=== PATIENT | female | born 1970 | race Caucasian/White ===

== ENCOUNTER 2022-12-16 15:24 | Outpatient (OUT) | payer MEDICARE, MEDICAID, SELFPAY ==
[2022-12-16 15:55] LABS: Basophils Percent Auto 0.6 % (0.2-2.0); Eosinophils Absolute Auto 0.2 10^3/uL (0.0-0.7); Hematocrit 43.8 % (36.0-48.0); Hemoglobin 14.3 g/dL (12.0-16.0); Immature Granulocytes Abs Auto 0.01 10^3/uL (0.00-0.03); Immature Granulocytes Pct Auto 0.2 % (0.0-0.5); Lymphocytes Absolute Auto 1.9 10^3/uL (1.2-3.8); Lymphocytes Percent Auto 30.5 % (20.5-60.0); Mean Corpuscular HGB Conc 32.6 g/dL (29.9-35.2); Mean Corpuscular Hemoglobin 30.3 pg (26.7-34.0); Mean Corpuscular Volume 92.8 fL (81.0-99.0); Mean Platelet Volume 10.1 fL (9.5-13.5); Monocytes Absolute Auto 0.3 10^3/uL (0.3-0.8); Monocytes Percent Auto 4.8 % (1.7-12.0); Neutrophils Absolute Auto 3.8 10^3/uL (1.4-6.5); Neutrophils Percent Auto 60.9 % (43.0-75.0); Platelet Count 238 10^3/uL (150-450); Red Blood Count 4.72 10^6/uL (4.20-5.40); Red Cell Distribution Width 13.9 % (11.0-15.0); White Blood Count 6.3 10^3/uL (4.0-11.0)
[2022-12-16 16:15] LABS: Estimated Average Glucose 197 mg/dL; Glycohemoglobin A1C 8.5 % (4.5-6.2)
[2022-12-16 16:25] LABS: HCG Quantitative 3 mIU/mL; Thyroid Stimulating Hormone 1.628 uIU/mL (0.358-3.740)
[2022-12-18 08:11] LABS: Prolactin 9.7 ng/mL (4.8-23.3)
== END 2022-12-16 15:25 | disposition home or self-care (01) ==
LOC: LAB 15:31
PROVIDERS: Visit Provider Physician Assistant
DX: N91.2 Amenorrhea, unspecified (principal)
CPT/HCPCS: 36415; 83036; 84146; 84443; 84702; 85025

== ENCOUNTER 2023-01-18 19:08 | Outpatient (REF) | payer MEDICARE, MEDICAID, SELFPAY ==
[2023-01-22 13:12] LABS: Age Gdln ACOG Testing Note (.); HPV Aptima Negative (Negative); IGP, Aptima HPV, rfx 16/18,45 Note (.)
== END 2023-01-18 19:09 | disposition home or self-care (01) ==
LOC: LAB 19:08
PROVIDERS: Visit Provider Physician Assistant
DX: Z01.419 Encounter for gynecological examination (general) (routine) without abnormal findings (principal)
CPT/HCPCS: 87624; G0145

== ENCOUNTER 2024-03-21 20:20 | Outpatient (REF) | payer MEDICARE, MEDICAID, SELFPAY ==
--- OUTSIDE RECORDS SUMMARY | 2024-03-21 20:26 | XMS_ITS | CCD ---
Author Organization [facility] Care Team Providers Care Insurance Claim Approver Name Role Phone Breanna Galvan Dot Primary Care Provider ALMA DELIA HAILE Referring Unavailab le BILLY GALVANEW Dot Primary Care Unavailable ALMA DELIA HAILE Admitting Unavailab ALMA DELIA Moncada Attending Unavailab le COLE BREANNA oDt Primary Care Unavailable COLEBREANNA DAWSON Primary Care Physician [phone] MELINA MUNOZ Attending Unavailable MELINA MUNOZ Surgeon Unavailable [place] Procedure Practitioner Unavailab le COLEBREANNA DAWSON Primary Care Unavailable COLE, BREANNA Referring Unavailable MELINA MUNOZ Admitting Unavailable MARCIO HYDE Admitting Unavailable MARCIO HYDE Attending Unavailable COLE, BREANNA Primary Care Unavailable COLE, BREANNA Referring Unavailable MARCIO HYDE Surgeon Unavailable [place] Procedure Practitioner Unavailab MELINA Valdes Attending Unavailable COLE, BREANNA Primary Care Unavailable SELF, REFERRED Referring Unavailable MELINA MUNOZ Admitting Unavailable ColeBreanna Unavailable Cole, Breanna Unavailable Danny Wright Unavailable Aranza Javed Unavailable DO Cole Breanna Dot Primary Care Provider MD Iglesia Cadet Attending Provider Alyse Goins Unavailable TAYLOR ., DR ARIAS Attending Unavailvíctor VAZQUEZ ., DR ARIAS Admitting Unavailabl e COLE BREANNA Primary Care Unavailable Luis Castellano Unavailable Andreina Thao Primary Care Physician DO Breanna Galvan Primary Care Provider [phone] MD Gordon Baker Attending Provider [phone] MD Luis Castellano Attending Provider [phone] MD Melina Salgado Attending Provider [phone] Melina Salgado Unavailable MD Melina Salgado Attending Provider [phone] NON STAFF Primary Care Provider Unavailvíctor Thao MD, Andreina Primary Care Provider KAI VIDAL Attending Unavailable KAI VIDAL Attending Unavailable VANDANA ROTHMAN Attending Unavailable KAI VIDAL Attending Unavailable MELINA SALGADO Referring Unavailable KAI VIDAL Attending Unavailable NON STAFF Primary Care Provider UnavailDO Kai Rosas Attending Provider DO Breanna Galvan Primary Care Provider [phone] MD Maynor Baker Attending Provider [phone] DO Breanna Galvan Primary Care Provider [phone] MD Maynor Baker Attending Provider DAVID APPLE Attending Unavailable GUDIMELLA, ANDREINA Referring Unavailable GUDIMELLA, ANDREINA Primary Care Unavailable GUDIMELLA, ANDREINA Referring Unavailable BREANNA GALVAN Primary Care Unavailable GUDIMELLA, ANDREINA Primary Care Unavailable RENATO COOPER Attending Unavailable ALBIN RENDON Admitting Unavailable RENATO COOPER Attending Unavailable RENATO COOPER Referring Unavailable GUDIMELLA, ANDREINA Primary Care Unavailable ALBIN RENDON Attending Unavailable ALBIN RENDON Referring Unavailable KEESHA, ANDREINA Primary Care Unavailable Kai Vidal Admitting Unavailable NON STAFF Primary Care Unavailable Kai Vidal Attending Unavailable NON STAFF Primary Care Unavailable Kai Vidal Attending Unavailable Kai Vidal Admitting Unavailable Breanna Galvan Primary Care Unavailable Maynor Baker Attending Unavailab Maynor Varma Admitting Unavailab allie Thao MD Andreina Attending Unavailable Kai Vidal Admitting Unavailable Kai Vdial Attending Unavailable MD Keesha Andreina Admitting Unavailable MD Keesha Andreina Attending Unavailable MD Keesha Andreina Attending Unavailable MD Keesha Andreina Attending Unavailable MD Keesha Sina Attending Unavailable MD Keesha Andreina Attending Unavailable MD Keesha Andreina Attending Unavailable MD Keesha Andreina Admitting Unavailable MD Keesha Andreina Attending Unavailable MD Keesha Andreina Referring Unavailable Allergies Allergy Classification Reported Allergen(s) Allergy Type Date of Onset Reaction(s) Facility (1 source) [id number] Drug allergy (disorder) 12-09-2009 [facility] Medications Current Medications Medication Drug Class(es) Dates Sig (Normalized) Sig (Original) acetaminophen 500 mg oral tablet (4 sources) Start: 06-15-2023 take 2 tablets by mouth every six hours Acetaminophen (Tylenol Extra Strength) 500 mg tablet Active 1000 MG PO Every 6 hours June 15, 2023 12:00am acetaminophen (M APAP ARTHRITIS PAIN) 650 MG extended release tablet Take 650 mg by mouth as needed 0 Active acetaminophen 325 mg / HYDROcodone bitartrate 5 mg oral tablet (20 sources) Opioid Agonist Start: 06-29-2023 take 1 tablet by mouth every six hours as needed for pain HYDROcodone-acetaminophen ([place]) 5-325 MG tablet 1 TAB ORALLY EVERY 6 HOURS NEEDED FOR PAIN FOR 7 DAYS 06/29/2023 Active Start: 12-26-2018 End: 12-26-2018 HYDROcodone-acetaminophen (N ORCO) 5-325 MG per tablet 2 tablet take 1 tablet by chleo th every six hours HYDROcodone-Acetaminophen 5-325 MG 1 tab let as needed Orally every 6 hrs ER Active [id number] actuat albuterol 0.09 mg/actuat metered dose inhaler (4 sources) beta2-Adrenergic Agonist Start: 01-03-2023 take 2 puff(s) by inhalation every six hours albuterol HFA 90 mcg/act inhaler Inhale 2 puffs every 6 (six) hours 0 01/03/2023 Active albuterol sulfat e HFA 108 (90 Base) MCG/ACT inhaler Ventolin HFA 90 mcg/actuation aerosol inhaler 0 Active alcohol prep pads (20 sources) Start: 01-02-2018 Start: 01-02-2018 alcohol prep p ads as directed once daily for 30 days Dec, Active Alcohol swabs for glucose checks (1 source) Start: 01-03-2024 Alcohol swabs for glucose checks Alcohol swabs for glucose checks, See Instructions, 100 EA, 11, Alcohol swabs for glucose checks, [facility]/pharmacy #[id number], Supply, 161, cm, 09/29/23 15:55:00 EDT, Height/Length Dosing, 88.3, kg, 09/29/23 15:55:00 EDT, Weight Dosing Start Date: 01/03/24 Status: Ordered ARIPiprazole 10 mg oral tablet (20 sources) Atypical Antipsychotic Start: 08-19-2022 take 1 tablet by mouth once daily aripiprazole 10 mg Tab 10 mg = 1 tab(s), Oral, Daily, # 90 tab(s), Refills(s) 0 Start Date: 08/19/22 Status: Ordered Start: 07-22-2022 ARIPiprazole ( Abilify) 15 MG tablet TAKE 1 TABLET BY ORAL ROUTE 1 AT BEDTIME CHANGE IN DOSAGE 07/28/2022 Active Start: 07-22-2022 take 10 mg by mouth once daily Aripiprazole Active 10 MG PO Daily July 22, 2022 12:00am azithromycin 250 mg oral tablet (1 source) Macrolide Antimicrobial Start: 11-17-2022 End: 11-20-2022 take 1 tablet by mouth once daily azithromycin 250 mg Tab 250 mg = 1 tab(s), Oral, Daily, X 3 day(s), # 3 tab(s), Refills(s) 0, Pharmacy: [facility]/pharmacy #[id number], 160, cm, 11/14/22 18:51:00 EDT, Height/Length Dosing, 93, kg, 11/14/22 18:51:00 EDT, Weight Dosing Start Date: 11/17/22 Stop Date: 11/20/22 Status: Ordered benzocaine 0.2 mg/mg oral gel (4 sources) Standardized Chemical Allergen Start: 03-31-2023 Orajel 20% mucous membrane gel See Instructions, 15 gm, Refill(s) 1, Apply to affected area BID, [facility]pharm[facility] #[id number], 160, cm, 03/31/23 14:00:00 EST, Height/Length Dosing, 85.4, kg, 03/31/23 14:00:00 EST, Weight Dosing Start Date: 03/31/23 Status: Ordered Blood Glucose Test - (20 sources) Start: 01-02-2018 Start: 01-02-2018 Blood Glucose Test - as directed In Vitro once daily for 30 days dx: E11.29 Dec, Active busPIRone hydrochloride 10 mg oral tablet (20 sources) Start: 08-19-2022 take 1 tablet by mouth twice daily busPIRone 10 mg Tab 10 mg = 1 tab(s), Oral, BID, Refills(s) 0 Start Date: 08/19/22 Status: Ordered Start: 07-20-2022 take 1 tablet by chloe th in the morning busPIRone (Buspar) 30 MG tablet Take 30 mg by mouth in the morning and 30 mg before bedtime. 07/20/2022 Active Start: 03-30-2022 take 1 tablet by chloe th in the morning busPIRone (Buspar) 15 MG tablet Take 15 mg by mouth in the morning and 15 mg before bedtime. 03/30/2022 Active BuSpar Active calcium chloride 0.0014 meq/ml / potassium chloride 0.004 meq/ml / sodium chloride 0.103 meq/ml / sodium lactate 0.028 meq/ml injectable solution (1 source) Start: 12-26-2018 lactated ringers infusion canagliflozin 300 mg oral tablet (20 sources) Sodium-Glucose Cotransporter 2 Inhibitor Start: 09-29-2023 take 1 tablet by mouth once daily Invokana 300 mg oral tablet 300 mg = 1 tab(s), Oral, Daily, # 90 tab(s), Refills(s) 3, Pharmacy: [facility]/pharmacy #[id number], 161, cm, 09/29/23 15:55:00 EDT, Height/Length Dosing, 88.3, kg, 09/29/23 15:55:00 EDT, Weight Dosing Start Date: 09/29/23 Status: Ordered Start: 08-23-2018 End: 02-27-2019 take 100 mg by mouth once daily in the morning Canagliflozin Discontinued 100 MG PO Every morning August 23, 2018 12:00am February 27, 2019 2:34pm Start: 01-02-2018 End: 07-22-2022 Canagliflozin (Invokana) 300 mg tablet Discontinued MG TABLET July 22, 2022 12:00am July 22, 2022 8:37am cefadroxil 500 mg oral capsule (6 sources) Cephalosporin Antibacterial Start: 06-29-2023 take 1 capsule by mouth twice daily cefadroxil (Duricef) 500 MG capsule 500 MG ORALLY TWICE DAILY FOR 7 DAYS 06/29/2023 Active cephalexin 500 mg oral capsule (4 sources) Cephalosporin Antibacterial Start: 09-06-2021 End: 09-11-2021 take 1 capsule by mouth every six hours Keflex 500 mg Cap 500 mg = 1 cap(s), Oral, q6hr, X 5 day(s), # 20 cap(s), Refills(s) 0, Pharmacy: [facility]/pharmacy #[id number], 160, cm, 09/05/21 23:27:00 EDT, Height/Length Dosing, 90, kg, 09/05/21 23:27:00 EDT, Weight Dosing Start Date: 09/06/21 Stop Date: 09/11/21 Status: Ordered Start: 08-08-2021 take 1 capsule by mo ut three times daily Keflex 500 mg Cap 500 mg = 1 cap(s), Oral, TID, Take one capsule by mouth three times a day for ten days, # 30 cap(s), Refills(s) 0, Pharmacy: [facility]/pharmacy #[id number], 160, cm, 08/08/21 15:55:00 EDT, Height/Length Dosing, 90.5, kg, 08/08/21 15:55:00 EDT, Weight Dosing Start Date: 08/08/21 Status: Ordered ciprofloxacin 250 mg oral tablet (2 sources) Quinolone Antimicrobial Start: 09-06-2021 End: 09-11-2021 take 1 tablet by mouth every twelve hours ciprofloxacin 250 mg Tab 250 mg = 1 tab(s), Oral, q12hr, X 5 day(s), # 10 tab(s), Refills(s) 0, Pharmacy: [facility]/pharmacy #[id number], 160, cm, 09/05/21 23:27:00 EDT, Height/Length Dosing, 90, kg, 09/05/21 23:27:00 EDT, Weight Dosing Start Date: 09/06/21 Stop Date: 09/11/21 Status: Ordered citalopram 40 mg oral tablet (20 sources) Serotonin Reuptake Inhibitor Start: 08-23-2018 take 1 tablet by mouth once daily CeleXA 40 mg Tab 40 mg = 1 tab(s), Oral, Daily, Refills(s) 0 Start Date: 01/16/21 Status: Ordered take 2 tablets by mouth once jose ly citalopram (CELEXA) 20 MG tablet Take 40 mg by mouth daily 0 Active cloNIDine hydrochloride 0.1 mg oral tablet (20 sources) Central alpha-2 Adrenergic Agonist Start: 07-22-2022 End: 11-16-2022 take 1 tablet by mouth once daily cloNIDine 0.1 mg tab 0.1 mg = 1 tab(s), Oral, Daily, Refills(s) 0 Start Date: 08/19/22 Status: Ordered clopidogrel 75 mg oral tablet (5 sources) [id number] Platelet Inhibitor Start: 09-27-2023 End: 10-12-2024 take 1 tablet by mouth once daily clopidogrel (Plavix) 75 MG tablet Indications: Cerebral infarction due to thrombosis of right middle cerebral artery (CMS/HCC) Take 1 tablet (75 mg) by mouth Daily 30 tablet 5 10/13/2023 10/12/2024 Active dexamethasone 1 mg/ml oral solution (1 source) Corticosteroid Start: 03-31-2023 End: 04-07-2023 dexamethasone 1 mg/mL oral concentrate 4 mg = 4 mL, Oral, BID, Swish and spit after 2 minutes. No food or drink for 30 minutes after, X 7 day(s), # 56 mL, Refills(s) 0, Pharmacy: [facility]/pharmacy #[id number], 160, cm, 03/31/23 14:00:00 EST, Height/Length Dosing, 85.4, kg, 03/31/23 14:00:00 EST, Weight Dosing Start Date: 03/31/23 Stop Date: 04/07/23 Status: Ordered Dexcom G7 Lubrication Technician - (7 sources) Start: 05-17-2022 Dexcom G7 Lubrication Technician - as directed externally daily for 90 days May, Active Dexcom G7 Sensor - (7 sources) Start: 05-17-2022 Dexcom G7 Sensor - as directed externally every ten days for 90 days May, Active dicyclomine hydrochloride 20 mg oral tablet (20 sources) Anticholinergic Start: 10-08-2021 take 1 tablet by mouth three times daily dicyclomine 20 mg Tab See Instructions, TAKE 1 TABLET BY MOUTH THREE TIMES A DAY, # 270 tab(s), Refills(s) 1, Pharmacy: [facility] STORE [id number], 161, cm, 09/29/23 15:55:00 EDT, Height/Length Dosing, 88.3, kg, 09/29/23 15:55:00 EDT, Weight Dosing Start Date: 01/10/24 Status: Ordered 1 ml diphenhydrAMINE hydrochloride 50 mg/ml cartridge (1 source) Histamine-1 Receptor Antagonist Start: 12-26-2018 End: 12-26-2018 diphenhydrAMINE (BENADRYL) injection 12.5 mg 0.5 ml dulaglutide 1.5 mg/ml auto-injector (17 sources) GLP-1 Receptor Agonist Start: 12-18-2020 inject 0.75 mg by subcutaneous injection every week Trulicity Pen 0.75 mg/0.5 mL subcutaneous solution 0.75 mg, SubCutaneous, qWeek, Refills(s) 0 Start Date: 01/16/21 Status: Ordered estradiol 0.1 mg/ml vaginal cream (13 sources) Estrogen Start: 12-16-2022 End: 12-16-2023 estradiol (Estrace) 0.1 MG/GM vaginal cream Indications: Amenorrhea Insert 2 g into the vagina at bedtime. At bedtime for 2 weeks, then at bedtime twice a week. 42.5 g 3 12/16/2022 12/16/2023 Active Start: 04-01-2022 estradiol (Est race) 0.1 MG/GM vaginal cream 1 (ONE) GRAM INSERTED VAGINALLY DIRECTED 3 NIGHTS PER WEEK BEFORE BED 04/01/2022 Active 2 ml fentaNYL 0.05 mg/ml injection (1 source) Opioid Agonist Start: 12-26-2018 fentaNYL (SUBL IMAZE) injection 50 mcg fluconazole 150 mg oral tablet (20 sources) Azole Antifungal Start: 12-07-2022 fluconazole 1 50 mg Tab See Instructions, Take one now, take 2nd tab in 72 hours of symptoms persist, # 2 tab(s), Refills(s) 0, Pharmacy: [facility]/pharmacy #[id number], 160, cm, 11/18/22 14:40:00 EDT, Height/Length Dosing, 91.9, kg, 11/18/22 14:40:00 EDT, Weight Dosing Start Date: 12/07/22 Status: Ordered Start: 01-05-2021 fluconazole 15 0 mg Tab Refills(s) 0 Start Date: 02/19/21 Status: Ordered fluticasone (20 sources) Corticosteroid Start: 08-19-2022 take 50 ug by inhalation once daily fluticasone propionate 50 mcg, Inhalation, Daily, Refills(s) 0 Start Date: 08/19/22 Status: Ordered Start: 07-22-2022 take 1 spray(s) nasa l route once daily Fluticasone Propionate Active 1 SPRAY INTRANASAL Daily July 22, 2022 12:00am administer into each nostril Start: 04-14-2020 take 1 spray(s) nasa l route once daily as needed Fluticasone Propionate 50 MCG/ACT 1 spray in each nostril Nasally Once a day for 30 day(s) prn Apr, Active FreeStyle Bimal 2 [place] - (3 sources) Start: 08-06-2021 FreeStyle Libr e 2 [place] - 1 four times a day for 365 days Jul, Active FreeStyle Bimal 2 Sensor - (3 sources) Start: 08-06-2021 FreeStyle Libr e 2 Sensor - 1 subcutaneously every 2 weeks for 30 day(s) Jul, Active furosemide 20 mg oral tablet (20 sources) Loop Diuretic Start: 08-18-2021 take 1 tablet by mouth once daily furosemide 20 mg Tab 20 mg = 1 tab(s), Oral, Daily, # 90 tab(s), Refills(s) 3, Pharmacy: [facility]/pharmacy #[id number], 160, cm, 08/17/23 14:15:00 EDT, Height/Length Dosing, 87.8, kg, 08/17/23 14:15:00 EDT, Weight Dosing Start Date: 08/17/23 Status: Ordered gabapentin 600 mg oral tablet (20 sources) Anti-epileptic Agent Start: 09-29-2023 take 1 tablet by mouth once daily gabapentin 600 mg Tab 600 mg = 1 tab(s), Oral, Daily, # 90 tab(s), Refills(s) 1, [id number], 161, cm, 09/29/23 15:55:00 EDT, Height/Length Dosing, 88.3, kg, 09/29/23 15:55:00 EDT, Weight Dosing Start Date: 09/29/23 Status: Ordered Start: 06-29-2023 take 1 tablet by chloe once daily gabapentin 600 mg Tab 600 mg = 1 tab(s), Oral, Daily, # 90 tab(s), Refills(s) 0, [id number], 160, cm, 03/31/23 14:00:00 EST, Height/Length Dosing, 85.4, kg, 03/31/23 14:00:00 EST, Weight Dosing Start Date: 06/29/23 Status: Ordered Start: 03-11-2023 take 1 tablet by chloe once daily gabapentin 600 mg Tab 600 mg = 1 tab(s), Oral, Daily, # 90 tab(s), Refills(s) 0, [id number], 160, cm, 02/17/23 15:40:00 EST, Height/Length Dosing, 88.2, kg, 02/17/23 15:40:00 EST, Weight Dosing Start Date: 03/11/23 Status: Ordered Start: 01-16-2021 take 2 capsules by [facility] once daily Neurontin 300 mg Cap 600 mg = 2 cap(s), Oral, Daily, Refills(s) 0 Start Date: 01/16/21 Status: Ordered Start: 01-16-2021 take 1 capsule by [facility] three times daily Neurontin 300 mg Cap 300 mg = 1 cap(s), Oral, TID, Refills(s) 0 Start Date: 01/16/21 Status: Ordered Start: 08-23-2018 take 600 mg by mouth once eugenia y Gabapentin Active 600 MG PO Daily August 23, 2018 12:00am Start: 08-23-2018 take 300 mg by mouth twice daily Gabapentin Active 300 MG PO Twice daily August 22, 2018 11:00pm Start: 01-02-2018 take 1 tablet by chloe once daily gabapentin 600 mg Tab 600 mg = 1 tab(s), Oral, Daily, # 90 tab(s), Refills(s) 0, Pharmacy: [facility] #[id number], 160, cm, 08/19/22 14:07:00 EDT, Height/Length Dosing, 93.3, kg, 08/19/22 14:07:00 EDT, Weight Dosing Start Date: 11/04/22 Status: Ordered Start: 01-02-2018 take 1 capsule by mo ut every twenty-four hours Gabapentin 300 MG 1 capsule Orally Once a day for 90 day(s) Dec, Active gabapentin (Neur ontin) 600 MG tablet every 8 (eight) hours. Active glimepiride 2 mg oral tablet (20 sources) Sulfonylurea Start: 09-29-2023 take 2 tablets by mouth twice daily glimepiride 2 mg Tab 4 mg = 2 tab(s), Oral, BID, # 360 tab(s), Refills(s) 2, Pharmacy: [facility]/pharmacy #[id number], 161, cm, 09/29/23 15:55:00 EDT, Height/Length Dosing, 88.3, kg, 09/29/23 15:55:00 EDT, Weight Dosing Start Date: 09/29/23 Status: Ordered Start: 12-28-2022 [facility] glimepiride 2 mg Tab 4 mg = 2 tab(s), Oral, BID, # 360 tab(s), Refills(s) 2, Pharmacy: [facility]/pharmacy #[id number], 160, cm, 11/18/22 14:40:00 EDT, Height/Length Dosing, 91.9, kg, 11/18/22 14:40:00 EDT, Weight Dosing Start Date: 12/28/22 Status: Ordered Start: 01-16-2021 [facility] 2 [facility] glimepiride 2 mg Tab 4 mg = 2 tab(s), Oral, BID, Refills(s) 0 Start Date: 01/16/21 Status: Ordered Start: 01-16-2021 [facility] glimepiride 2 mg Tab 2 mg = 1 tab(s), Oral, Daily, Refills(s) 0 Start Date: 01/16/21 Status: Ordered Start: 08-23-2018 take 4 mg by mouth twice daily Glimepiride Active 4 MG PO Twice daily August 23, 2018 12:00am Start: 08-23-2018 take 4 mg by mouth o nce daily in the morning Glimepiride Active 4 MG PO Every morning August 22, 2018 11:00pm Start: 01-02-2018 take 1 tablet by chloe th every twelve hours Glimepiride 4 MG 1 tablet Orally bid for 30 days Dec, Active take 1 tablet by chloe th once daily glimepiride (AMARYL) 2 MG tablet Take 2 mg by mouth daily 0 Active glucagon (rdna) 1 mg injection (1 source) Antihypoglycemic Agent Start: 12-26-2018 glucago n (rDNA) injection 1 mg Glucometer n/a (20 sources) Glucometer n/a c heck blood sugar as directed daily DX: E 11.29 Active 150 ml glucose 50 mg/ml inje ction (3 sources) Start: 12-26-2018 dextrose 5 % s olution Start: 12-26-2018 glucose (GLUTO SE) 40 % oral gel 15 g Start: 12-26-2018 dextrose 50 % IV solution Guardian Link 3 Transmitter - (5 sources) Start: 08-27-2021 Guardian Link 3 Transmitter - 1 qid for 365 day(s) Aug, Active Guardian Sensor 3 - (5 sources) Start: 08-27-2021 Guardian Senso r 3 - 1 subcutaneously every 2 weeks for 90 day(s) Aug, Active hydrocortisone 25 mg/ml topical cream (17 sources) Corticosteroid Start: 08-19-2022 hydrocortisone Top 2.5% Crm 1 luci, Topical, BID, 30 gram, Refill(s) 1, [facility]/pharmacy #[id number], 160, cm, 08/19/22 14:07:00 EDT, Height/Length Dosing, 93.3, kg, 08/19/22 14:07:00 EDT, Weight Dosing Start Date: 08/19/22 Status: Ordered Start: 08-19-2022 hydrocortisone 2.5 % cream Apply topically 08/19/2022 Active 1 ml HYDROmorphone hydrochloride 1 mg/ml cartridge (1 source) Opioid Agonist Start: 12-26-2018 HYDROmorphone (DILAUDID) injection 0.5 mg hydrOXYzine hydrochloride 50 mg oral tablet (20 sources) Antihistamine Start: 08-23-2018 take 1-2 tablets by mouth at bedtime as needed hydrOXYzine hydrochloride 50 mg oral tablet Take 1-2 tabs at bedtime as needed, Refills(s) 0 Start Date: 08/19/22 Status: Ordered ibuprofen 800 mg oral tablet (20 sources) Nonsteroidal Anti-inflammatory Drug Start: 12-30-2023 take 1 tablet by mouth three times daily ibuprofen 800 mg Tab See Instructions, TAKE 1 TABLET BY MOUTH THREE TIMES A DAY, # 90 tab(s), Refills(s) 1, Pharmacy: [facility] STORE [id number], 161, cm, 09/29/23 15:55:00 EDT, Height/Length Dosing, 88.3, kg, 09/29/23 15:55:00 EDT, Weight Dosing Start Date: 12/30/23 Status: Ordered Start: 11-24-2022 take 1 tablet by chloe th three times daily ibuprofen 800 mg Tab 800 mg = 1 tab(s), Oral, TID, # 30 tab(s), Refills(s) 0, Pharmacy: [facility]/pharmacy #[id number], 160, cm, 11/18/22 14:40:00 EDT, Height/Length Dosing, 91.9, kg, 11/18/22 14:40:00 EDT, Weight Dosing Start Date: 11/24/22 Status: Ordered Start: 10-23-2021 take 800 mg by mouth every eight hours Ibuprofen Active 800 MG PO Q8H July 22, 2022 12:00am 3 ml insulin aspart, human 100 unt/ml pen injector (20 sources) Insulin Analog Start: 08-19-2022 NovoLOG FlexPe n 100 units/mL injectable solution See Instructions, Refills(s) 0 Start Date: 08/19/22 Status: Ordered Start: 11-09-2021 inject 30 [IU] by alejandro bcutaneous injection once daily, then inject 100 [IU] by subcutaneous injection three times daily NovoLOG FLEXPEN 100 UNIT/ML pen INJECT UP TO 30 UNITS DAILY SUBCUTANEOUSLY 3 TIMES A DAY DIRECTED PER SLIDING SCALE 04/24/2022 Active 3 ml insulin degludec 100 unt/ml pen injector (1 source) Insulin Analog Start: 08-02-2019 Insulin Deglud ec (Tresiba Flextouch U-100) 100 unit/mL (3 mL) Insulin Pen Active 24 UNIT SUBCUT Daily August 01, 2019 11:00pm Levemir (20 sources) Insulin Analog Start: 08-19-2022 Levemir See In structions, Refills(s) 0 Start Date: 08/19/22 Status: Ordered Start: 07-22-2022 End: 06-15-2023 inject 35 [IU] by subcutaneous injection twice daily Insulin Detemir U-100 (Levemir U-100 Insulin) 100 unit/mL Solution Discontinued 35 UNIT SUBCUT Twice daily July 22, 2022 12:00am June 15, 2023 2:20pm Start: 04-22-2021 inject 35 [IU] by alejandro bcutaneous injection twice daily Levemir 100 UNIT/ML 35 units Subcutaneous twice a day for 30 day(s) Apr, Active Start: 04-22-2021 inject 30 [IU] by alejandro bcutaneous injection twice daily Levemir 100 UNIT/ML 30 units Subcutaneous twice a day for 30 day(s) Apr, Active Start: 04-22-2021 inject 20 [IU] by alejandro bcutaneous injection twice daily Start: 04-22-2021 inject 15 [IU] by alejandro bcutaneous injection once daily Levemir 100 UNIT/ML 15 units Subcutaneous qd for 30 day(s) Apr, Active insulin glargine 100 unt/ml injectable solution (1 source) Insulin Analog Start: 01-05-2024 Lantus 100 units/mL Injection-Insulin See Instructions, Start 10 units at bedtime. Increase insulin by 5 units every 3 days until morning glucose Start Date: 01/05/24 Status: Ordered ketorolac tromethamine 10 mg oral tablet (6 sources) Nonsteroidal Anti-inflammatory Drug, Cyclooxygenase Inhibitor Toradol 10mg po Active lisinopril 2.5 mg oral tablet (20 sources) Angiotensin Converting Enzyme Inhibitor Start: 01-02-2018 End: 11-16-2022 take 1 tablet by mouth once daily lisinopril 2.5 mg Tab 2.5 mg = 1 tab(s), Oral, Daily, Refills(s) 0 Start Date: 01/16/21 Status: Ordered medicated lip balm (BLISTEX/CARMEX) stick (1 source) Start: 12-26-2018 medicated lip balm (BLISTEX/CARMEX) stick melatonin 10 mg oral capsule (2 sources) Start: 06-15-2023 take 10 mg by mouth once daily at bedtime Melatonin Active 10 MG PO Daily at bedtime June 15, 2023 12:00am 1 ml meperidine hydrochloride 25 mg/ml cartridge (1 source) Opioid Agonist Start: 12-26-2018 meperidine (DEMEROL) injection 12.5 mg 24 hr metFORMIN hydrochloride 500 mg extended release oral tablet (20 sources) Biguanide Start: 03-17-2023 take 1 tablet by mouth every twenty-four hours in the morning metFORMIN XR (Glucophage-XR) 500 MG 24 hr tablet Take 1,000 mg by mouth in the morning and 1,000 mg before bedtime. 0 03/17/2023 Active Start: 03-17-2023 [facility] 2 [facility] metformin 500 mg ER Tab 1,000 mg = 2 tab(s), Oral, BID, # 120 tab(s), Refills(s) 0, Pharmacy: [facility]/pharmacy #[id number], 160, cm, 02/17/23 15:40:00 EST, Height/Length Dosing, 88.2, kg, 02/17/23 15:40:00 EST, Weight Dosing Start Date: 03/17/23 Status: Ordered Start: 02-17-2023 take 1 tablet by chloe [facility] twice daily metformin 850 mg Tab 850 mg = 1 tab(s), Oral, BID, # 180 tab(s), Refills(s) 0, Pharmacy: [facility]/pharmacy #[id number], 160, cm, 02/17/23 15:40:00 EST, Height/Length Dosing, 88.2, kg, 02/17/23 15:40:00 EST, Weight Dosing Start Date: 02/17/23 Status: Ordered Start: 12-18-2020 take 1 tablet by chloe th every twenty-four hours metformin 750 mg Tab-ER (2 sources) Start: 01-16-2021 take 1 tablet by mouth once daily metformin 750 mg Tab-ER 750 mg = 1 tab(s), Oral, Daily, Refills(s) 0 Start Date: 01/16/21 Status: Ordered methocarbamol 750 mg oral tablet (5 sources) Muscle Relaxant Start: 02-19-2021 methocarbamol 750 mg Tab Refills(s) 0 Start Date: 02/19/21 Status: Ordered 2 ml metoclopramide 5 mg/ml prefilled syringe (1 source) Dopamine-2 Receptor Antagonist Start: 12-26-2018 End: 12-26-2018 metoclopramide (REGLAN) injection 10 mg Multiple Vitamin (Daily Vitamin) tablet (7 sources) Multiple Vitamin (Daily Vitamin) tablet 1 (one) time each day at the same time. Active Multiple Vitamin (Daily Vitamin) tablet 1 (one) time each day at the same time. 0 Active MULTIPLE VITAMIN PO (1 source) Start: 08-23-2018 MULTIPLE VITAM IN PO Take by mouth 0 08/23/2018 Active Multivitamin (Multiple Vitamins) Tablet (6 sources) Start: 08-23-2018 take 1 tablet by mouth once daily Multivitamin (Multiple Vitamins) Tablet Active 1 TAB PO Daily August 23, 2018 12:00am Start: 08-23-2018 take 1 tablet by chloe th once daily Multivitamin (Multiple Vitamins) Tablet Active 1 TAB PO Daily August 22, 2018 11:00pm Multivitamin preparation (20 sources) Start: 08-19-2022 multivitamin S ee Instructions, Refill(s) 0 Start Date: 08/19/22 Status: Ordered Start: 10-23-2021 take 1 tablet by chloe th once daily Multivitamin - 1 tablet Orally Once a day for 90 day(s) k Oct, Active Start: 10-23-2021 take 1 tablet by chloe th once daily Multivitamin - 1 tablet Orally Once a day for 90 day(s) Oct, Active mupirocin 20 mg/ml topical cream (20 sources) RNA Synthetase Inhibitor Antibacterial Start: 08-19-2022 mupirocin Top 2% Crm See Instructions, Refill(s) 0 Start Date: 08/19/22 Status: Ordered Start: 01-12-2022 Mupirocin 2 % 1 application to affected area Externally 2 times a day for 7 days Dec, Active naltrexone 380 mg injection (20 sources) Opioid Antagonist Start: 07-24-2022 Vivitrol inj ection 07/24/2022 Active Start: 07-22-2022 End: 06-15-2023 inject 380 mg by intramuscular injection every month Naltrexone Microspheres (Vivitrol) 380 mg suspension,extended rel recon Discontinued 380 MG IM every month July 22, 2022 12:00am June 15, 2023 2:18pm nicotine 2 mg chewing gum (11 sources) Cholinergic Nicotinic Agonist Start: 11-18-2022 nicotine polacrilex (Nicorette) 2 MG gum 2 mg 0 11/18/2022 Active Start: 08-06-2021 apply 1 dose transdermal route once daily omeprazole 40 mg delayed release oral capsule (20 sources) Proton Pump Inhibitor Start: 05-27-2023 take 1 capsule by mouth twice daily omeprazole 40 mg Cap-DR 40 mg = 1 cap(s), Oral, BID, # 60 cap(s), Refills(s) 11, Pharmacy: [facility]/pharmacy #[id number], 160, cm, 03/31/23 14:00:00 EST, Height/Length Dosing, 85.4, kg, 03/31/23 14:00:00 EST, Weight Dosing Start Date: 05/27/23 Status: Ordered Start: 11-04-2022 take 1 capsule by [facility] twice daily omeprazole 40 mg Cap-DR 40 mg = 1 cap(s), Oral, BID, # 60 cap(s), Refills(s) 2, Pharmacy: [facility]/pharmacy #[id number], 160, cm, 08/19/22 14:07:00 EDT, Height/Length Dosing, 93.3, kg, 08/19/22 14:07:00 EDT, Weight Dosing Start Date: 11/04/22 Status: Ordered Start: 08-19-2022 take 1 capsule by [facility] twice daily omeprazole 40 mg Cap-DR 40 mg = 1 cap(s), Oral, BID, # 60 cap(s), Refills(s) 2, Pharmacy: [facility]/pharmacy #[id number], 160, cm, 08/19/22 14:07:00 EDT, Height/Length Dosing, 93.3, kg, 08/19/22 14:07:00 EDT, Weight Dosing Start Date: 08/19/22 Status: Ordered Start: 01-16-2021 take 1 capsule by mo [facility] once daily omeprazole 20 mg Cap-DR 20 mg = 1 cap(s), Oral, Daily, # 30 cap(s), Refills(s) 0 Start Date: 01/16/21 Status: Ordered Start: 04-11-2018 take 40 mg by mouth once daily Omeprazole Active 40 MG PO Daily February 27, 2019 1:00am omeprazole 20 mg Cap-DR (3 sources) Start: 01-16-2021 take 1 capsule by mouth once daily omeprazole 20 mg Cap-DR 20 mg = 1 cap(s), Oral, Daily, # 30 cap(s), Refills(s) 0 Start Date: 01/16/21 Status: Ordered penicillin v potassium 500 mg oral tablet (1 source) Start: 12-26-2018 penicillin v p otassium (VEETID) tablet 500 mg Start: 12-26-2018 penicillin v p otassium (VEETID) tablet 500 mg Potassium Chloride (20 sources) Start: 01-03-2024 take 1 tablet by mouth once daily Potassium Chloride (Uoj-Hjpi-Ssu 10) 10 mEq oral tablet, extended release See Instructions, TAKE 1 TABLET BY MOUTH EVERY DAY, # 90 tab(s), Refills(s) 0, Pharmacy: [facility] STORE [id number], 161, cm, 09/29/23 15:55:00 EDT, Height/Length Dosing, 88.3, kg, 09/29/23 15:55:00 EDT, Weight Dosing Start Date: 01/03/24 Status: Ordered Start: 03-11-2023 take 1 tablet by chloe th once daily Potassium Chloride (Eqv-K-Tab) 10 mEq oral tablet, extended release 10 mEq = 1 tab(s), Oral, Daily, # 90 tab(s), Refills(s) 1, Pharmacy: [facility]/pharmacy #[id number], 160, cm, 02/17/23 15:40:00 EST, Height/Length Dosing, 88.2, kg, 02/17/23 15:40:00 EST, Weight Dosing Start Date: 03/11/23 Status: Ordered Start: 08-19-2022 take 1 tablet by chloe th once daily Potassium Chloride (Eqv-K-Tab) 10 mEq oral tablet, extended release 10 mEq = 1 tab(s), Oral, Daily, Refills(s) 0 Start Date: 08/19/22 Status: Ordered Start: 11-17-2021 take 1 tablet by chloe th once daily at mealtime potassium chloride CR (Klor-Con) 10 MEQ ER tablet TAKE 1 TABLET BY MOUTH EVERY DAY WITH FOOD FOR 30 DAYS 06/29/2022 Active predniSONE 10 mg oral tablet (4 sources) Start: 11-16-2022 End: 11-25-2022 predniSONE 10 mg Tab = 1 -, Oral, As Directed, Take 3 tabs by mouth daily x3 days, then 2 tabs daily x3 days, then 1 tab daily x3 days., X 9 day(s), # 18 tab(s), Refills(s) 0, [id number] 160, cm, 11/14/22 18:51:00 EDT, Height/Length Dosing, 93, kg, 11/14/22 18:51:00 EDT, Weight Dosing Start Date: 11/16/22 Stop Date: 11/25/22 Status: Ordered Start: 09-06-2021 End: 09-09-2021 take 2 tablets by mouth once daily predniSONE 20 mg Tab 40 mg = 2 tab(s), Oral, Daily, X 3 day(s), # 6 tab(s), Refills(s) 0, [id number], 160, cm, 09/06/21 16:17:00 EDT, Height/Length Dosing, 90, kg, 09/06/21 16:17:00 EDT, Weight Dosing Start Date: 09/06/21 Stop Date: 09/09/21 Status: Ordered Start: 07-21-2021 End: 07-28-2021 take 3 tablets by mouth once daily predniSONE 20 mg Tab 60 mg = 3 tab(s), Oral, Daily, X 7 day(s), # 21 tab(s), Refills(s) 0, [id number], 160, cm, 07/21/21 13:28:00 EDT, Height/Length Dosing, 90.5, kg, 07/21/21 13:28:00 EDT, Weight Dosing Start Date: 07/21/21 Stop Date: 07/28/21 Status: Ordered Probiotic & Acidophilus Ex St - (10 sources) Start: 04-22-2021 take 1 capsule by mouth once daily Probiotic & Acidophilus Ex St - 1 cap(s) Orally qd for 90 day(s) Apr, Active Robaxin-750 (16 sources) Robaxin-750 ER Active rosuvastatin calcium 40 mg oral tablet (20 sources) HMG-CoA Reductase Inhibitor Start: 04-28-2021 take 1 tablet by mouth once daily rosuvastatin 40 mg Tab 40 mg = 1 tab(s), Oral, Daily, # 90 tab(s), Refills(s) 3, [id number], 161, cm, 09/29/23 15:55:00 EDT, Height/Length Dosing, 88.3, kg, 09/29/23 15:55:00 EDT, Weight Dosing Start Date: 09/29/23 Status: Ordered semaglutide 14 mg oral tablet (20 sources) Start: 02-17-2023 take 1 tablet by mouth once daily Rybelsus 14 mg oral tablet 14 mg = 1 tab(s), Oral, Daily, # 90 tab(s), Refills(s) 3, [id number], 160, cm, 02/17/23 15:40:00 EST, Height/Length Dosing, 88.2, kg, 02/17/23 15:40:00 EST, Weight Dosing Start Date: 02/17/23 Status: Ordered Start: 11-04-2022 take 1 tablet by chloe th in the morning Rybelsus 7 MG tablet Take 7 mg by mouth in the morning. 11/16/2022 Active Start: 08-19-2022 take 1 tablet by chloe th once daily Rybelsus 7 mg oral tablet 7 mg = 1 tab(s), Oral, Daily, # 90 tab(s), Refills(s) 0, [id number], 160, cm, 08/19/22 14:07:00 EDT, Height/Length Dosing, 93.3, kg, 08/19/22 14:07:00 EDT, Weight Dosing Start Date: 08/19/22 Status: Ordered Start: 05-13-2020 End: 07-22-2022 take 1 tablet by mouth once daily Semaglutide (Rybelsus) 3 mg Tablet Discontinued 3 MG PO Daily May 13, 2020 12:00am July 22, 2022 8:37am Start: 05-07-2020 Rybelsus 7 MG 1 tablet at least 30 minutes before first food, beverage or other oral medicine of the day Orally Once a day for 90 day(s) Apr, Not-Taking Start: 02-27-2019 End: 08-02-2019 Semaglutide (Ozempic) 0.25 m g or 0.5 mg(2 mg/1.5 mL) Pen Injector Discontinued 0.25 MG SUBCUT every week February 27, 2019 1:00am August 02, 2019 9:03am Semaglutide (Rybelsus) 7 mg tablet (2 sources) Start: 06-15-2023 take 1 tablet by mouth once daily Semaglutide (Rybelsus) 7 mg tablet Active 7 MG PO Daily June 15, 2023 12:00am sensor (9 sources) Start: 08-17-2023 sensor sensor, See Instructions, 12 EA, 3, dexcom G7 sensor, [facility]/pharmacy #[id number], Supply, 160, cm, 08/17/23 14:15:00 EDT, Height/Length Dosing, 87.8, kg, 08/17/23 14:15:00 EDT, Weight Dosing Start Date: 08/17/23 Status: Ordered Start: 09-24-2022 sensor sensor, See Instructions, 12 EA, 1, dexcom G7 sensor, [facility]/pharmacy #[id number], Supply, 160, cm, 08/19/22 14:07:00 EDT, Height/Length Dosing, 93.3, kg, 08/19/22 14:07:00 EDT, Weight Dosing Start Date: 09/24/22 Status: Ordered SITagliptin 100 mg oral tablet (9 sources) Dipeptidyl Peptidase 4 Inhibitor Start: 09-29-2023 take 1 tablet by mouth once daily Januvia 100 mg Tab 100 mg = 1 tab(s), Oral, Daily, # 90 tab(s), Refills(s) 3, Pharmacy: [facility]/pharmacy #[id number], 161, cm, 09/29/23 15:55:00 EDT, Height/Length Dosing, 88.3, kg, 09/29/23 15:55:00 EDT, Weight Dosing Start Date: 09/29/23 Status: Ordered Start: 03-25-2023 take 1 tablet by chloe th once daily Januvia 50 mg Tab 50 mg = 1 tab(s), Oral, Daily, # 90 tab(s), Refills(s) 1, Pharmacy: [facility]/pharmacy #[id number], 160, cm, 03/31/23 14:00:00 EST, Height/Length Dosing, 85.4, kg, 03/31/23 14:00:00 EST, Weight Dosing Start Date: 07/26/23 Status: Ordered 1000 ml sodium chloride 9 mg /ml injection (3 sources) Start: 12-26-2018 0.9 % sodium c hloride infusion Start: 12-26-2018 sodium chlorid e flush 0.9 % injection 10 mL traZODone hydrochloride 100 mg oral tablet (20 sources) Serotonin Reuptake Inhibitor Start: 07-28-2022 take 1 tablet by mouth once at bedtime traZODone (Desyrel) 100 MG tablet TAKE 1 TABLET BY ORAL ROUTE PER AT BEDTIME CHANGE IN DOSAGE 07/28/2022 Active Start: 07-22-2022 take 1 tablet by chloe th once daily at bedtime traZODONE 50 mg Tab 50 mg = 1 tab(s), Oral, Once a day (at bedtime), # 30 tab(s), Refills(s) 0 Start Date: 08/19/22 Status: Ordered Zofran ODT 4 mg Tab-Dis (7 sources) Start: 07-12-2017 take 1 tablet by mouth every eight hours Zofran ODT 4 mg Tab-Dis 4 mg = 1 tab(s), Oral, q8hr, # 12 tab(s), Refills(s) 0, Pharmacy: [id number] Start Date: 07/12/17 Status: Ordered Completed/Discontinued Medications Medication Drug Class(es) Dates Sig (Normalized) Sig (Original) acetaminophen 325 mg / oxyCODONE hydrochloride 5 mg oral tablet (6 sources) Opioid Agonist Start: 04-23-2020 End: 07-22-2022 take 1 tablet by mouth every six hours Oxycodone-Acetamino phen Discontinued 1 TAB PO Q6H April 23, 2020 1:00am July 22, 2022 8:37am Albuterol (Eqv-ProAir HFA) 90 mcg/inh inhalation aerosol (10 sources) Start: 11-18-2022 take 1 dose by inhalation every six hours Albuterol (Eqv-ProAir HFA) 90 mcg/inh inhalation aerosol 2 puff(s), Inhalation, q6hr, 1 EA, Refill(s) 3, [id number], 160, cm, 11/18/22 14:40:00 EDT, Height/Length Dosing, 91.9, kg, 11/18/22 14:40:00 EDT, Weight Dosing Start Date: 11/18/22 Status: Ordered Start: 09-06-2021 take 1 dose by inhal ation every six hours Albuterol (Eqv-ProAir HFA) 90 mcg/inh inhalation aerosol 2 puff(s), Inhalation, q6hr Cough and Congestion, 1 EA, Refill(s) 0, [id number], 160, cm, 09/06/21 16:17:00 EDT, Height/Length Dosing, 90, kg, 09/06/21 16:17:00 EDT, Weight Dosing Start Date: 09/06/21 Status: Ordered BD Insulin Syringe 27G X 1/2 1 ML (20 sources) Start: 04-22-2021 BD Insulin Syr diamond 27G X 1/2 1 ML 1 subcutaneously qd for 90 day(s) Apr, Not-Taking Start: 04-22-2021 Start: 04-22-2021 BD Insulin Syr diamond 27G X 1/2 1 ML 1 subcutaneously qd for 90 day(s) Apr, Active Blood pressure monitor device (8 sources) Start: 11-30-2022 Blood pressure monitor device Blood pressure monitor device, See Instructions, 1 EA, 0, Check blood pressure daily, [id number], Supply, 160, cm, 11/18/22 14:40:00 EDT, Height/Length Dosing, 91.9, kg, 11/18/22 14:40:00 EDT, Weight Dosing Start Date: 11/30/22 Status: Ordered cefdinir 300 mg oral capsule (17 sources) Cephalosporin Antibacterial Start: 04-23-2020 End: 07-22-2022 take 300 mg by mouth every twelve hours Cefdinir Discontinued 300 MG PO Q12H April 23, 2020 1:00am July 22, 2022 8:36am cefTRIAXone (20 sources) Cephalosporin Antibacterial Start: 09-24-2020 Rocephin 500 mg Sep, 500 mg clindamycin 300 mg oral capsule (6 sources) Lincosamide Antibacterial Start: 02-27-2019 End: 02-27-2019 take 1 tablet by mouth twice daily Clindamycin Hcl Discontinued 1 TAB PO Twice daily February 27, 2019 1:00am February 27, 2019 2:51pm doxycycline hyclate 100 mg oral capsule (10 sources) Tetracycline-class Drug Start: 07-21-2021 take 1 capsule by mouth once doxycycline hyclate 100 mg Cap 100 mg = 1 cap(s), Oral, q12hr, Take one capsule by mouth every twelve hours for ten days, # 20 cap(s), Refills(s) 0, Pharmacy: [facility]/pharmacy #[id number], 160, cm, 07/21/21 13:28:00 EDT, Height/Length Dosing, 90.5, kg, 07/21/21 13:28:00 EDT, Weight Dosing Start Date: 07/21/21 Status: Ordered Start: 05-16-2021 End: 05-23-2021 take 1 capsule by mouth twice daily doxycycline hyclate 100 mg Cap 100 mg = 1 cap(s), Oral, BID, X 7 day(s), # 14 cap(s), Refills(s) 0, Pharmacy: [facility]/pharmacy #[id number], 160, cm, 05/16/21 14:44:00 EDT, Height/Length Dosing, 96, kg, 05/16/21 14:44:00 EDT, Weight Dosing Start Date: 05/16/21 Stop Date: 05/23/21 Status: Ordered Start: 02-27-2019 End: 08-02-2019 take 100 mg by mouth twice daily Doxycycline Hyclate Discontinued 100 MG PO Twice daily February 27, 2019 1:00am August 02, 2019 9:04am Handicap placards as directe d (20 sources) Handicap placard s as directed 1 as directed as directed Not-Taking Handicap placard s as directed 1 as directed as directed Active Insulin Aspart U-100 (Novolo g Flexpen U-100 Insulin) 100 unit/mL (3 mL) insulin pen (5 sources) Start: 07-22-2022 End: 06-15-2023 Insulin Aspart U-100 (Novolo g Flexpen U-100 Insulin) 100 unit/mL (3 mL) insulin pen Discontinued 0 .ROUTE .COMPLEX July 22, 2022 12:00am June 15, 2023 2:21pm sliding scale Start: 07-22-2022 Insulin Aspart U-100 (Novolog Flexpen U-100 Insulin) 100 unit/mL (3 mL) insulin pen Active 0 .ROUTE .COMPLEX July 21, 2022 11:00pm sliding scale Start: 07-22-2022 Insulin Aspart U-100 (Novolog Flexpen U-100 Insulin) 100 unit/mL (3 mL) insulin pen Active 0 .ROUTE .COMPLEX July 22, 2022 12:00am sliding scale Insulin Degludec (Tresiba Flextouch U-100) 100 unit/mL (3 mL) Insulin Pen (5 sources) Start: 08-02-2019 End: 07-22-2022 Insulin Degludec (Tresiba Flextouch U-100) 100 unit/mL (3 mL) Insulin Pen Discontinued 24 UNIT SUBCUT Daily August 01, 2019 11:00pm July 22, 2022 7:37am Start: 08-02-2019 End: 07-22-2022 Insulin Degludec (Tresiba Fl extouch U-100) 100 unit/mL (3 mL) Insulin Pen Discontinued 24 UNIT SUBCUT Daily August 02, 2019 12:00am July 22, 2022 8:37am Humalog (3 sources) Insulin Analog Start: 11-16-2022 End: 11-16-2022 HumaLOG Sliding Scale 0-10 U nit(s), Injection-Insulin, SubCutaneous, Start date 11/16/22 7:30:00 AM EDT Start Date: 11/16/22 Stop Date: 11/16/22 Status: Completed Start: 11-15-2022 End: 11-15-2022 HumaLOG Sliding Scale 0-10 U nit(s), Injection-Insulin, SubCutaneous, Start date 11/15/22 4:30:00 PM EDT Start Date: 11/15/22 Stop Date: 11/15/22 Status: Completed Start: 11-15-2022 End: 11-15-2022 HumaLOG Sliding Scale 0-10 U nit(s), Injection-Insulin, SubCutaneous, Start date 11/15/22 11:30:00 AM EDT Start Date: 11/15/22 Stop Date: 11/15/22 Status: Completed 10 ml lidocaine hydrochloride 10 mg/ml injection (1 source) Antiarrhythmic, Amide Local Anesthetic Start: 12-26-2018 End: 12-26-2018 lidocaine PF 1 % injection 1 mL Multivitamin Adult - (20 sources) Start: 04-16-2019 take 1 tablet by mouth once daily Multivitamin Adult - 1 Tablet Orally daily for 30 day(s) Apr, Not-Taking Start: 04-16-2019 take 1 tablet by chloe th once daily Start: 04-16-2019 take 1 tablet by chloe th once daily Multivitamin Adult - 1 Tablet Orally daily for 30 day(s) Apr, Active naproxen 500 mg oral tablet (20 sources) Nonsteroidal Anti-inflammatory Drug Start: 01-19-2021 take 1 tablet by mouth twice daily naproxen 500 mg Tab 500 mg = 1 tab(s), Oral, BID, Take one tab by mouth two times a day, # 14 tab(s), Refills(s) 0, Pharmacy: [facility]/pharmacy #[id number], 160, cm, 01/19/21 12:42:00 EST, Height/Length Dosing, 96, kg, 01/19/21 12:42:00 EST, Weight Dosing Start Date: 01/19/21 Status: Ordered take 1 tablet by chloe th every twelve hours at mealtime as needed Naproxen 500 MG 1 tablet with food or milk as needed Orally every 12 hrs ER Active [place] for insulin glargine (1 source) Start: 01-03-2024 [place] for insulin glargine [place] for insulin glargine, See Instructions, 100 EA, 5, [place] for Lantus, [facility]/pharmacy #[id number], Supply, 161, cm, 09/29/23 15:55:00 EDT, Height/Length Dosing, 88.3, kg, 09/29/23 15:55:00 EDT, Weight Dosing Start Date: 01/03/24 Status: Ordered 2 ml ondansetron 2 mg/ml injection (1 source) Serotonin-3 Receptor Antagonist Start: 12-26-2018 End: 12-26-2018 ondansetron (ZOFRAN) injection 4 mg 1.5 ml regular insulin, human 100 unt/ml prefilled syringe (1 source) Insulin Start: 12-26-2018 End: 12-26-2018 insulin regular (HUMULIN R;NOVOLIN R) injection 15 Units traMADol hydrochloride 50 mg oral tablet (6 sources) Opioid Agonist Start: 08-30-2018 End: 02-27-2019 take 0.5-1 tablets by mouth every six hours as needed for pain Tramadol (Ultram) 50 mg tablet Discontinued 50 MG PO Q6H 20 7 August 30, 2018 12:00am February 27, 2019 2:34pm 1/2 - 1 tab po q 6 hours prn pain Problems Active Problems Problem Classification Problem Date Documented Da te Episodic/Chronic Acute cerebrovascular disease (3 sources) Cerebral infarction; Translations: [Other cerebral infarction due to occlusion or stenosis of small artery] Onset: 09-29-2023 Chronic Acute cerebrovascular disease (2 sources) Acute cerebrovascular disease 09-29-2023 Asthma (10 sources) Asthma; Translations: [Unspecified asthma, uncomplicated] Onset: 11-14-2022 Chronic Calculus of urinary tract (20 sources) Kidney stone; Translations: [Calculus of kidney] Onset: 12-18-2020 Resolved: 12-18-2020 Episodic Cardiac dysrhythmias (4 sources) Irregular heart beat; Translations: [Cardiac arrhythmia, unspecified] Onset: 10-09-2023 10-09-2023 Chronic Chronic obstructive pulmonary disease and bronchiectasis (1 source) Acute exacerbation of chronic obstructive airways disease; Translations: [Chronic obstructive pulmonary disease with (acute) exacerbation] Onset: 11-14-2022 Chronic Chronic ulcer of skin (19 sources) Ulcer; Translations: [Ulcerative lesion] Onset: 01-31-2023 Resolved: 01-31-2023 02-27-2019 Chronic Diabetes mellitus without complication (17 sources) Diabetes mellitus; Translations: [Type 2 diabetes mellitus without complications] Onset: 11-15-2022 04-29-2020 Chronic Comment on above: Linked per outpatien t CDI policy. Fluid and electrolyte disorders (2 sources) Hypokalemia; Translations: [Hypokalemia] Onset: 11-14-2022 Episodic Gastritis and duodenitis (20 sources) Chronic gastritis; Translations: [Unspecified chronic gastritis without bleeding] Chronic Hemorrhoids (15 sources) Hemorrhoids 07-12-2017 Episodic Immunizations and screening for infectious disease (1 source) Vaccination given; Translations: [Encounter for immunization] Onset: 03-28-2023 Episodic Miscellaneous mental health disorders (5 sources) Chronic insomnia; Translations: [Psychophysiologic insomnia] Chronic Open wounds of extremities (1 source) Laceration of great toe; Translations: [Laceration without foreign body of left great toe without damage to nail, initial encounter] Onset: 09-06-2021 Episodic Other aftercare (1 source) half-way current use of non-steroidal anti-inflammatory drug; Translations: [half-way (current) use of non-steroidal anti-inflammatories (NSAID)] Episodic Other aftercare (2 sources) Long-term current use of drug therapy; Translations: [Other dedicated intermodal truck driver (current) drug therapy] Onset: 11-15-2022 Episodic Other aftercare (2 sources) Encounter for therapeutic drug level monitoring Onset: 04-09-2021 Resolved: 04-09-2021 Episodic Other aftercare (2 sources) Follow-up status; Translations: [Encounter for follow-up examination after completed treatment for conditions other than malignant neoplasm] Onset: 09-29-2023 Episodic Other gastrointestinal disorders (20 sources) Irritable bowel syndrome; Translations: [Mixed irritable bowel syndrome] Chronic Other gastrointestinal disorders (2 sources) Mixed irritable bowel syndrome Onset: 10-08-2021 Resolved: 10-08-2021 Chronic Other gastrointestinal disorders (1 source) Other dysphagia Episodic Other gastrointestinal disorders (4 sources) Diarrhea; Translations: [Diarrhea, unspecified] Onset: 08-17-2023 Episodic Other hereditary and degenerative nervous system conditions (3 sources) Restless legs; Translations: [Restless legs syndrome] 08-09-2023 Chronic Other hereditary and degenerative nervous system conditions (2 sources) Restless legs syndrome; Translations: [Restless legs syndrome (RLS)] Chronic Other nervous system disorders (3 sources) Sleep-wake schedule disorder, delayed phase type; Translations: [Circadian rhythm sleep disorder, delayed sleep phase type] 08-09-2023 Chronic Other nervous system disorders (2 sources) Circadian rhythm sleep disorder, delayed sleep phase type; Translations: [Circadian rhythm sleep disorder, delayed sleep phase type] Chronic Other nervous system disorders (2 sources) Postoperative pain ; Translations: [Other acute postprocedural pain] 06-29-2023 Episodic Other nervous system disorders (1 source) Anesthesia of skin; Translations: [Anesthesia of skin] Onset: 09-22-2023 Episodic Other nutritional; endocrine; and metabolic disorders (8 sources) Obesity; Translations: [Obesity, unspecified] Onset: 03-28-2023 04-19-2019 Chronic Other nutritional; endocrine; and metabolic disorders (1 source) Hypocalcemia; Translations: [Hypocalcemia] Onset: 11-14-2022 Chronic Other nutritional; endocrine; and metabolic disorders (4 sources) Obese class I; Translations: [Body mass index (BMI) 34.0-34.9, adult] Onset: 02-17-2023 Chronic Other nutritional; endocrine; and metabolic disorders (2 sources) Obesity caused by energy imbalance 08-31-2023 Chronic Other nutritional; endocrine; and metabolic disorders (1 source) Body mass index (BMI) 33.0-33.9, adult; Translations: [Body Mass Index 33.0-33.9, adult] 08-09-2023 Chronic Other screening for suspected conditions (not mental disorders or infectious disease) (1 source) Encounter for screening for malignant neoplasm of colon Episodic Other upper respiratory disease (1 source) Chronic rhinitis; Translations: [Chronic rhinitis] 03-24-2023 Chronic Other upper respiratory disease (1 source) Bronchospasm; Translations: [Acute bronchospasm] Onset: 09-06-2021 Episodic Other upper respiratory disease (1 source) Hypertrophy of nasal turbinates; Translations: [Hypertrophy of nasal turbinates] 03-24-2023 Episodic Other upper respiratory disease (1 source) Deviated nasal septum; Translations: [Deviated nasal septum] 03-24-2023 Episodic Pneumonia (except that caused by tuberculosis or sexually transmitted disease) (2 sources) Pneumonia; Translations: [Pneumonia, unspecified organism] Onset: 07-21-2021 Episodic Rehabilitation care; fitting of prostheses; and adjustment of devices (1 source) Encounter for adjustment and management of other implanted nervous system device; Translations: [Fitting and adjustment of other devices related to nervous system and special senses] 08-09-2023 Episodic Residual codes; unclassified (20 sources) Obstructive sleep apnea syndrome; Translations: [Obstructive sleep apnea (adult) (pediatric)] Onset: 10-09-2023 03-24-2023 Chronic Residual codes; unclassified (2 sources) Sleep apnea; Translations: [Sleep apnea, unspecified] Chronic Residual codes; unclassified (3 sources) Obstructive sleep apnea (adult) (pediatric); Translations: [Obstructive sleep apnea (adult)(pediatric)] Onset: 06-29-2023 Chronic Residual codes; unclassified (2 sources) Localized edema Episodic Residual codes; unclassified (1 source) Other specified health status Episodic Residual codes; unclassified (1 source) Tobacco user; Translations: [Tobacco use] 03-24-2023 Episodic Residual codes; unclassified (1 source) Device in situ; Translations: [Presence of neurostimulator] 08-09-2023 Episodic Residual codes; unclassified (1 source) Presence of neurostimulator; Translations: [Other postprocedural status] 08-09-2023 Episodic Screening and history of mental health and substance abuse codes (6 sources) H/O: Disorder; Translations: [Personal history of nicotine dependence] Onset: 03-28-2023 Episodic Spondylosis; intervertebral disc disorders; other back problems (20 sources) Acute back pain with sciatica; Translations: [Lumbago with sciatica, right side] Onset: 01-21-2021 Resolved: 01-21-2021 Episodic Substance-related disorders (20 sources) Smoker; Translations: [Nicotine dependence] Onset: 08-06-2021 Resolved: 03-24-2023 07-12-2017 Chronic Comment on above: Added secondary to d ocumentation in Social History. Superficial injury; contusion (1 source) Superficial foreign body of right ear, initial encounter Episodic Thyroid disorders (2 sources) Nontoxic multinodular goiter; Translations: [Thyrotoxicosis, unspecified without thyrotoxic crisis or storm] Onset: 09-22-2023 Chronic Transient cerebral ischemia (1 source) Transient cerebral ischemic attack, unspecified; Translations: [Transient cerebral ischemic attack, unspecified] Onset: 09-22-2023 Chronic Unclassified (1 source) Facial Numbness Onset: 09-22-2023 Unclassified (1 source) Facial Numbness, Arm Numbness Onset: 09-22-2023 Viral infection (20 sources) Plantar wart of left foot; Translations: [Plantar wart] 11-18-2022 Episodic Past or Other Problems Problem Classification Problem Date Documented Da te Episodic/Chronic Abdominal pain (20 sources) Flank pain; Translations: [Unspecified abdominal pain] Onset: 3 Resolved: 3 01-16-2021 Episodic Alcohol-related disorders (16 sources) Chronic alcoholism in remission; Translations: [Alcohol dependence, in remission] Onset: 3 Resolved: 4 Chronic Comment on above: Added per Dr. Carrie joseph query response, per outpatient [facility] policy. Anxiety disorders (20 sources) Anxiety; Translations: [Other specified anxiety disorders] Onset: 2 Resolved: 3 Chronic Coma; stupor; and brain damage (4 sources) Daytime somnolence; Translations: [Somnolence] Onset: 4 10-09-2023 Episodic Diabetes mellitus with complications (20 sources) Retinopathy due to diabetes mellitus; Translations: [Polyneuropathy due to diabetes mellitus] Onset: 1 Resolved: 3 01-16-2021 Chronic Disorders of lipid metabolism (20 sources) Mixed hyperlipidemia; Translations: [Mixed hyperlipidemia] Onset: 2 Resolved: 3 Chronic Esophageal disorders (20 sources) Gastroesophageal reflux disease; Translations: [Gastroesophageal reflux disease without esophagitis] Onset: 3 Resolved: 3 01-16-2021 Chronic Essential hypertension (20 sources) Essential hypertension; Translations: [Essential (primary) hypertension] Onset: 7 Resolved: 3 Chronic Infective arthritis and osteomyelitis (except that caused by tuberculosis or sexually transmitted disease) (7 sources) Acute osteomyelitis of ankle and/or foot; Translations: [Other acute osteomyelitis, left ankle and foot] Onset: 3 Resolved: 3 01-31-2023 Chronic Mood disorders (20 sources) Depression; Translations: [Depressive disorder] Onset: 3 Resolved: 4 07-12-2017 Chronic Comment on above: Added per Dr. Carrie joseph query response, per outpatient [facility] policy. Noninfectious gastroenteritis (1 source) Noninfective gastroenteritis and colitis, unspecified Onset: 2 Resolved: 2 Episodic Osteoarthritis (20 sources) Arthritis; Translations: [Osteoarthritis] Onset: 3 Resolved: 3 01-16-2021 Chronic Other acquired deformities (7 sources) Contracture of joint of right ankle; Translations: [Contracture, right ankle] Onset: 3 Resolved: 3 01-31-2023 Chronic Other acquired deformities (7 sources) Deformity of metatarsal; Translations: [Unspecified acquired deformity of unspecified lower leg] Onset: 3 Resolved: 3 01-31-2023 Episodic Other aftercare (15 sources) Post-discharge follow-up; Translations: [Encounter for follow-up examination after completed treatment for conditions other than malignant neoplasm] Onset: 3 Resolved: 3 11-18-2022 Episodic Other and unspecified benign neoplasm (1 source) Benign lipomatous neoplasm of skin and subcutaneous tissue of left leg Onset: 1 Resolved: 1 Episodic Other connective tissue disease (7 sources) Biceps tendinitis; Translations: [Bicipital tendinitis, unspecified shoulder] Onset: 1 Resolved: 3 01-31-2023 Episodic Other connective tissue disease (7 sources) Full thickness rotator cuff tear; Translations: [Complete rotator cuff tear or rupture of unspecified shoulder, not specified as traumatic] Onset: 6 Resolved: 3 01-31-2023 Episodic Other connective tissue disease (7 sources) Impingement syndrome of shoulder region; Translations: [Impingement syndrome of unspecified shoulder] Onset: 2 Resolved: 3 01-31-2023 Episodic Other connective tissue disease (7 sources) Lateral epicondylitis of left humerus; Translations: [Lateral epicondylitis, left elbow] Onset: 9 Resolved: 3 01-31-2023 Episodic Other diseases of kidney and ureters (20 sources) Caliectasis; Translations: [Other specified disorders of kidney and ureter] Onset: 3 Resolved: 3 01-16-2021 Chronic Other gastrointestinal disorders (7 sources) Finding of abdomen; Translations: [Epigastric swelling, mass or lump] Onset: 3 Resolved: 3 01-31-2023 Episodic Other nervous system disorders (7 sources) Carpal tunnel syndrome of left wrist; Translations: [Carpal tunnel syndrome, left upper limb] Onset: 1 Resolved: 3 01-31-2023 Chronic Other nervous system disorders (4 sources) Spasmodic movement; Translations: [Fasciculation] Onset: 4 10-09-2023 Episodic Other nervous system disorders (2 sources) Numbness and tingling sensation of skin; Translations: [Anesthesia of skin] 10-13-2023 Episodic Other nervous system disorders (2 sources) Sensory disorder; Translations: [Unspecified disturbances of skin sensation] 10-13-2023 Episodic Other non-traumatic joint disorders (7 sources) Loose body in joint of left shoulder region; Translations: [Loose body in left shoulder] Onset: 1 Resolved: 3 01-31-2023 Chronic Other non-traumatic joint disorders (7 sources) Shoulder joint painful on movement; Translations: [Pain in right shoulder] Onset: 8 Resolved: 3 01-31-2023 Episodic Other nutritional; endocrine; and metabolic disorders (20 sources) Body mass index 30+ - obesity; Translations: [Obesity, unspecified] Onset: 7 Resolved: 3 01-31-2023 Chronic Other nutritional; endocrine; and metabolic disorders (18 sources) Morbid obesity; Translations: [Morbid (severe) obesity due to excess calories] Onset: 3 Resolved: 3 08-19-2022 Chronic Other skin disorders (12 sources) Epidermoid cyst; Translations: [Epidermal cyst] Onset: 4 Resolved: 4 04-29-2020 Episodic Other upper respiratory infections (1 source) Acute frontal sinusitis, unspecified Onset: 2 Resolved: 2 Episodic Sprains and strains (7 sources) Detachment of the glenoid labrum and/or capsule of the shoulder joint; Translations: [Other sprain of unspecified shoulder joint, initial encounter] Onset: 1 Resolved: 3 01-31-2023 Episodic Unclassified (1 source) Exposure to COVID-19 virus Z20.822 Onset: 2 Resolved: 2 Results Test Name Value Interpretation Reference Range Facil ity US THYROIDon 10-29-2023 US THYROID US THYROID CLINICAL INFORMATION: Multiple thyroid nodules. TECHNIQUE: Real time sonography of the thyroid gland performed. COMPARISON: No relevant prior studies available. FINDINGS: Right thyroid lobe measures 4.5 x 1.9 x 1.9 cm. Left thyroid lobe measures 4.2 x 1.5 a 0.3 cm. 2 mm cyst. Cystic right interpolar nodule, 1.4 cm, TR 4.. IMPRESSION: Right interpolar thyroid nodule, TR4 . Consider annual follow-up. ACR TI-RADS recommendations: TR5 (greater than or equal to 7 points) - FNA if greater than or equal to 1cm, follow-up ultrasound if nodule is 0.5 - 0.9 cm every year for 5 years. TR4 (4 - 6 points) - FNA if greater than or equal to 1.5 cm, follow-up ultrasound if nodule is 1 -1.4 cm at 1, 2, 3 and 5 years. TR3 (3 points) - FNA if greater than or equal to 2.5 cm, follow-up ultrasound if nodule is 1.5 -2.4 cm at 1, 3 and 5 years. TR2 (2 points) & TR1 (0 points) - No FNA or follow-up. 209 Finalized by Jd De Anda MD on 10/29/2023 3:12 PM [facility] 10-06-[address] [place] [address] Case Information Case Priority: None Programs: -- Referral Source: Group Care Worker Referral Reason: Care coordination Case Type: Transition Care Management Risk Score: -- Case Status: Enrolled (September 29, 2023) Date Assigned: September 26, 2023 Assigned By: Montserrat Sheppard Date Enrolled: September 29, 2023 Assigned Primary Personnel: Montserrat Sheppard Assigned Secondary Personnel: -- Case Physician: Andreina Thao MD Problems Ongoing Alcoholism in remission Anxiety and depression Arthritis Basal ganglia stroke BMI 34.0-34.9,adult Chronic GERD Cocaine abuse in remission Diarrhea Dilated renal pelvis DR (diabetic retinopathy) Flank pain HLD (hyperlipidemia) Hospital discharge follow-up HTN (hypertension) Low back pain Major depressive disorder, recurrent Obesity due to excess calories Personal history of nicotine dependence Reactive airway disease Rhinovirus infection Smoker Type 2 diabetes mellitus with hyperlipidemia Historical Depression Hemorrhoids Morbid obesity due to excess calories Procedure/Surgica l History Cataract surgery (08/02/2019), Tubal ligation (03/04/1999), Carpal tunnel, Hernia, Shoulder. Home Medications Albuterol (Eqv-ProAir HFA) 90 mcg/inh inhalation aerosol, 2 puff(s), Inhalation, q6hr, 3 refills aripiprazole 10 mg Tab, 10 mg= 1 tab(s), Oral, Daily Blood pressure monitor device, See Instructions busPIRone 10 mg Tab, 10 mg= 1 tab(s), Oral, BID CeleXA 40 mg Tab, 40 mg= 1 tab(s), Oral, Daily cloNIDine 0.1 mg tab, 0.1 mg= 1 tab(s), Oral, Daily dicyclomine 20 mg Tab, 20 mg= 1 tab(s), Oral, TID, 3 refills fluticasone propionate, 50 mcg, Inhalation, Daily furosemide 20 mg Tab, 20 mg= 1 tab(s), Oral, Daily, 3 refills gabapentin 600 mg Tab, 600 mg= 1 tab(s), Oral, Daily, 1 refills glimepiride 2 mg Tab, 4 mg= 2 tab(s), Oral, BID, 2 refills hydrocortisone Top 2.5% Crm, 1 luci, Topical, BID, 1 refills hydrOXYzine hydrochloride 50 mg oral tablet ibuprofen 800 mg Tab, 800 mg= 1 tab(s), Oral, TID Invokana 300 mg oral tablet, 300 mg= 1 tab(s), Oral, Daily, 3 refills Januvia 100 mg Tab, 100 mg= 1 tab(s), Oral, Daily, 3 refills lisinopril 2.5 mg Tab, 2.5 mg= 1 tab(s), Oral, Daily multivitamin, See Instructions mupirocin Top 2% Crm, See Instructions omeprazole 40 mg Cap-DR, 40 mg= 1 cap(s), Oral, BID, 11 refills Orajel 20% mucous membrane gel, See Instructions, 1 refills Plavix, See Instructions Potassium Chloride (Eqv-K-Tab) 10 mEq oral tablet, extended release, 10 mEq= 1 tab(s), Oral, Daily, 1 refills rosuvastatin 40 mg Tab, 40 mg= 1 tab(s), Oral, Daily, 3 refills sensor, See Instructions, 3 refills traZODONE 50 mg Tab, 50 mg= 1 tab(s), Oral, Once a day (at bedtime) Allergies No Known Allergies Social History Alcohol - Denies Alcohol Use, 08/19/2022 Past, Liquor, Several times per day, Previous treatment: Alcoholics Anonymous. Alcohol use interferes with work or home: Yes. Drinks more than intended: Yes. Others hurt by drinking: Yes. Ready to change: Yes., 03/28/2023 Substance Abuse Past, Cocaine, Daily, Previous treatment: None., 08/19/2022 Tobacco - High Risk, 07/12/2017 10 or more cigarettes (1/2 pack or more)/day in last 30 days Tobacco Use:. Current vaping or e-cigarette use Smokeless Tobacco Use:. Cigarettes, Vaping, Ready to change: No. Yes, 09/29/2023 Family History Anxiety: Mother. : Mother. Depression: Mother. Diabetes mellitus type 2: Mother and Father. Hyperlipidemia: Father. Stroke: Mother. Screenings and Assessments 09/29/23 07:09:00 Result Name Value Comment Phone Call Monitoring Consent Agreed to continue call Phone Verification Patient Information Full name, street address and date of verified CM Program Enrollment Provides verbal consent for enrollment Goals and Interventions Care Plan Progress Note Called patient for continued follow-up for transitional care management. Patient reports she is doing good at this time. Patient states numbness to left face and left arm are going away ; denies pain. Patient c/o dizziness with position changes and will discuss with Neurologist at her appointment next ; cannot recall name of Neurologist she is seeing. Patient states her appointment with Plate Worker is next month. Patient relays eating and drinking without issues or concerns - endorses diarrhea which she states is not a new symptom; denies nausea/vomiting. Denies questions or concerns today for PCP. Informed patient that another outreach call would be made to her next week of which she is agreeable to. Communication Events Date: October 06, 2023 Method: Phone call Type: Outbound Duration (min): 5 Outcome: Case discussion Contact Type: retail and promotions coordinator Contact Name: Montserrat Sheppard Notes: TCM #2 - Contact made with patient regarding status update. See TCM #2. Created By: Montserrat Sheppard (more content not included)... [facility] Family Medicine Office/Clini c Noteon 09-29-2023 Family Medicine Office/Clinic Note Family Medicine Office/Clinic Note Chief Complaint Hospital Follow up W/ TCM HPI Staff Patient here for hospital follow up with TCM after having a stroke. Admission: 09/22/23 Discharge: 09/24/23 Discharge paperwork scanned into chart. Still having some numbness and tingling in face and hand. Also states they found a lump on her Thyroid - has appt scheduled for next month for follow up on this. Needs Gabapentin, Invokana, and Dicyclomine refilled. History of Present Illness The patient is a 53-year-old female who presents for a hospital discharge follow-up. She was admitted to [facility] with numbness on the left side of her face and left upper extremity. MRI of the brain revealed a small right basal ganglia ischemic stroke. CT brain was negative, and CT of the carotid and head was unremarkable but showed multiple thyroid nodules and moderate tonsillar hypertrophy, most prominent in the lingual tonsils. An echocardiogram with bubble study was negative. She was started on Plavix and aspirin. She continues to experience numbness and tingling, which she expects to persist for some time before resolving. She also reports some weakness. She has a family history of stroke in her father. Her A1c was elevated at 9.2 during admission and decreased slightly to 9.1 during her hospital stay. She was started on a statin for hyperlipidemia and has been prescribed clopidogrel and atorvastatin. She was previously on rosuvastatin for cholesterol management, but this was changed to atorvastatin during her hospital stay. She is unsure of the reason for the change and would prefer to return to rosuvastatin. She does not currently have any refills for rosuvastatin. She has discontinued Rybelsus due to diarrhea and is seeking an alternative medication. She requires refills for Invokana, gabapentin, dicyclomine, and glimepiride. She has a virtual appointment scheduled with an multi craft maintenance technician next month. She did have multiple thyroid nodules on CT angio and was recommended to get an outpatient ultrasound of the thyroid and follow up with endocrinology. She does not have an appointment with a neurologist. She stopped taking albuterol and metformin. Urine UDS was negative. Additionally, she had a bad burn that blistered up and has been applying antibiotic ointment to it. Review of Systems PHQ Score Initial Depression Screen Score: 0 SCORE Negative except as above Physical Exam Vitals & Measurements HR: 89(Peripheral) RR: 18 BP: 116/80 SpO2: 99% HT: 63 in HT: 161 cm WT: 88.3 kg WT: 194.26 lb BMI: 34.07 Gen: No acute distress, sitting comfortably in chair Cardio: RRR, no murmur/rubs/honeycutt ps Resp: CTAB, no wheezing/rales/rh onchi Psych: Pleasant, normal mood, normal affect Neuro: CN II-XII intact, normal gait Assessment/Plan 1. Hospital discharge follow-up (Z09: Encounter for follow-up examination after completed treatment for conditions other than malignant neoplasm) symptoms improving cont aspirin and plavix patient already on rosuvastatin 40 mg daily, unknown why hospital changed her to atorvastatin 40 mg daily she is to finish the atorvastatin and restart the rosuvastatin 40 mg daily discussed low fat diet discussed increasing physical activity keep appt with endocrinology 2. Basal ganglia stroke (I63.81: Other cerebral infarction due to occlusion or stenosis of small artery) symptoms improving cont aspirin and plavix patient already on rosuvastatin 40 mg daily, unknown why hospital changed her to atorvastatin 40 mg daily she is to finish the atorvastatin and restart the rosuvastatin 40 mg daily discussed low fat diet discussed increasing physical activity referral to neurology placed today Ordered: [facility] External Ambulatory Referral 3. Obesity due to excess calories (E66.09: Other obesity due to excess calories) increase whole foods, decrease processed foods exercise at least 2.5 hours weekly 4. BMI 34.0-34.9,adult (Z68.34: Body mass index [BMI] 34.0-34.9, adult) The standard range for ages 18 and older is >=18.5 and < 25 kg/m2. Your BMI today was above this range, this falls in the overweight to obese category and there are medical benefits to weight loss. We can offer counselling, referral, and/or medical support in addressing this problem. Your BMI and weight management will be followed at subsequent visits. 5. Smoker (F17.200: Nicotine dependence, unspecified, uncomplicated) declines quitting at this time Orders: canagliflozin, 300 mg = 1 tab(s), Oral, Daily, # 90 tab(s), Refills(s) 3, Pharmacy: [facility]/pharmacy #[id number], 161, cm, 08/15/24 15:55:00 EDT, Height/Length Dosing, 88.3, kg, 09/29/23 15:55:00 EDT, Weight Dosing dicyclomine, 20 mg = 1 tab(s), Oral, TID, # 90 tab(s), Refills(s) 3, Pharmacy: [facility]/pharmacy #[id number], 161, cm, 09/29/23 15:55:00 EDT, Height/Length Dosing, 88.3, kg, 09/29/23 15:55:00 EDT, Weight Dosing gabapentin, 600 mg = 1 tab(s), Oral, Daily, # 90 tab(s), Refills(s) 1, Pharmacy: [facility] (more content not included)... Normal [facility] Comment on above: Result Comment: Elec tronically Signed By: Andreina Thao MD\.br\Date and Time Signed: 09/29/23 16:37 EDT [facility] 09-27-19 [facility] Case Information Case Priority: None Programs: -- Referral Source: Group Care Worker Referral Reason: Care coordination Case Type: Transition Care Management Risk Score: -- Case Status: Pending Enrollment (September 26, 2023) Date Assigned: September 26, 2023 Assigned By: Montserrat Sheppard Date Enrolled: -- Assigned Primary Personnel: Montserrat Sheppard Assigned Secondary Personnel: -- Case Physician: Andreina Thao MD Problems Ongoing Alcoholism in remission Anxiety and depression Arthritis Chronic GERD Cocaine abuse in remission Diarrhea Dilated renal pelvis DR (diabetic retinopathy) Flank pain HLD (hyperlipidemia) HTN (hypertension) Low back pain Major depressive disorder, recurrent Obesity due to excess calories Personal history of nicotine dependence Reactive airway disease Rhinovirus infection Smoker Type 2 diabetes mellitus with hyperlipidemia Historical Depression Hemorrhoids Morbid obesity due to excess calories Procedure/Surgica l History Cataract surgery (08/02/2019), Tubal ligation (03/04/1999), Carpal tunnel, Hernia, Shoulder. Home Medications Albuterol (Eqv-ProAir HFA) 90 mcg/inh inhalation aerosol, 2 puff(s), Inhalation, q6hr, 3 refills aripiprazole 10 mg Tab, 10 mg= 1 tab(s), Oral, Daily Blood pressure monitor device, See Instructions busPIRone 10 mg Tab, 10 mg= 1 tab(s), Oral, BID CeleXA 40 mg Tab, 40 mg= 1 tab(s), Oral, Daily cloNIDine 0.1 mg tab, 0.1 mg= 1 tab(s), Oral, Daily dicyclomine 20 mg Tab, 20 mg= 1 tab(s), Oral, TID fluticasone propionate, 50 mcg, Inhalation, Daily furosemide 20 mg Tab, 20 mg= 1 tab(s), Oral, Daily, 3 refills gabapentin 600 mg Tab, 600 mg= 1 tab(s), Oral, Daily glimepiride 2 mg Tab, 4 mg= 2 tab(s), Oral, BID, 2 refills hydrocortisone Top 2.5% Crm, 1 luci, Topical, BID, 1 refills hydrOXYzine hydrochloride 50 mg oral tablet ibuprofen 800 mg Tab, 800 mg= 1 tab(s), Oral, TID Invokana 300 mg oral tablet, 300 mg= 1 tab(s), Oral, Daily, 3 refills Januvia 50 mg Tab, 50 mg= 1 tab(s), Oral, Daily, 1 refills lisinopril 2.5 mg Tab, 2.5 mg= 1 tab(s), Oral, Daily multivitamin, See Instructions mupirocin Top 2% Crm, See Instructions omeprazole 40 mg Cap-DR, 40 mg= 1 cap(s), Oral, BID, 11 refills Orajel 20% mucous membrane gel, See Instructions, 1 refills Potassium Chloride (Eqv-K-Tab) 10 mEq oral tablet, extended release, 10 mEq= 1 tab(s), Oral, Daily, 1 refills rosuvastatin 40 mg Tab, 40 mg= 1 tab(s), Oral, Daily Rybelsus 14 mg oral tablet, 14 mg= 1 tab(s), Oral, Daily, 3 refills sensor, See Instructions, 3 refills traZODONE 50 mg Tab, 50 mg= 1 tab(s), Oral, Once a day (at bedtime) Allergies No Known Allergies Social History Alcohol - Denies Alcohol Use, 08/19/2022 Past, Liquor, Several times per day, Previous treatment: Alcoholics Anonymous. Alcohol use interferes with work or home: Yes. Drinks more than intended: Yes. Others hurt by drinking: Yes. Ready to change: Yes., 03/28/2023 Substance Abuse Past, Cocaine, Daily, Previous treatment: None., 08/19/2022 Tobacco - High Risk, 07/12/2017 10 or more cigarettes (1/2 pack or more)/day in last 30 days Tobacco Use:. Current vaping or e-cigarette use Smokeless Tobacco Use:. Cigarettes, Vaping, Ready to change: No. Yes, 08/17/2023 Family History Anxiety: Mother. : Mother. Depression: Mother. Diabetes mellitus type 2: Mother and Father. Hyperlipidemia: Father. Stroke: Mother. Screenings and Assessments No screenings and assessments have been documented. Goals and Interventions Care Plan Progress Note Admit Date: 09/22/2023 [facility] Date of Discharge: 09/24/2023 Follow-up appointment scheduled? Yes, with Dr. Andreina Thao on 09/29/2023 at 4pm. Did you understand your discharge instructions? Yes Are you able to follow them? Yes Did you receive new medications? Yes - Atorvastatin 40mg nightly, Plavix 75mg, one tablet, daily (morning) for 21 days. Have you filled the Rx's? Yes Are you taking them as prescribed? Yes Are you having difficulty eating or swallowing your pills? No Are you having any stomach upset, diarrhea or constipation? No How are you sleeping? Patient denies issues with sleep. Are you having any pain? Patient denies pain. Do you have everything you need at home to care for yourself? Yes Do you have Home Health? No Called patient for initial call for Transitional Care Management Program. No risk score available to review. Patient hospitalized at [facility] 09/22/2023 - 09/24/2023. Reviewed d/c instructions and dx of numbness. Unable to reconcile medications with patient during call. Asked patient to bring in a list of her current medications to upcoming PCP appointment of which she states she will do. Added new medications to list. Reviewed purpose and side effects of new medications with patient. Patient reports feeling okay and is still ex (more content not included)... Normal [facility] CBC AND AUTO DIFFon 09-24-19 ABSOLUTE BASOPHIL 0.0 X10E9/L Normal 0.0-0.2 [facility] Comment on above: Performed By: #### C BCA, CMP ####[facility] ([id number])[address] [place] [address] 05858 ABSOLUTE NEUTROPHIL 3.6 X10E9/L Normal 1.5-6.6 [facility] Comment on above: Performed By: #### C BCA, CMP ####[facility] ([id number])[address] [place] [address] 77175 Basophils/100 WBC (Bld) 0.5 % Normal [facility] Comment on above: Performed By: #### C BCA, CMP ####[facility] ([id number])[address] [place] [address] 20926 Eosinophils (Bld) [#/Vol] 0.2 10*3/uL Normal 0.0-0.4 [facility] Comment on above: Performed By: #### C BCA, CMP ####[facility] ([id number])[address] [place] [address] 54069 Eosinophils/100 WBC (Bld) 3.0 % Normal [facility] Comment on above: Performed By: #### C BCA, CMP ####[facility] ([id number])[address] [place] [address] 84126 Erythrocyte distribution width (RBC) [Ratio] 14.3 % Normal 11.5-15.0 [facility] Comment on above: Performed By: #### C BCA, CMP ####[facility] ([id number])[address] [place] [address] 06201 Hematocrit (Bld) [Volume fraction] 37.1 % Normal 35-47 [facility] Comment on above: Performed By: #### C BCA, CMP ####[facility] ([id number])[address] [place] [address] 42029 Hemoglobin (Bld) [Mass/Vol] 12.7 g/dL Normal 11.7-15.5 [facility] Comment on above: Performed By: #### C BCA, CMP ####[facility] ([id number])[address] [place] [address] 10125 Lymphocytes (Bld) [#/Vol] 2.9 10*3/uL Normal 1.0-3.5 [facility] Comment on above: Performed By: #### C BCA, CMP ####[facility] ([id number])[address] [place] [address] 37244 Lymphocytes/100 WBC (Bld) 39.8 % Normal [facility] Comment on above: Performed By: #### C MARISSA, CMP ####[facility] ([id number])[address] [place] [address] 53059 MCH (RBC) [Entitic mass] 29.9 pg Normal 27-34 [facility] Comment on above: Performed By: #### C MARISSA, CMP ####[facility] ([id number])[address] [place] [address] 89306 MCHC (RBC) [Mass/Vol] 34.1 g/dL Normal 32-36 [facility] Comment on above: Performed By: #### C BCA, CMP ####[facility] ([id number])[address] [place] [address] 05920 MCV (RBC) [Entitic vol] 88 fL Normal 80-100 [facility] Comment on above: Performed By: #### C BCA, CMP ####[facility] ([id number])[address] [place] [address] 20904 Monocytes (Bld) [#/Vol] 0.5 10*3/uL Normal 0-0.9 [facility] Comment on above: Performed By: #### C BCA, CMP ####[facility] ([id number])[address] [place] [address] 11516 Monocytes/100 WBC (Bld) 6.4 % Normal [facility] Comment on above: Performed By: #### C MARISSA, CMP ####[facility] ([id number])[address] [place] [address] 24391 Neutrophils/100 WBC (Bld) 50.3 % Normal [facility] Comment on above: Performed By: #### C MARISSA, CMP ####[facility] ([id number])[address] [place] [address] 71690 Platelet mean volume (Bld) [Entitic vol] 8.8 fL Normal 7-12 [facility] Comment on above: Performed By: #### C MARISSA, CMP ####[facility] ([id number])[address] [place] [address] 51776 Platelets (Bld) [#/Vol] 221 10*3/uL Normal 150-450 [facility] Comment on above: Performed By: #### C MARISSA, CMP ####[facility] ([id number])[address] [place] [address] 05331 RBC COUNT 4.25 X10E12/L Normal 3.80-5.20 [facility] Comment on above: Performed By: #### C MARISSA, CMP ####[facility] ([id number])[address] [place] [address] 58109 WBC (Bld) [#/Vol] 7.2 10*3/uL Normal 4.0-11.0 [facility] Comment on above: Performed By: #### C MARISSA, CMP ####[facility] ([id number])[address] [place] [address] [place] [address] COMPREHENSIVE METABOLIC PANE Pineda 09-24-2023 Albumin [Mass/Vol] 3.5 g/dL Normal 3.2-5.3 [facility] Comment on above: Performed By: #### C BCA, CMP ####[facility] ([id number])[address] [place] [address] [place] [address] ALP [Catalytic activity/Vol] 59 U/L Normal 39-130 [facility] Comment on above: Performed By: #### C BCA, CMP ####[facility] ([id number])[address] [place] [address] [place] [address] ALT [Catalytic activity/Vol] 9 U/L Normal 0-31 [facility] Comment on above: Performed By: #### C BCA, CMP ####[facility] ([id number])[address] [place] [address] [place] [address] Anion gap [Moles/Vol] 6 mmol/L Normal 5-15 [facility] Comment on above: Performed By: #### C BCA, CMP ####[facility] ([id number])[address] [place] [address] [place] [address] AST [Catalytic activity/Vol] 12 U/L Normal 0-41 [facility] Comment on above: Performed By: #### C BCA, CMP ####[facility] ([id number])[address] [place] [address] [place] [address] Bilirubin [Mass/Vol] 0.5 mg/dL Normal 0.3-1.2 [facility] Comment on above: Performed By: #### C BCA, CMP ####[facility] ([id number])[address] [place] [address] [place] [address] Calcium [Mass/Vol] 9.0 mg/dL Normal 8.5-10.5 [facility] Comment on above: Performed By: #### C BCA, CMP ####[facility] ([id number])[address] [place] [address] [place] [address] Chloride [Moles/Vol] 105 mmol/L Normal 98-109 [facility] Comment on above: Performed By: #### C BCA, CMP ####[facility] ([id number])[address] [place] [address] 84145 CO2 [Moles/Vol] 26 mmol/L Normal 22-32 [facility] Comment on above: Performed By: #### C BCA, CMP ####[facility] ([id number])[address] [place] [address] 40353 Creatinine [Mass/Vol] 0.68 mg/dL Normal 0.40-1.00 [facility] Comment on above: Result Comment: METH OD TRACEABLE TO IDMS STANDARD Performed By: #### C BCA, CMP ####[facility] ([id number])[address] [place] [address] 94704 eGFR (CKD-EPI) NON-RACE DEPENDENT >90 Normal >59 [facility] Comment on above: Result Comment: Reported eGFR is based on the CKD-EPI 2020 equation that does not use a race coefficient. Performed By: #### C BCA, CMP ####[facility] ([id number])[address] [place] [address] 00575 Glucose [Mass/Vol] 121 mg/dL High 65-99 [facility] Comment on above: Performed By: #### C BCA, CMP ####[facility] ([id number])[address] [place] [address] 36580 Potassium [Moles/Vol] 3.7 mmol/L Normal 3.5-5.0 [facility] Comment on above: Performed By: #### C BCA, CMP ####[facility] ([id number])[address] [place] [address] [place] [address] Protein [Mass/Vol] 6.4 g/dL Normal 6.0-8.0 [facility] Comment on above: Performed By: #### C BCA, CMP ####[facility] ([id number])[address] [place] [address] 22571 Sodium [Moles/Vol] 137 mmol/L Normal 134-146 [facility] Comment on above: Performed By: #### C BCA, CMP ####[facility] ([id number])[address] [place] [address] 59425 Urea nitrogen [Mass/Vol] 17 mg/dL Normal 5-23 [facility] Comment on above: Performed By: #### C BCA, CMP ####[facility] ([id number])[address] [place] [address] 25946 CBC AND AUTO DIFFon 09-23-19 24 ABSOLUTE BASOPHIL 0.1 X10E9/L Normal 0.0-0.2 [facility] Comment on above: Performed By: #### C MP, CBCA ####[facility] ([id number])[address] [place] [address] 04068#### 60796-9, 50961-7, HA1C, 27682-3 ####[facility] ([id number])[address] [place] [address], [address] [place] [address] 87459 ABSOLUTE NEUTROPHIL 2.8 X10E9/L Normal 1.5-6.6 [facility] Comment on above: Performed By: #### C MP, CBCA ####[facility] ([id number])[address] [place] [address] 29153#### 60528-5, 07459-5, HA1C, 21921-5 ####[facility] ([id number])[address] [place] [address], [address] [place] [address] 30253 Basophils/100 WBC (Bld) 0.8 % Normal [facility] Comment on above: Performed By: #### C MP, CBCA ####[facility] ([id number])[address] [place] [address] 53619#### 90824-7, 56896-4, HA1C, 07865-8 ####[facility] ([id number])[address] [place] [address] 67419 Eosinophils (Bld) [#/Vol] 0.2 10*3/uL Normal 0.0-0.4 [facility] Comment on above: Performed By: #### C MP, CBCA ####[facility] ([id number])[address] [place] [address] 24681#### 38467-5, 33786-7, HA1C, 21158-8 ####[facility] ([id number])[address] [place] [address] 41483 Eosinophils/100 WBC (Bld) 3.6 % Normal [facility] Comment on above: Performed By: #### C MP, CBCA ####[facility] ([id number])[address] [place] [address] 43454#### 66432-8, 24021-4, HA1C, 79260-8 ####[facility] ([id number])[address] [place] [address] 27286 Erythrocyte distribution width (RBC) [Ratio] 14.7 % Normal 11.5-15.0 [facility] Comment on above: Performed By: #### C MP, CBCA ####[facility] ([id number])[address] [place] [address] 32565#### 58960-0, 52738-6, HA1C, 56937-8 ####[facility] ([id number])[address] [place] [address] 28869 Hematocrit (Bld) [Volume fraction] 36.1 % Normal 35-47 [facility] Comment on above: Performed By: #### C MP, CBCA ####[facility] ([id number])[address] [place] [address] 70473#### 22419-1, 71126-2, HA1C, 39624-6 ####[facility] ([id number])[address], [address], [place] [address] Hemoglobin (Bld) [Mass/Vol] 12.1 g/dL Normal 11.7-15.5 [facility] Comment on above: Performed By: #### C MP, CBCA ####[facility] ([id number])[address] [place] [address] 89861#### 54264-0, 76210-9, HA1C, 91762-6 ####[facility] ([id number])[address], [address] [place] [address] 54736 Lymphocytes (Bld) [#/Vol] 3.3 10*3/uL Normal 1.0-3.5 [facility] Comment on above: Performed By: #### C MP, CBCA ####[facility] ([id number])[address] [place] [address] 27158#### 42403-9, 20202-1, HA, 03653-6 ####[facility] ([id number])[address], [address] [place] [address] 94601 Lymphocytes/100 WBC (Bld) 48.9 % Normal [facility] Comment on above: Performed By: #### C MP, CBCA ####[facility] ([id number])[address] [place] [address] 93662#### 93810-4, 76592-8, HA1C, 89974-9 ####[facility] ([id number])[address], [address] [address] MCH (RBC) [Entitic mass] 29.5 pg Normal 27-34 [facility] Comment on above: Performed By: #### C MP, CBCA ####[facility] ([id number])[address] [place] [address] 09444#### 08896-2, 41760-4, HA1C, 98833-8 ####[facility] ([id number])[address], [address] [place] [address] 74057 MCHC (RBC) [Mass/Vol] 33.7 g/dL Normal 32-36 [facility] Comment on above: Performed By: #### C MP, CBCA ####[facility] ([id number])[address] [place] [address] 11409#### 78499-0, 45726-0, [facility], 32096-1 ####[facility] ([id number])[address], [address] [place] [address] 45393 MCV (RBC) [Entitic vol] 88 fL Normal 80-100 [facility] Comment on above: Performed By: #### C MP, CBCA ####[facility] ([id number])[address] [place] [address] 81162#### 79258-2, 35624-0, [facility], 63016-3 ####[facility] ([id number])[address], [address] [place] [address] 06194 Monocytes (Bld) [#/Vol] 0.4 10*3/uL Normal 0-0.9 [facility] Comment on above: Performed By: #### C MP, CBCA ####[facility] ([id number])[address] [place] [address] 80691#### 55117-4, 67280-1, HA, 25779-0 ####[facility] ([id number])[address], [address] [place] [address] 69034 Monocytes/100 WBC (Bld) 5.9 % Normal [facility] Comment on above: Performed By: #### C MP, CBCA ####[facility] ([id number])[address] [place] [address] 26917#### 54952-6, 37347-6, HA1C, 41585-9 ####[facility] ([id number])[address], [address], [place] [address] Neutrophils/100 WBC (Bld) 40.8 % Normal [facility] Comment on above: Performed By: #### C MP, CBCA ####[facility] ([id number])[address] [place] [address] 62917#### 54908-9, 97450-1, HA1C, 40771-0 ####[facility] ([id number])[address], [address] [place] [address] 53070 Platelet mean volume (Bld) [Entitic vol] 8.8 fL Normal 7-12 [facility] Comment on above: Performed By: #### C MP, CBCA ####[facility] ([id number])[address] [place] [address] 67759#### 77781-7, 29635-9, HA1C, 34686-0 ####[facility] ([id number])[address] [address] Platelets (Bld) [#/Vol] 223 10*3/uL Normal 150-450 [facility] Comment on above: Performed By: #### C MP, CBCA ####[facility] ([id number])[address] [place] [address] 69572#### 90977-9, 47792-9, HA1C, 18008-7 ####[facility] ([id number])[address], [facility] [address], [place] [address] RBC COUNT 4.12 X10E12/L Normal 3.80-5.20 [facility] Comment on above: Performed By: #### C TEODORA, CBCA ####[facility] ([id number])[address] [place] [address] 74730#### 23581-1, 91661-0, HA1C, 36509-0 ####[facility] ([id number])[address], [address] [place] [address] 69460 WBC (Bld) [#/Vol] 6.8 10*3/uL Normal 4.0-11.0 [facility] Comment on above: Performed By: #### C TEODORA, CBCA ####[facility] ([id number])[address] [place] [address] 98594#### 14024-9, 26473-6, HA1C, 19380-2 ####[facility] ([id number])[address] [facility], [address] [place] [address] 34258 COMPREHENSIVE METABOLIC PANE Pineda 09-23-2023 Albumin [Mass/Vol] 3.3 g/dL Normal 3.2-5.3 [facility] Comment on above: Performed By: #### C TEODORA, CBCA ####[facility] ([id number])[address] [place] [address] 74924#### 98360-4, 51659-8, HA1C, 20337-9 ####[facility] ([id number])[address] [facility], [address] [place] [address] 23143 ALP [Catalytic activity/Vol] 57 U/L Normal 39-130 [facility] Comment on above: Performed By: #### C MP, CBCA ####[facility] ([id number])[address] [place] [address] 19311#### 67979-6, 30549-7, HA1C, 65342-3 ####[facility] ([id number])[address], [address], [place] [address] ALT [Catalytic activity/Vol] 10 U/L Normal 0-31 [facility] Comment on above: Performed By: #### C MP, CBCA ####[facility] ([id number])[address] [place] [address] 26661#### 61135-7, 98753-8, HA, 31272-1 ####[facility] ([id number])[address], [address] [place] [address] 72305 Anion gap [Moles/Vol] 10 mmol/L Normal 5-15 [facility] Comment on above: Performed By: #### C TEODORA, CBCA ####[facility] ([id number])[address] [place] [address] 69849#### 70061-5, 47608-8, [facility], 36881-1 ####[facility] ([id number])[address] [facility], [address] [place] [address] 55470 AST [Catalytic activity/Vol] 11 U/L Normal 0-41 [facility] Comment on above: Performed By: #### C TEODORA, CBCA ####[facility] ([id number])[address] [place] [address] 99630#### 98586-5, 45653-9, [facility], 51266-1 ####[facility] ([id number])[address], [address], [place] [address] Bilirubin [Mass/Vol] 0.4 mg/dL Normal 0.3-1.2 [facility] Comment on above: Performed By: #### C MP, CBCA ####[facility] ([id number])[address] [place] [address] 10128#### 74118-1, 36898-3, HA1C, 18429-3 ####[facility] ([id number])[address] [facility], [address] [place] [address] 61344 Calcium [Mass/Vol] 8.9 mg/dL Normal 8.5-10.5 [facility] Comment on above: Performed By: #### C MP, CBCA ####[facility] ([id number])[address] [place] [address] 36463#### 87357-9, 04429-0, HA1C, 12580-4 ####[facility] ([id number])[address] [facility], [address] [address] Chloride [Moles/Vol] 103 mmol/L Normal 98-109 [facility] Comment on above: Performed By: #### C MP, CBCA ####[facility] ([id number])[address] [place] [address] 49041#### 25632-0, 17389-2, HA1C, 56804-4 ####[facility] ([id number])[address] [place] [address] 73597 CO2 [Moles/Vol] 26 mmol/L Normal 22-32 [facility] Comment on above: Performed By: #### C MP, CBCA ####[facility] ([id number])[address] [place] [address] 13440#### 60464-1, 13415-9, HA1C, 51481-6 ####[facility] ([id number])[address] [address] Creatinine [Mass/Vol] 0.70 mg/dL Normal 0.40-1.00 [facility] Comment on above: Result Comment: METH OD TRACEABLE TO IDMS STANDARD Performed By: #### C MP, CBCA ####[facility] ([id number])[address] [place] [address] 41441#### 97392-9, 64922-0, HA1C, 21640-0 ####[facility] ([id number])[address] [address] eGFR (CKD-EPI) NON-RACE DEPENDENT >90 Normal >59 [facility] Comment on above: Result Comment: Reported eGFR is based on the CKD-EPI 2020 equation that does not use a race coefficient. Performed By: #### C TEODORA, CBCA ####[facility] ([id number])[address] [place] [address] 99194#### 74241-1, 48481-0, HA1C, 89792-4 ####[facility] ([id number])[address] [address] Glucose [Mass/Vol] 144 mg/dL High 65-99 [facility] Comment on above: Performed By: #### C TEODORA, CBCA ####[facility] ([id number])[address] [place] [address] 83984#### 30242-9, 21862-5, HA1C, 56849-5 ####[facility] ([id number])[address] [address] Potassium [Moles/Vol] 3.6 mmol/L Normal 3.5-5.0 [facility] Comment on above: Performed By: #### C TEODORA, CBCA ####[facility] ([id number])[address] [place] [address] 14227#### 97827-1, 69504-9, HA1C, 12745-0 ####[facility] ([id number])[address] [address] Protein [Mass/Vol] 6.2 g/dL Normal 6.0-8.0 [facility] Comment on above: Performed By: #### C MP, CBCA ####[facility] ([id number])[address] [place] [address] 22737#### 59539-8, 40054-4, HA1C, 66992-0 ####[facility] ([id number])[address] [facility], [address] [place] [address] 78794 Sodium [Moles/Vol] 139 mmol/L Normal 134-146 [facility] Comment on above: Performed By: #### C MP, CBCA ####[facility] ([id number])[address] [place] [address] 70228#### 79929-7, 08014-1, HA1C, 46409-3 ####[facility] ([id number])[address] [facility], [address] [place] [address] Urea nitrogen [Mass/Vol] 20 mg/dL Normal 5-23 [facility] Comment on above: Performed By: #### C MP, CBCA ####[facility] ([id number])[address] [place] [address]#### 32195-4, 51140-7, HA1C, 01904-5 ####[facility] ([id number])[address] [facility], [address] [place] [address]373 DRUG SCREEN, URINEon 024 AMPHETAMINE/METHAMP Negative Normal NEG [facility] Comment on above: Result Comment: AMPH /METH screening cut off = 1000 ng/mL Performed By: #### D ALEJANDRO ####[facility] ([id number])[address] [place] [address] BARBITURATES Negative Normal NEG [facility] Comment on above: Result Comment: Milagros iturates screening cut off value = 200 ng/mL Performed By: #### D ALEJANDRO ####[facility] ([id number])[address] [place] [address], [place] [address] BENZODIAZEPINES Negative Normal NEG [facility] Comment on above: Result Comment: Juaquin odiazepines screening cut off value = 200 ng/mL Performed By: #### D ALEJANDRO ####[facility] ([id number])[address] [place] [address] [place] [address] CANNABINOIDS Negative Normal NEG [facility] Comment on above: Result Comment: Eleanor abinoids/THC screening cut off value = 50 ng/mL Performed By: #### D ALEJANDRO ####[facility] ([id number])[address] [place] [address] COCAINE METABOLITE Negative Normal NEG [facility] Comment on above: Result Comment: Coca ine screening cut off value = 300 ng/mL Performed By: #### D ALEJANDRO ####[facility] ([id number])[address] [place] [address] ECSTASY Negative Normal NEG [facility] Comment on above: Result Comment: Ecst asy screening cut off value = 500 ng/mL This report is intended for use in clinical monitoring or management of patients. Performed By: #### D ALEJANDRO ####[facility] ([id number])[address] [place] [address], [place] [address] METHADONE Negative Normal NEG [facility] Comment on above: Result Comment: Meth adone screening cut off value = 300 ng/mL. Performed By: #### D ALEJANDRO ####[facility] ([id number])[address] [place] [address] [place] [address] OPIATES Negative Normal NEG [facility] Comment on above: Result Comment: Opia anibal screening cut off value = 300 ng/mL NOTE: This test is used for the detection of codeine, hydrocodone (>1000 ng/mL), morphine and hydromorphone (>900 ng/mL) in urine. Performed By: #### D ALEJANDRO ####[facility] ([id number])[address] [place] [address] OXYCODONE Negative Normal NEG [facility] Comment on above: Result Comment: Oxyc odone screening cut off value = 300 ng/mL NOTE: This test is used for the detection of oxycodone and oxymorphone in urine. Performed By: #### D ALEJANDRO ####[facility] ([id number])[address] [place] [address] 89429 PHENCYCLIDINE Negative Normal NEG [facility] Comment on above: Result Comment: Phen cyclidine screening cut off value = 25 ng/mL Performed By: #### D ALEJANDRO ####[facility] ([id number])[address] [place] [address] 33393 FREE T3on 09-23-2023 Free T3 [Mass/Vol] 3.39 pg/mL Normal 2.50-3.90 [facility] Comment on above: Performed By: #### 3 051-0 ####[facility] ([id number])[address], [address], [place] [address] Glucose Glucometer (BldC) [M ass/Vol]on 09-23-2023 Glucose [Mass/Vol] 164 mg/dL High 65-99 [facility] Glucose [Mass/Vol] 182 mg/dL High 65-99 [facility] Glucose [Mass/Vol] 133 mg/dL High 65-99 [facility] HGB A1C (GLYCO-HGB)on 2023 Glucose [Mass/Vol] 217 mg/dL Normal [facility] Comment on above: Performed By: #### C MP, CBCA ####[facility] ([id number])[address] [place] [address] 24715#### 54023-9, 82146-7, HA1C, 92388-2 ####[facility] ([id number])[address], [address] [place] [address] HbA1c (Bld) [Mass fraction] 9.2 % High 4.4-5.6 [facility] Comment on above: Result Comment: NOTE ADA Guidelines Result HgbA1c Normal : less than 5.7 % Prediabetes : 5.7 % to 6.4 % Diabetes : > 6.4 % Use with caution in patients with abnormal hemoglobin variants as the half-life of red blood cells and in vivo glycation rates are affected. Performed By: #### C TEODORA, CBCA ####[facility] ([id number])[address] [place] [address]#### 19189-4, 73244-8, HA1C, 39756-7 ####[facility] ([id number])[address] [facility], [address] [address] Lipid 1996 panelon 4 Cholesterol [Mass/Vol] 256 mg/dL High 150-200 [facility] Comment on above: Performed By: #### C TEODORA, CBCA ####[facility] ([id number])[address] [place] [address]#### 93071-2, 84596-8, HA1C, 62719-4 ####[facility] ([id number])[address] [facility], [address] [address] Cholesterol in HDL [Mass/Vol] 38 mg/dL Low >39 [facility] Comment on above: Result Comment: HDL <40 mg/dL - High Risk HDL > or = 40mg/dL- Desirable HDL >60 mg/dL - Negative Risk Performed By: #### C MP, CBCA ####[facility] ([id number])[address] [place] [address]#### 56435-6, 20145-0, HA1C, 84907-7 ####[facility] ([id number])[address], [address] [address] Cholesterol in LDL [Mass/Vol] 160 mg/dL High <130 [facility] Comment on above: Result Comment: LDL <100 mg/dL - Desirable LDL >160 mg/dL - High Risk Performed By: #### LORENZO Gar MP ####[facility] ([id number])[address] [place] [address]#### 67285-3, 17875-0, HA1C, 16804-2 ####[facility] ([id number])[address] [address] Cholesterol in VLDL [Mass/Vol] 58 mg/dL High 0-30 [facility] Comment on above: Performed By: #### LORENZO Gar MP ####[facility] ([id number])[address] [place] [address]#### 80573-3, 93079-7, HA1C, 04213-9 ####[facility] ([id number])[address] [address] CHOLESTEROL:HDL 6.7 High 1.0-5.0 [facility] Comment on above: Performed By: #### Rin ARAIZA CBCA ####[facility] ([id number])[address] [place] [address]#### 63037-5, 22201-3, HA1C, 27910-0 ####[facility] ([id number])[address] [address] Triglyceride [Mass/Vol] 288 mg/dL High 27-150 [facility] Comment on above: Performed By: #### C TEODORA CBCA ####[facility] ([id number])[address] [place] [address]#### 69721-6, 90570-6, HA1C, 34540-6 ####[facility] ([id number])[address] [facility], [address] [place] [address] 67480 MR BRAIN WO CONTon MR BRAIN WO CONT MR BRAIN WO CONT MR BRAIN WO CONT: 09/23/2023 1:09 PM Clinical: Left-sided numbness. EXAM: MRI brain Comparison: none Procedure: Multiplanar spinecho MRI brain performed. Findings: On diffusion sequence, there is a small focus of restricted diffusion in the right thalamus consistent with a small acute infarction. On FLAIR sequence, there are a few foci of increased signal in the periventricular white matter, nonspecific, possibly due to chronic small vessel ischemic change. Ventricles are normal size. There are no intracranial masses, mass-effect, or extra-axial fluid collection, or acute hemorrhage. Pituitary and suprasellar regions are grossly unremarkable but detailed imaging of this area was not performed. Cranio-cervical junction is normal. There are appropriate flow voids in large cerebral vessels on T2 weighted imaging. IMPRESSION: Small acute infarction right thalamus. 539 Finalized by Ricky Arvizu MD on 09/23/2023 1:51 PM Normal [facility] Nuclear Ab IA Ql (S)on 09-22 ABEL Screen w/reflex Negative Normal NEG [facility] Comment on above: Result Comment: Testing performed using multiplex flow immunoassay. Eleven different antigens associated with systemic autoimmune diseases (dsDNA,Sm,Sm/CHIMNEY BUILDER BRICK,CHIMNEY BUILDER BRICK,Chromatin, SSA,SSB,Winter-1,Scl70,Ribo P,Centromere B) are included in this screening test. Performed By: #### C TEODORA, LISEA ####[facility] ([id number])[address] [place] [address]#### 14437-5, 18011-8, HA1C, 53825-6 ####[facility] ([id number])[address], [address] [place] [address]846 POTASSIUMon 09-23-2023 Potassium [Moles/Vol] 4.1 mmol/L Normal 3.5-5.0 [facility] Comment on above: Performed By: #### 2 823-3 ####[facility] ([id number])[address] [place] [address] 89928 Rheumatoid factor Nephelomet ry Qn (S)on 09-23-2023 RHEUMATOID FACTOR <10 Normal <20 [facility] Comment on above: Performed By: #### C MP, CBCA ####[facility] ([id number])[address] [place] [address] 39815#### 24808-0, 49556-8, [facility], 84505-1 ####[facility] ([id number])[address], [address] [place] [address] URINE CULTUREon 09-23-2023 Bacteria identified Cx Nom (U) CULTURE RESULTS 50-100,000 ORGANISMS/ML NORMAL UROGENITAL MARY Normal [facility] Comment on above: Performed By: #### 6 30-4 ####[facility] ([id number])[address], [address] [place] [address]89 BASIC METABOLIC PANLon 09-21 Anion gap [Moles/Vol] 7 mmol/L Normal 5-15 [facility] Comment on above: Performed By: #### C BCA, PINR, 15781-4, BMP, 99507-5, 3016-3, 3024-7 #### [facility] ([id number]) [address] [place] [address] Calcium [Mass/Vol] 9.3 mg/dL Normal 8.5-10.5 [facility] Comment on above: Performed By: #### C BCA, PINR, 90936-1, BMP, 95474-2, 3016-3, 3024-7 #### [facility] ([id number]) [address] [place] [address] 11894 Chloride [Moles/Vol] 103 mmol/L Normal 98-109 [facility] Comment on above: Performed By: #### C BCA, PINR, 53314-3, BMP, 17193-1, 3016-3, 3024-7 #### [facility] ([id number]) [address] [place] [address] 88481 CO2 [Moles/Vol] 25 mmol/L Normal 22-32 [facility] Comment on above: Performed By: #### C BCA, PINR, 28617-4, BMP, 58133-0, 3016-3, 3024-7 #### [facility] ([id number]) [address] [place] [address]404 Creatinine [Mass/Vol] 0.98 mg/dL Normal 0.40-1.00 [facility] Comment on above: Result Comment: METH OD TRACEABLE TO IDMS STANDARD Performed By: #### C BCA, PINR, 12754-8, BMP, 20993-8, 3016-3, 3024-7 #### [facility] ([id number]) [address] [place] [address] 31178 GFR/1.73 sq M.predicted among non-blacks MDRD (S/P/Bld) [Vol rate/Area] 69 mL/min/{1.73_m2} Normal >59 [facility] Comment on above: Result Comment: Reported eGFR is based on the CKD-EPI 2020 equation that does not use a race coefficient. Performed By: #### C BCA, PINR, 94167-9, BMP, 58708-8, 3016-3, 3024-7 #### [facility] ([id number]) [address] [place] [address] 60835 Glucose [Mass/Vol] 296 mg/dL High 65-99 [facility] Comment on above: Performed By: #### C BCA, PINR, 22376-5, BMP, 45719-6, 3016-3, 3023-08 #### [facility] ([id number]) [address] [place] [address] 21156 Potassium [Moles/Vol] 3.9 mmol/L Normal 3.5-5.0 [facility] Comment on above: Performed By: #### C BCA, PINR, 92142-1, BMP, 30760-3, 6-3, 3023-08 #### [facility] ([id number]) [address] [place] [address] 94319 Sodium [Moles/Vol] 135 mmol/L Normal 134-146 [facility] Comment on above: Performed By: #### C BCA, PINR, 18990-7, BMP, 82639-1, 3015-3, 7 #### [facility] ([id number]) [address] [place] [address] 25947 Urea nitrogen [Mass/Vol] 21 mg/dL Normal 5-23 [facility] Comment on above: Performed By: #### C BCA, PINR, 67502-0, BMP, 82072-9, 3015-3, 7 #### [facility] ([id number]) [address] [place] [address] 01724 CBC AND AUTO DIFFon 08-10-03 24 ABSOLUTE BASOPHIL 0.1 X10E9/L Normal 0.0-0.2 [facility] Comment on above: Performed By: #### C BCA, PINR, 52513-1, BMP, 25401-6, 3016-3, 3023-08 #### [facility] ([id number]) [address] [place] [address] 66470 ABSOLUTE NEUTROPHIL 4.3 X10E9/L Normal 1.5-6.6 [facility] Comment on above: Performed By: #### C BCA, PINR, 83838-4, BMP, 42813-1, 3016-3, 3023-08 #### [facility] ([id number]) [address] [place] [address] 32987 Basophils/100 WBC (Bld) 0.9 % Normal [facility] Comment on above: Performed By: #### C BCA, PINR, 40653-4, BMP, 34322-3, 3015-3, 3023-08 #### [facility] ([id number]) [address] [place] [address] 43249 Eosinophils (Bld) [#/Vol] 0.2 10*3/uL Normal 0.0-0.4 [facility] Comment on above: Performed By: #### C BCA, PINR, 13988-3, BMP, 34708-3, 3015-3, 3023-08 #### [facility] ([id number]) [address] [place] [address] 17427 Eosinophils/100 WBC (Bld) 2.4 % Normal [facility] Comment on above: Performed By: #### C BCA, PINR, 57507-5, BMP, 64282-3, 3015-04, 3023-08 #### [facility] ([id number]) [address] [place] [address] 33967 Erythrocyte distribution width (RBC) [Ratio] 14.8 % Normal 11.5-15.0 [facility] Comment on above: Performed By: #### C BCA, PINR, 40873-1, BMP, 65537-2, 3015-3, 3023-08 #### [facility] ([id number]) [address] [place] [address] 53680 Hematocrit (Bld) [Volume fraction] 42.3 % Normal 35-47 [facility] Comment on above: Performed By: #### C BCA, PINR, 04969-8, BMP, 22649-8, 3016-3, 302- #### [facility] ([id number]) [address] [place] [address] 31150 Hemoglobin (Bld) [Mass/Vol] 14.1 g/dL Normal 11.7-15.5 [facility] Comment on above: Performed By: #### C BCA, PINR, 35426-0, BMP, 93671-3, 3016-3, 302-7 #### [facility] ([id number]) [address] [place] [address] 62747 Lymphocytes (Bld) [#/Vol] 2.0 10*3/uL Normal 1.0-3.5 [facility] Comment on above: Performed By: #### C BCA, PINR, 12048-5, BMP, 91035-9, 6-3, 7 #### [facility] ([id number]) [address] [place] [address] 99267 Lymphocytes/100 WBC (Bld) 29.1 % Normal [facility] Comment on above: Performed By: #### C BCA, PINR, 81984-1, BMP, 25473-1, 3016-3, 7 #### [facility] ([id number]) [address] [place] [address] 68979 MCH (RBC) [Entitic mass] 29.3 pg Normal 27-34 [facility] Comment on above: Performed By: #### C BCA, PINR, 30274-1, BMP, 71838-4, 3016-3, 7 #### [facility] ([id number]) [address] [place] [address] 99300 MCHC (RBC) [Mass/Vol] 33.2 g/dL Normal 32-36 [facility] Comment on above: Performed By: #### C BCA, PINR, 88831-5, BMP, 81198-3, 3016-3, 3023-08 #### [facility] ([id number]) [address] [place] [address] 98840 MCV (RBC) [Entitic vol] 88 fL Normal 80-100 [facility] Comment on above: Performed By: #### C BCA, PINR, 29741-3, BMP, 19158-3, 301-3, 3023-08 #### [facility] ([id number]) [address] [place] [address] 82904 Monocytes (Bld) [#/Vol] 0.3 10*3/uL Normal 0-0.9 [facility] Comment on above: Performed By: #### C BCA, PINR, 98774-7, BMP, 81894-1, 3015-3, 3023-08 #### [facility] ([id number]) [address] [place] [address] 79233 Monocytes/100 WBC (Bld) 4.9 % Normal [facility] Comment on above: Performed By: #### C BCA, PINR, 98732-8, BMP, 72056-3, 3015-3, 3023-08 #### [facility] ([id number]) [address] [place] [address] 83948 Neutrophils/100 WBC (Bld) 62.7 % Normal [facility] Comment on above: Performed By: #### C BCA, PINR, 29462-7, BMP, 36174-0, 3015-3, 3023-08 #### [facility] ([id number]) [address] [place] [address] 81738 Platelet mean volume (Bld) [Entitic vol] 8.8 fL Normal 7-12 [facility] Comment on above: Performed By: #### C BCA, PINR, 87957-9, BMP, 80051-4, 3016-3, 3024-7 #### [facility] ([id number]) [address] [place] [address] 95021 Platelets (Bld) [#/Vol] 260 10*3/uL Normal 150-450 [facility] Comment on above: Performed By: #### C BCA, PINR, 29249-4, BMP, 86628-9, 3016-3, 3024-7 #### [facility] ([id number]) [address] [place] [address] 67449 RBC COUNT 4.80 X10E12/L Normal 3.80-5.20 [facility] Comment on above: Performed By: #### C BCA, PINR, 79284-5, BMP, 07040-6, 3016-3, 3024-7 #### [facility] ([id number]) [address] [place] [address] 33940 WBC (Bld) [#/Vol] 6.9 10*3/uL Normal 4.0-11.0 [facility] Comment on above: Performed By: #### C BCA, PINR, 50074-5, BMP, 93402-3, 3016-3, 3024-7 #### [facility] ([id number]) [address] [place] [address] BRAIN WO CONTon 4 CT BRAIN WO CONT CT BRAIN WO CONT Exam: CT brain without contrast. CLINICAL HISTORY: Left-sided numbness TECHNIQUE: CT brain without intravenous contrast. COMPARISON: None FINDINGS: There is no evidence of acute intracranial bleeding, mass effect, or CT evidence of acute ischemia/infarct. The midline structures are intact, no midline shift. The ventricles and basal cisterns are within normal limits. The brainstem and cerebellum are unremarkable. The visualized intraorbital contents are unremarkable. The paranasal sinuses and mastoid air cells are well aerated. No acute osseous abnormality in the visualized skull base and calvarium. IMPRESSION: No acute intracranial pathology. All CT scans at this facility use dose modulation, iterative reconstruction, and/or weight based dosing when appropriate to reduce radiation dose to as low as reasonably achievable. 276 Finalized by Sherif Viramontes on 09/22/2023 2:45 PM Normal [facility] CT CTA CAROTIDon 09-22-[address] CTA HEAD AND CAROTID 09/22/2023 2:38 PM INDICATION: Neuro deficit, acute, stroke suspected COMPARISON: None TECHNIQUE: CT images of the head and neck were obtained following the administration intravenous contrast. 3-D images were also post processed at a separate workstation to further define anatomy and potential pathology. All CT scans at this facility use dose modulation, iterative reconstruction, and/or weight based dosing when appropriate to reduce radiation dose to as low as reasonably achievable. FINDINGS: CTA NECK ARTERIAL VASCULATURE: Aorta: There is classic aortic arch branching. Subclavians: Subclavian arteries are patent. Right Carotid: Common carotid artery is patent without significant stenosis. The carotid bifurcation is patent. The external carotid artery is patent. The internal carotid artery demonstrates a normal course and caliber. Left Carotid: Common carotid artery is patent without significant stenosis. The carotid bifurcation is patent. The external carotid artery is patent. The internal carotid artery demonstrates a normal course and caliber. Right Vertebral: Normal course and caliber Left Vertebral: Normal course and caliber CTA HEAD ARTERIAL VASCULATURE: Vertebrobasilar: The distal vertebral and basilar arteries are patent. Posterior Cerebral: Patent without significant stenosis. Internal Carotids: Mild atheromatous disease bilaterally without significant stenosis. Anterior Cerebral: Patent without significant stenosis. Middle Cerebral: Patent without significant stenosis. Other: No aneurysm or malformation. SURROUNDING STRUCTURES VENOUS VASCULATURE: Visualized major dural venous sinuses are patent. BRAIN: No mass effect or midline shift. No hydrocephalus. SOFT TISSUES: Partially visualized linear metallic foreign body of the right upper chest wall, likely proximal portion of stimulator device. Stimulator device distal portion within the submandibular/sub lingual region. Thyroid nodules measuring up to at least 11 mm. Slightly prominent upper neck lymph nodes. Moderate tonsillar hypertrophy, most prominent in the lingual tonsils. LUNG APICES: Suggestion of subsegmental atelectasis. OSSEOUS STRUCTURES: Mild degenerative changes of the cervical spine. IMPRESSION: 1. Patent head arterial vasculature. 2. Patent neck arterial vasculature. 3. Multiple thyroid nodules. Nonemergent ultrasound recommended. 4. Moderate tonsillar hypertrophy, most prominent in the lingual tonsils. Direct visualization could be considered. 790 Finalized by Nate Key DO on 09/22/2023 3:08 PM Normal [facility] CT CTA HEADon 09-22-[address] CTA HEAD CT CTA HEAD AND CAROTID 09/22/2023 2:38 PM INDICATION: Neuro deficit, acute, stroke suspected COMPARISON: None TECHNIQUE: CT images of the head and neck were obtained following the administration intravenous contrast. 3-D images were also post processed at a separate workstation to further define anatomy and potential pathology. All CT scans at this facility use dose modulation, iterative reconstruction, and/or weight based dosing when appropriate to reduce radiation dose to as low as reasonably achievable. FINDINGS: CTA NECK ARTERIAL VASCULATURE: Aorta: There is classic aortic arch branching. Subclavians: Subclavian arteries are patent. Right Carotid: Common carotid artery is patent without significant stenosis. The carotid bifurcation is patent. The external carotid artery is patent. The internal carotid artery demonstrates a normal course and caliber. Left Carotid: Common carotid artery is patent without significant stenosis. The carotid bifurcation is patent. The external carotid artery is patent. The internal carotid artery demonstrates a normal course and caliber. Right Vertebral: Normal course and caliber Left Vertebral: Normal course and caliber CTA HEAD ARTERIAL VASCULATURE: Vertebrobasilar: The distal vertebral and basilar arteries are patent. Posterior Cerebral: Patent without significant stenosis. Internal Carotids: Mild atheromatous disease bilaterally without significant stenosis. Anterior Cerebral: Patent without significant stenosis. Middle Cerebral: Patent without significant stenosis. Other: No aneurysm or malformation. SURROUNDING STRUCTURES VENOUS VASCULATURE: Visualized major dural venous sinuses are patent. BRAIN: No mass effect or midline shift. No hydrocephalus. SOFT TISSUES: Partially visualized linear metallic foreign body of the right upper chest wall, likely proximal portion of stimulator device. Stimulator device distal portion within the submandibular/sub lingual region. Thyroid nodules measuring up to at least 11 mm. Slightly prominent upper neck lymph nodes. Moderate tonsillar hypertrophy, most prominent in the lingual tonsils. LUNG APICES: Suggestion of subsegmental atelectasis. OSSEOUS STRUCTURES: Mild degenerative changes of the cervical spine. IMPRESSION: 1. Patent head arterial vasculature. 2. Patent neck arterial vasculature. 3. Multiple thyroid nodules. Nonemergent ultrasound recommended. 4. Moderate tonsillar hypertrophy, most prominent in the lingual tonsils. Direct visualization could be considered. 790 Finalized by Nate Key DO on 09/22/2023 3:08 PM Normal [facility] FREE T4on 09-22-2023 Free T4 [Mass/Vol] 3.04 ng/dL High 0.61-1.60 [facility] Comment on above: Performed By: #### C BCA, PINR, 25063-2, BMP, 72303-9, 3016-3, 302-7 #### [facility] ([id number]) [address] [place] [address] 69088 Glucose Glucometer (BldC) [M ass/Vol]on 09-22-2023 Glucose [Mass/Vol] 276 mg/dL High 65-99 [facility] PROTIME AND INRon 09-22-2023 INR Coag (PPP) [Relative time] 1.0 {INR} Normal 0.8-1.1 [facility] Comment on above: Performed By: #### C BCA, PINR, 76586-8, BMP, 04870-3, 3016-3, 3023-7 #### [facility] ([id number]) [address] [place] [address] 02798 PT Coag (PPP) [Time] 11.8 s Normal 9.8-13.2 [facility] Comment on above: Result Comment: NEW REFERENCE RANGE Performed By: #### C BCA, PINR, 05288-6, BMP, 03210-0, 3016-3, 302-7 #### [facility] ([id number]) [address] [place] [address] 52931 TSH Qnon 09-22-2023 TSH 1.13 uIU/mL Normal 0.49-4.67 [facility] Comment on above: Performed By: #### C BCA, PINR, 79068-7, BMP, 23903-5, 3016-3, 3024-7 #### [facility] ([id number]) [address] [place] [address] 66936 Troponin I.cardiac High sens itivity method [Mass/Vol]on 09-22-2023 1 HOUR TROP I, HIGH SENSITIVITY <2 Normal <16 [facility] Comment on above: Performed By: #### 8 9579-7 ####[facility] ([id number])[address] [place] [address] 54209 TROPONIN I, HIGH SENSITIVITY 2 ng/L Normal <16 [facility] Comment on above: Performed By: #### C BCA, PINR, 69107-5, BMP, 75821-9, 3016-3, 3024-7 #### [facility] ([id number]) [address] [place] [address] 48562 aPTT Coag (PPP) [Time]on aPTT Coag (Bld) [Time] 33 s Normal 26-37 [facility] Comment on above: Result Comment: NEW REFERENCE RANGE Performed By: #### C BCA, PINR, 97347-3, BMP, 97044-2, 3016-3, 3024-7 #### [facility] ([id number]) [address] [place] [address] 40187 Family Medicine Office/Clini c Noteon 08-31-2023 Family Medicine Office/Clinic Note Family Medicine Office/Clinic Note Chief Complaint chronic follow up HPI Staff Patient here today for chronic follow up. gerd: stable HDL: Patient is here for follow up on Diabetes. How often are you checking your blood sugars? 0 times per day What are your average readings? _ Do you have any of the following symptoms? Foot Exam: utd, 02/17/2023 Eye Exam: 08/16/2023 Microalbumin: U Microalb: 81.8 mg/dL High (02/17/23 16:20:00) Last A1C: Hgb A1C %: 8 % High (11/15/22 06:09:00) Patient is here for follow up on hypertension. How often are you checking your blood pressure? Doesnt check BP at home What are your average readings? N/A, Not checking at home Do you have any of the following symptoms? Chest Pain? no Palpitations? no CHANG/SOB? no Headache? no Peripheral Edema? no Light Headedness? no Follow up for Mental Status: Medication adherence- Yes, takes medication as prescribed Suicidal thoughts-Not at this time Most recent JONATAN: 16 Most recent PHQ: 9 Health Maintenance: Colonoscopy: due Mammo: 08/30/2022 Pap: due Last Labs: 03/24/2023 AWV: utd History of Present Illness The patient is a 53-year-old female coming in for a chronic follow-up. The patient requires a refill of her Lasix prescription. She has been without citalopram for several months. She requires additional refills for her Dexcom G7 sensors, which she changes every 12 to 14 days. She is uncertain about her blood glucose levels, as she recently exhausted her sensors. However, she plans to replace them upon her return home. She expresses a desire to reduce her A1c levels. The patient reports severe pain in her back and legs, which commenced approximately 1 to 2 months ago. She denies any preceding injuries or falls. The pain, which she describes as radiating down her legs, is more pronounced in the left leg. She denies any associated weakness, tripping, numbness, or tingling in the pelvic area. The patient has been experiencing severe diarrhea for several months, which has resulted in accidents. The diarrhea is described as watery, occurring 2 to 3 times daily. She is unsure of the onset of the diarrhea. She is unsure if the diarrhea is food-related. She denies any foul odor or presence of blood or mucus in the stool. The stool is brown in color. She has been taking potassium supplements. She has been on Rybelsus for an extended period. She denies any recent camping or antibiotic use. Supplemental Information Her last Pap smear was last year and it was normal. Review of Systems PHQ Score Initial Depression Screen Score: 0 SCORE Negative except as above Physical Exam Vitals & Measurements HR: 89(Peripheral) BP: 104/70 SpO2: 98% HT: 63 in HT: 160 cm WT: 87.8 kg WT: 193.16 lb BMI: 34.3 Gen: No acute distress, sitting comfortably in chair Cardio: RRR, no murmur/rubs/honeycutt ps Resp: CTAB, no wheezing/rales/rh onchi Psych: Pleasant, normal mood, normal affect Neuro: CN II-XII intact, normal gait Assessment/Plan 1. Diarrhea (R19.7: Diarrhea, unspecified) stool studies ordered 2. Lower extremity edema (R60.0: Localized edema) lasix 20 mg daily prescribed wear compression stockings keep feet elevated when laying down or sitting 3. Type 2 diabetes mellitus (E11.9: Type 2 diabetes mellitus without complications) Hgb A1C %: 8 % High (11/15/22 06:09:00) Hgb A1c POC: 10.3 % (08/17/23 15:00:00) cont invokana 300 mg daily, glimepiride 4 mg BID, and rybelsus 14 mg daily, januvia 50 mg daily discussed importance of medication adherence 4. BMI 34.0-34.9,adult (Z68.34: Body mass index [BMI] 34.0-34.9, adult) The standard range for ages 18 and older is >=18.5 and < 25 kg/m2. Your BMI today was above this range, this falls in the overweight to obese category and there are medical benefits to weight loss. We can offer counselling, referral, and/or medical support in addressing this problem. Your BMI and weight management will be followed at subsequent visits. 5. Colon cancer screening (Z12.11: Encounter for screening for malignant neoplasm of colon) colonoscopy ordered 6. Smoker (F17.200: Nicotine dependence, unspecified, uncomplicated) declines quitting at this time 7. Obesity due to excess calories (E66.09: Other obesity due to excess calories) increase whole foods, decrease processed foods exercise at least 2.5 hours weekly 8. Low back pain (M54.50: Low back pain, unspecified) xr lumbar spine ordered today Portions of this record may have been created with voice recognition artificial intelligence software, specifically [employer], [employer] and or [employer] Substitutions may have occurred due to the inherent limitations of voice recognition and artificial intelligence software. Follow-up With When Contact Information Andreina Thao MD, FAM, MED In 6 months 01/24/[address] [phone] Business (1) Additional Instructions: Problem List/Past Medic (more content not included)... Normal [facility] Comment on above: Result Comment: Elec tronically Signed By: Andreina Thao MD\.br\Date and Time Signed: 08/31/23 09:29 EDT XR SPINE LUMBAR 2 OR 3 VWSon 08-24-2023 XR SPINE LUMBAR 2 OR 3 VWS XR SPINE LUMBAR 2 OR 3 VWS XR SPINE LUMBAR 2 OR 3 VWS Clinical history:Lumbar radiculopathy Comparison: None. Findings: Lower lumbar degenerative disc disease with disco loss and endplate degenerative changes most pronounced at L4-L5 and L5-S1. Transitional lumbosacral segment. Impression: Lower lumbar degenerative disc disease. No acute process. Workstation:[employer] Finalized by Alex Garrett MD on 08/24/2023 4:39 PM Normal [facility] Ambulatory Visit Summaryon 0 08-17-2023 Ambulatory Visit Summary Ambulatory Visit Summary JOSE GEE :1970 Visit Date:08/17/2023 Ambulatory Visit Instructions Your Diagnosis Diarrhea BMI 34.0-34.9,adult Smoker Colon cancer screening Lower extremity edema Type 2 diabetes mellitus Your Care Team Attending Physician - Andreina Thao MD Primary Care Physician - Andreina Thao MD This Is Your Medications List Misc Prescription (sensor) citalopram (CeleXA 40 mg Tab) clonidine (cloNIDine 0.1 mg tab) furosemide (furosemide 20 mg Tab) Contact prescribing physician if questions or concerns Misc Prescription (Blood pressure monitor device) albuterol (Albuterol (Eqv-ProAir HFA) 90 mcg/inh inhalation aerosol) aripiprazole (aripiprazole 10 mg Tab) benzocaine topical (Orajel 20% mucous membrane gel) busPIRone (busPIRone 10 mg Tab) canagliflozin (Invokana 300 mg oral tablet) dicyclomine (dicyclomine 20 mg Tab) fluticasone (fluticasone propionate) gabapentin (gabapentin 600 mg Tab) glimepiride (glimepiride 2 mg Tab) hydrOXYzine (hydrOXYzine hydrochloride 50 mg oral tablet) hydrocortisone topical (hydrocortisone Top 2.5% Crm) ibuprofen (ibuprofen 800 mg Tab) lisinopril (lisinopril 2.5 mg Tab) multivitamin mupirocin topical (mupirocin Top 2% Crm) omeprazole (omeprazole 40 mg Cap-DR) potassium chloride (Potassium Chloride (Eqv-K-Tab) 10 mEq oral tablet, extended release) rosuvastatin (rosuvastatin 40 mg Tab) semaglutide (Rybelsus 14 mg oral tablet) sitagliptin (Januvia 50 mg Tab) trazodone (traZODONE 50 mg Tab) Procedures Performed Cataract surgery (08/02/2019), Tubal ligation (03/04/1999), Carpal tunnel, Hernia, Shoulder. Discharge Vitals Heart Rate (Peripheral) 89 Blood Pressure 104/70 Height 160 cm Height 63 in Weight 87.8 kg Weight 193.16 lb BMI 34.3 What to do next Scheduled Follow-Up Appointments Tuesday 1:00 PM EST Where: [facility] Consultation Noteon 07-12-19 Consultation Note [id number]#[id number] [facility] Consultation Noteon 07-01-19 Consultation Note [id number]#1.00TIFF [facility] Amphetamine Screen Ql (U)Ord ered By: MELINA ARIAS on 06-29-2023 Amphetamines Ql (U) Negative Negative [facility] Barbiturates [Presence] in U rine by Screen methodOrdered By: MELINA ARIAS on 06-29-2023 Barbiturates Screen Ql (U) Negative Negative [facility] Benzodiazepines Screen Ql (U )Ordered By: MELNIA ARIAS on 06-29-2023 Benzodiazepines Ql (U) Negative Negative [facility] Benzoylecgonine [Presence] i n Urine by Screen methodOrdered By: MELINA ARIAS on 06-29-2023 Benzoylecgonine Screen Ql (U) Negative Negative [facility] Cannabinoids [Presence] in U rine by Screen methodOrdered By: MELINA ARIAS on 06-29-2023 Cannabinoids Screen Ql (U) Positive Negative [facility] Comment on above: These are unconfirme d results and should not be used for legal purposes. Drug Cut-Off Concentration: AMPH 1000 ng/mL MILAGROS 200 ng/mL JUAQUIN 200 ng/mL COCM 300 ng/mL OP 300 ng/mL PCP 25 ng/mL THC 20 ng/mL Capillary blood glucose court urement by glucometer (mass/volume)Ordered By: Kai Vidal on 06-29-2023 Glucose [Mass/Vol] 184 mg/dL Normal [facility] Comment on above: Random Glucose Refer ence Range is dependent on time and content of last meal. Glucose of more than 200 mg/dL in a nonstressed, ambulatory subject supports the diagnosis of Diabetes Mellitus. Result Comment: [place] om Glucose Reference Range is dependent on time and content of last meal. Glucose of more than 200 mg/dL in a nonstressed, ambulatory subject supports the diagnosis of Diabetes Mellitus. PERFORMED BY: [place] [address] PATHOLOGIST [employer]CAN[employer] FIBER UNIT OPERATOR NEIDA GOMES M.D. Performed By: #### G LULS #### Point of Care testing , Drug Screen,Urineon 06-29-19 24 Amphetamine Screen,Urine Negative Normal Negative [facility] Comment on above: Performed By: #### U RDS #### [address] Barbiturate Screen,Urine Negative Normal Negative [facility] Comment on above: Performed By: #### U RDS #### [place] [address] [place] Benzodiazepines Screen,Urine Negative Normal Negative [facility] Comment on above: Performed By: #### U RDS #### [place] [address] [place] Cannabinoid Screen,Urine Positive High Negative [facility] Comment on above: Result Comment: Thes e are unconfirmed results and should not be used for legal purposes. Drug Cut-Off Concentration: AMPH 1000 ng/mL MILAGROS 200 ng/mL JUAQUIN 200 ng/mL COCM 300 ng/mL OP 300 ng/mL PCP 25 ng/mL THC 20 ng/mL PERFORMED BY: [address] [place] [address] PATHOLOGIST [employer]CAN[employer] F[employer]ER UNIT OPERATOR NEIDA GOMES M.D. Performed By: #### U RDS #### [address] Cocaine Screen,Urine Negative Normal Negative [facility] Comment on above: Performed By: #### U RDS #### [place] [address] [place] Opiate Screen,Urine Negative Normal Negative [facility] Comment on above: Performed By: #### U RDS #### [place] [address] [place] Phencyclidine Screen,Urine Negative Normal Negative [facility] Comment on above: Performed By: #### U RDS #### [address] Glucose Poct Glucometerson 0 06-29-2023 Glucose [Mass/Vol] 275 mg/dL Normal [facility] Comment on above: Result Comment: [facility] Glucose Reference Range is dependent on time and content of last meal. Glucose of more than 200 mg/dL in a nonstressed, ambulatory subject supports the diagnosis of Diabetes Mellitus. PERFORMED BY: [place] [address] PATHOLOGIST V[employer]CAN[employer] F[employer]ER UNIT OPERATOR NEIDA GOMES M.D. Performed By: #### G LULS #### Point of Care testing , Opiates [Presence] in Urine by Screen methodOrdered By: MELINA ARIAS on 06-29-2023 Opiates Screen Ql (U) Negative Negative [facility] Phencyclidine Screen Ql (U)O rdered By: MELINA ARIAS on 06-29-2023 Phencyclidine Ql (U) Negative Negative [facility] XR chest 1V portableon 06-28 XR chest 1V portable [facility] [place] [address] [place] [address] XRay Report Signed Patient: Jose Gee MR#: [id number] : 1970 Acct:[id number] Age/Sex: 53 / F ADM Date: 06/29/23 Loc: [place] Room: Type: [facility] Attending Dr: Kai Vidal DO Copies to: Kai Vidal DO Ordering Provider: Kai Vidal DO Date of Service: 06/29/23 XR/XR chest 1V portable: inspire insertion XR chest 1V portable 06/29/2023 10:35 AM SIGNS AND SYMPTOMS: inspire insertion pt is in pacu PROTOCOL: Frontal radiograph of the chest COMPARISON: None FINDINGS: The trachea is midline. A stimulator is present on the right extending into the heights of the neck. The heart and mediastinal structures are within normal limits. The lung parenchyma is clear. No pneumothorax. The bony thorax is intact. Degenerative changes are noted in the shoulders and thoracic spine. XR/XR chest 1V portable IMPRESSION: A stimulator is present on the right extending into the heights of the neck. No pneumothorax. No acute cardiopulmonary pathology. Impression dictated by: Ehsan Lora M.D.06/29/2023 11:02 AM Dictation Location: [employer] Transcribed By: [facility] 06/29/23 1102 Dictated By: Ehsan Lora II, MD 06/29/23 1054 Signed By: 06/29/23 1102 Normal [facility] ECG 12-Leadon 06-17-2023 ECG 12-Lead [id number]#[id number] Normal [facility] Basic Metabolic Panelon GFR/1.73 sq M.predicted MDRD (S/P/Bld) [Vol rate/Area] mL/min/{1.73_m2} Normal [facility] Comment on above: Performed By: #### B MP #### [address] Calcium [Mass/volume] in Ser um or PlasmaOrdered By: Kai Vidal on 06-15-2023 Calcium [Mass/Vol] 9.3 mg/dL Normal 8.6-10.3 [facility] Comment on above: Result Comment: PERF ORMED BY: [place] [address] PATHOLOGIST [employer]CAN[employer] F[employer] UNIT OPERATOR NEIDA GOMES M.D. Performed By: #### B MP #### [place] [address] [place] Carbon dioxide, total [Moles /volume] in Serum or PlasmaOrdered By: Kai Vidal on 06-15-2023 CO2 [Moles/Vol] 29.9 mmol/L Normal 21.0-31.0 [facility] Comment on above: Performed By: #### B MP #### [place] [address] [place] Chloride [Moles/volume] in S abdulaziz or PlasmaOrdered By: Kai Vidal on 06-15-2023 Chloride [Moles/Vol] 103 mmol/L Normal 98-107 [facility] Comment on above: Performed By: #### B MP #### [address] Creatinine [Mass/volume] in Serum or PlasmaOrdered By: Kai Vidal on 06-15-2023 Creatinine [Mass/Vol] 0.81 mg/dL Normal 0.60-1.20 [facility] Comment on above: Performed By: #### B MP #### [address] ECG 12 lead ECGon 06-15-2023 ECG 12 lead ECG [facility] [address] [place] [address] [place] [address] Electrocardiograp h Report Signed Patient: Jose Gee MR#: [id number] : 1970 Acct:[id number] Age/Sex: 53 / F ADM Date: 06/15/23 Loc: Room: Type: [facility] Attending Dr: Kai Vidal DO Ordering Provider: Kai Vidal DO Date of Service: 06/15/2303/09/1352 ECG/ECG 12 lead ECG: surgery 06/28 Copies to: Test Reason : Blood Pressure : / mmHG Vent. Rate : 083 BPM Atrial Rate : 083 BPM P-R Int : 122 ms QRS Dur : 076 ms QT Int : 370 ms P-R-T Axes : 054 025 030 degrees QTc Int : 434 ms Normal sinus rhythm Normal ECG When compared with ECG of 23-AUG-2018 13:43, No significant change was found Confirmed by RAVEN AMES [facility], ASHLEY ([id number]) on 06/15/2023 3:23:17 PM Referred By: YOUNG Electronically Signed By:ASHLEY CARBAJAL MD [facility] Transcribed By: MUS Signed By Ashley Carbajal MD, [facility] 06/15/23 1523 Normal [facility] Glucose [Mass/volume] in Ser um or PlasmaOrdered By: Kai Vidal on 06-15-2023 Glucose [Mass/Vol] 348 mg/dL High 70-100 [facility] Comment on above: ADA recommended refe rence rangeRandom Glucose Reference Range is dependent on time and content of last meal. Glucose of more than 200 mg/dL in a nonstressed, ambulatory subject supports the diagnosis of Diabetes Mellitus. Result Comment: [place] [facility] Glucose Reference Range is dependent on time and content of last meal. Glucose of more than 200 mg/dL in a nonstressed, ambulatory subject supports the diagnosis of Diabetes Mellitus. ADA recommended reference range Performed By: #### B MP #### [facility] [address] No Panel InformationOrdered By: Kai Vidal on 06-15-2023 Estimated GFR (CKD-EPI) > 60.0 mL/Min [facility] Creatinine Clearance (Chem N/A [facility] Potassium [Moles/volume] in Serum or PlasmaOrdered By: Kai Vidal on 06-15-2023 Potassium [Moles/Vol] 4.5 mmol/L Normal 3.5-5.1 [facility] Comment on above: Performed By: #### B MP #### [facility] [address] Serum or plasma anion gap de terminationOrdered By: Kai Vidal on 06-15-2023 Anion gap [Moles/Vol] 9.6 mmol/L Normal 6.0-15.0 [facility] Comment on above: Performed By: #### B MP #### [facility] [address] [place] [id number] [facility] Sodium [Moles/volume] in Ser um or PlasmaOrdered By: Kai Vidal on 06-15-2023 Sodium [Moles/Vol] 138 mmol/L Normal 136-145 [facility] Comment on above: Performed By: #### B MP #### [facility] [address] [place] [id number] [facility] Urea nitrogen [Mass/volume] in Serum or PlasmaOrdered By: Kai Vidal on 06-15-2023 Urea nitrogen [Mass/Vol] 18 mg/dL Normal 7-25 [facility] Comment on above: Performed By: #### B MP #### [facility] [address] Chest, Low Dose Screening on 04-13-2023 CT Chest, Low Dose Screening Exam Date/Time: 04/11/2023 17:07 EST Reason for Exam: Z87.891;Screening Report IMPRESSION: LUNG RADS CATEGORY 1, NEGATIVE. CONTINUE ANNUAL SCREENING WITH LOW DOSE CT IN 12 MONTHS. CLINICAL HISTORY: Screening, Z87.891 COMMENT: Unenhanced images were obtained per the low dose screening protocol. The thoracic aorta is normal in diameter, without evidence of aneurysm. The heart is normal in size. There is coronary artery calcification. There is a small pericardial effusion. No mediastinal nor hilar lymphadenopathy is noted. No infiltration, no lung mass, nor pleural effusion is evident. All CT scans at this facility use dose modulation, iterative reconstruction, and/or weight based dosing when appropriate to reduce radiation dose to as low as reasonably achievable. Ordering Provider: Andreina Thao FINAL REPORT Dictated: 04/13/2023 10:55 am Roger Morrison M.D. Signed (Electronic Signature): 04/13/2023 10:55 am Signed by: Roger Morrison M.D. Transcribed by: ÁNGEL Technologist: REESE [facility] Consent for Treatmenton 03-18 Consent for Treatment [id number]#[id number] [facility] Patient Correspondenceon Patient Correspondence [id number]#[id number] Normal [facility] Family Medicine Office/Clini c Noteon 03-31-2023 Family Medicine Office/Clinic Note Chief Complaint handicap placard HPI Staff Pt here for an Rx for a handicap Placard for her arms and her legs hurting. Pt would also lie her mouth looked at due to sores. Had them about a week now. Has noticed she's been biting her cheeks. History of Present Illness JOSE GEE is a 52 Years White Female presenting to clinic today for wanting handicap placard patient wants handicap placard stating that her previous PCP has prescribed it in the past patient does not use any ambulatory devices she does not have COPD or other severe lung diseases she does not have cardiac disease no arthritis or other orthopedic conditions no legally blind or visually impaired no neurological conditions having sores in her mouth x1 week keeps biting her right cheek which makes the sore worse Review of Systems PHQ Score Initial Depression Screen Score: 2 SCORE Negative except as above Physical Exam Vitals & Measurements HR: 86(Peripheral) BP: 130/80 SpO2: 99% HT: 63 in HT: 160 cm WT: 85.4 kg WT: 187.88 lb BMI: 33.36 Gen: No acute distress, sitting comfortably in chair HEENT: Aphthous ulcers on bilateral cheeks with petechia at the ulcers with bite ziegler. No abscesses or sign of infection Psych: Pleasant, normal mood, normal affect Neuro: CN II-XII intact, normal gait Assessment/Plan patient asking for handicap placard today states her previous PCP gave it to her and needs another one reviewed [facility] handicap placard criteria patient does not qualify for placard at this time patient does not use any ambulatory devices she does not have COPD or other severe lung diseases she does not have cardiac disease no arthritis or other orthopedic conditions no legally blind or visually impaired no neurological conditions patient was mainly going to use it to carry groceries to the car 1. Aphthous ulcer of mouth (K12.0: Recurrent oral aphthae) dexamethasone liquid prescribed patient to swish and spit after 3-5 minutes she cannot eat or drink for at least 30 minutes after Ordered: benzocaine topical, See Instructions, 15 gm, Refill(s) 1, Apply to affected area BID, [facility]/pharmacy #[id number], 160, cm, 03/31/23 14:00:00 EST, Height/Length Dosing, 85.4, kg, 03/31/23 14:00:00 EST, Weight Dosing dexamethasone, 4 mg = 4 mL, Oral, BID, Swish and spit after 2 minutes. No food or drink for 30 minutes after, X 7 day(s), # 56 mL, Refills(s) 0, Pharmacy: [facility]/pharmacy #[id number], 160, cm, 03/31/23 14:00:00 EST, Height/Length Dosing, 85.4, kg, 03/31/23 14:00:00 EST, Weig... 2. BMI 33.0-33.9,adult (Z68.33: Body mass index [BMI] 33.0-33.9, adult) The standard range for ages 18 and older is >=18.5 and < 25 kg/m2. Your BMI today was above this range, this falls in the overweight to obese category and there are medical benefits to weight loss. We can offer counselling, referral, and/or medical support in addressing this problem. Your BMI and weight management will be followed at subsequent visits. 3. Smoker (F17.200: Nicotine dependence, unspecified, uncomplicated) declines quitting at this time Follow-up With When Contact Information Andreina Thao MD, FAM, MED In 6 months 01/24/[address] [place] [phone] Business (1) Additional Instructions: Problem List/Past Medical History Ongoing Alcoholism in remission Anxiety and depression Arthritis Chronic GERD Cocaine abuse in remission Dilated renal pelvis DR (diabetic retinopathy) Flank pain HLD (hyperlipidemia) Hospital discharge follow-up HTN (hypertension) Major depressive disorder, recurrent Personal history of nicotine dependence Reactive airway disease Rhinovirus infection Smoker Type 2 diabetes mellitus with hyperlipidemia Historical Depression Hemorrhoids Morbid obesity due to excess calories Procedure/Surgica l History Cataract surgery (08/02/2019), Tubal ligation (03/04/1999), Carpal tunnel, Hernia, Shoulder. Medications Albuterol (Eqv-ProAir HFA) 90 mcg/inh inhalation aerosol, 2 puff(s), Inhalation, q6hr, 3 refills aripiprazole 10 mg Tab, 10 mg= 1 tab(s), Oral, Daily Blood pressure monitor device, See Instructions busPIRone 10 mg Tab, 10 mg= 1 tab(s), Oral, BID CeleXA 40 mg Tab, 40 mg= 1 tab(s), Oral, Daily cloNIDine 0.1 mg tab, 0.1 mg= 1 tab(s), Oral, Daily dexamethasone 1 mg/mL oral concentrate, 4 mg= 4 mL, Oral, BID dicyclomine 20 mg Tab, 20 mg= 1 tab(s), Oral, TID fluconazole 150 mg Tab, See Instructions fluticasone propionate, 50 mcg, Inhalation, Daily furosemide 20 mg Tab, 20 mg= 1 tab(s), Oral, Daily gabapentin 600 mg Tab, 600 mg= 1 tab(s), Oral, Daily glimepiride 2 mg Tab, 4 mg= 2 tab(s), Oral, BID, 2 refills hydrocortisone Top 2.5% Crm, 1 luci, Topical, BID, 1 refills hydrOXYzine hydrochloride 50 mg oral tablet ibuprofen 800 mg Tab, 800 mg= 1 tab(s), Oral, TID ibuprofen 800 mg Tab, 800 mg= 1 tab(s), Oral, q8hr Invokana 300 mg oral tablet, 300 mg= 1 tab(s), Oral, Daily, 3 ref (more content not included)... [facility] Comment on above: Result Comment: Elec tronically Signed By: Andreina Thao MD\.br\Date and Time Signed: 03/31/23 14:41 EST Consent for Flu Vaccineon Consent for Flu Vaccine [id number]#[id number] [facility] Screenson 03-29-2023 Screens [id number]#[id number] [facility] Ambulatory Visit Summaryon 0 03-28-2023 Ambulatory Visit Summary JOES GEE :1970 Visit Date:03/28/2023 Ambulatory Visit Instructions Your Diagnosis Annual visit for general adult medical examination without abnormal findings Major depressive disorder, recurrent Alcoholism in remission Cocaine abuse in remission HTN (hypertension) HLD (hyperlipidemia), Hyperlipidemia, unspecified Type 2 diabetes mellitus with hyperlipidemia Encounter for vaccination Obesity (BMI 30.0-34.9) Personal history of nicotine dependence Your Care Team Attending Physician - Sina Thao MD Primary Care Physician - Andreina Thao MD This Is Your Medications List Misc Prescription (Blood pressure monitor device) Misc Prescription (sensor) albuterol (Albuterol (Eqv-ProAir HFA) 90 mcg/inh inhalation aerosol) aripiprazole (aripiprazole 10 mg Tab) busPIRone (busPIRone 10 mg Tab) canagliflozin (Invokana 300 mg oral tablet) citalopram (CeleXA 40 mg Tab) clonidine (cloNIDine 0.1 mg tab) dicyclomine (dicyclomine 20 mg Tab) fluconazole (fluconazole 150 mg Tab) fluticasone (fluticasone propionate) furosemide (furosemide 20 mg Tab) gabapentin (gabapentin 600 mg Tab) glimepiride (glimepiride 2 mg Tab) hydrOXYzine (hydrOXYzine hydrochloride 50 mg oral tablet) hydrocortisone topical (hydrocortisone Top 2.5% Crm) ibuprofen (ibuprofen 800 mg Tab) ibuprofen (ibuprofen 800 mg Tab) lisinopril (lisinopril 2.5 mg Tab) metformin (metformin 500 mg ER Tab) multivitamin mupirocin topical (mupirocin Top 2% Crm) naltrexone (Vivitrol 380 mg intramuscular injection, extended release) omeprazole (omeprazole 40 mg Cap-DR) potassium chloride (Potassium Chloride (Eqv-K-Tab) 10 mEq oral tablet, extended release) rosuvastatin (rosuvastatin 40 mg Tab) semaglutide (Rybelsus 14 mg oral tablet) sitagliptin (Januvia 50 mg Tab) trazodone (traZODONE 50 mg Tab) Procedures Performed Cataract surgery (08/02/2019), Tubal ligation (03/04/1999), Carpal tunnel, Hernia, Shoulder. Discharge Vitals Height 161 cm Height 63 in Weight 87.54 kg Weight 192.588 lb BMI 33.77 What to do next Scheduled Follow-Up Appointments Tuesday 1:20 PM EDT With: Andreina Thao MD Where: [facility] [address] [place] [address]- \.br\ You Need to Complete the Following\.br\ CT Chest, Low Dose Screening, 03/28/23, Routine, Order for future visit, Transport Mode: Ambulatory, Reason: Screening, Yes, Yes, Yes, 1, 30, Yes, 0, [id number], No, Personal history of nicotine dependence, pp_set_radiology _subspecialty, Not Required, [facility]\.br\ Medications\.br\ What How Much When Why Instructions\.br \ Unchanged albuterol (Albuterol (Eqv-ProAir HFA) 90 mcg/ inh inhalation aerosol) 2 Puffs Inhalation Every 6 hours Reactive airway disease\.br\ Unchanged aripiprazole (aripiprazole 10 mg Tab) 1 Tablets By Mouth Every day\.br\ Unchanged busPIRone (busPIRone 10 mg Tab) 1 Tablets By Mouth 2 times a day\.br\ Unchanged canagliflozin (Invokana 300 mg oral tablet) 1 Tablets By Mouth Every day Type 2 diabetes mellitus\.br\ Unchanged citalopram (CeleXA 40 mg Tab) 1 Tablets By Mouth Every day\.br\ Unchanged clonidine (cloNIDine 0.1 mg tab) 1 Tablets By Mouth Every day\.br\ Unchanged dicyclomine (dicyclomine 20 mg Tab) 1 Tablets By Mouth 3 times a day\.br\ Unchanged fluconazole (fluconazole 150 mg Tab) See instructions Yeast infection Take one now, take 2nd tab in 72 hours of symptoms persist \.br\ Unchanged fluticasone (fluticasone propionate) 50 Microgram Inhalation Every day\.br\ Unchanged furosemide (furosemide 20 mg Tab) 1 Tablets By Mouth Every day\.br\ Unchanged gabapentin (gabapentin 600 mg Tab) 1 Tablets By Mouth Every day\.br\ Unchanged glimepiride (glimepiride 2 mg Tab) 2 Tablets By Mouth 2 times a day\.br\ Unchanged hydrocortisone topical (hydrocortisone Top 2.5% Crm) 1 Application Topical 2 times a day Skin rash\.br\ Unchanged hydrOXYzine (hydrOXYzine hydrochloride 50 mg oral tablet) Take 1-2 tabs at bedtime as needed \.br\ Unchanged ibuprofen (ibuprofen 800 mg Tab) 1 Tablets By Mouth 3 times a day\.br\ Unchanged ibuprofen (ibuprofen 800 mg Tab) 1 Tablets By Mouth Every 8 hours\.br\ Unchanged lisinopril (lisinopril 2.5 mg Tab) 1 Tablets By Mouth Every day\.br\ Unchanged metformin (metformin 500 mg ER Tab) 2 Tablets By Mouth 2 times a day Type 2 diabetes mellitus\.br\ Unchanged Misc Prescription (Blood pressure monitor device) See instructions Check blood pressure daily \.br\ Unchanged Misc Prescription (sensor) See instructions dexcom G7 sensor \.br\ Unchanged multivitamin See instructions\.br \ Unchanged mupirocin topical (mupirocin Top 2% Crm) See instructions\.br \ Unchanged naltrexone (Vivitrol 380 mg intramuscular injection, extended release) 380 Milligram Intramuscular Every 4 weeks\.br\ Unchanged omeprazole (omeprazole 40 mg Cap-DR) 1 Capsules By Mouth 2 times a day Chronic GERD\.br\ Unchanged potassium chloride (Potassium Chloride (Eqv-K-Tab) 10 mEq oral tablet, extended release) 1 Tablets By Mouth Every day\.br\ Unchanged rosuvastatin (rosuvastatin 40 mg Tab) 1 Tablets By Mouth Every day\.br\ Unchanged semaglutide (Rybelsus 14 mg oral tablet) 1 Tablets By Mouth Every day Type 2 diabetes mellitus with hyperlipidemia\. br\ Unchanged sitagliptin (Januvia 50 mg Tab) 1 Tablets By Mouth Every day Type 2 diabetes mellitus\.br\ Unchanged trazodone (traZODONE 50 mg Tab) 1 Tablets By Mouth Once a day (at bedtime)\.br\ Allergies\.br\ No Known Allergies\.br\ Problems\.br\ Ongoing - Any problem that you are currently receiving treatment for.\.br\ Alcoholism in remission\.br\ Anxiety and depression\.br\ Arthritis\.br\ Chronic GERD\.br\ Cocaine abuse in remission\.br\ Dilated renal pelvis\.br\ DR (diabetic retinopathy)\.br \ Flank pain\.br\ HLD (hyperlipidemia) \.br\ Hospital discharge follow-up\.br\ HTN (hypertension)\. br\ Major depressive disorder, recurrent\.br\ Personal history of nicotine dependence\.br\ Reactive airway disease\.br\ Rhinovirus infection\.br\ Smoker\.br\ Type 2 diabetes mellitus with hyperlipidemia\. br\ Historical - Any problem that you are no longer receiving treatment for.\.br\ Depression\.br\ Hemorrhoids\.br\ Morbid obesity due to excess calories\.br\ Patient Survey\.br\ You may receive a survey via text or e-mail asking about your office visit. Please share your experience with us by completing your survey. We appreciate your feedback and thank you for choosing us for your care.\.br\ \.br\ [facility] Family Medicine Office/Clini c Noteon 03-28-2023 Family Medicine Office/Clinic Note Chief Complaint Medicare wellness subsequent Review of Systems PHQ Score Initial Depression Screen Score: 2 SCORE Physical Exam Vitals & Measurements HT: 161 cm HT: 63 in WT: 87.54 kg WT: 192.588 lb BMI: 33.77 Assessment/Plan 1. Annual visit for general adult medical examination without abnormal findings (Z00.00: Encounter for general adult medical examination without abnormal findings) The patient was given a customized and personalized print out of all the current AHRQ USPSTF?s recommendations for preventative services and all current CDC recommended immunizations, relevant risk recommendations and the following patient brochures were given. Reviewed What can I expect during my Medicare preventative care visit CDC-Falls Prevention and home safety screening reviewed. Patient denies any falls in last 12 months, voices no worry about falling, exhibits no problems with sitting and standing. Pt voices understanding with keeping walk way area free of clutter to prevent tripping and/or falling. [place] Advance Directives discussed and has paperwork Patient denies any problems with ADL?s and Instrumental ADL?s. Cognitive screening completed with memory and clock face drawing. Immunization Record reviewed with the patient. Discussed Shingrix vaccine with educational handout and availability. COVID vaccines have been administered, immunization record is up to date. Allergies and medications reviewed and up to date. Patient denies concerns with taking medication as prescribed, reviewed OTC medications with patient with medication list up to date. Colonoscopy up to date DEXA scan and Mammogram ordered by Dr. Yeager and is scheduling at [facility] Reviewed concerns with bladder control over past 6 months with no concerns. Reviewed pain symptoms with patient:chronic pain in hands, arms and back Reviewed all outside providers that patient follows. Last visit summary notes available in chart and/or have been requested. Follow up scheduled 08/2023 AWV has been scheduled, 03/2024 Medicare provides yearly screening for alcohol and depression concerns. This is completed during our Medicare wellness visit for those who do not have a current diagnosis of depression or concerns with alcohol use. I spent a total of 30 minutes on this date of service which included preparing to see the patient, face to face patient care, completing clinical documentation, obtaining and/or reviewing separately obtained history, counseling and educating the patient with handouts. Explanations were provided with reviewing questionnaires. AUDIT risk assessment screening completed, risk score (8) with patient concerns with use. Completed PHQ-2 risk assessment for depression with risk score (2), negative findings. Patient has been reminded to notify the provider if there would be a change or concerns with symptoms with fear, unable to sleep, worrying too much or feeling down and/or sad with lost of interest with daily activities. Will continue to monitor with screening yearly during Medicare wellness visits. 2. Major depressive disorder, recurrent (F33.9: Major depressive disorder, recurrent, unspecified) Patient taking Celexa, Aripiprazole, buspar, invokana daily, voices medication is effective. Follows up with PCP with medication management and symptom control. PHQ-9 risk assessment completed with negative findings. Total risk score(). Patient denies any suicidal ideations at this time. Reviewed additional signs/symptoms to monitor for and report to provider. 3. Alcoholism in remission (F10.21: Alcohol dependence, in remission) Pt. was sober and in remission for 8 years and then started to drink again because of a live in boyfriend and stress triggers. pt .has not been sober for 1 month, and is attending meetings again multiple times a week and talks with her sponsor daily. 4. Cocaine abuse in remission (F14.11: Cocaine abuse, in remission) pt. has been sober 8 years, in remission. Pt. continues on medications to help her. 5. HTN (hypertension) (I10: Essential (primary) hypertension) Patient is taking Lisinopril daily as directed. Does monitor BP pressure at home. HTN stoplight reviewed with BP goal to be <140/90. Reviewed different factors that can alter blood pressure readings. Education handout provided with s/s to monitor for and report to provider. Patient is encouraged to increase portions of fruit, vegetables, fiber and increase exercise as much as tolerable. Reviewed importance with monitoring foods high in salt content and encouraged to limit intake, if unsure encouraged to discuss with their PCP. Encouraged to eat more chicken, fish and lean white meats and limits red meats in diet. Discussed importance with keeping BP under good control to reduce CVA risk factors. Will continue to f/u with PCP during office visits and as needed. 6. HLD (hyperlipidemia), (E78.5: Hyperlipidemia, unspecified)Hyper lipidemia, unspecified Reviewed healthy lifestyle with low fat diet and exercise regimen (more content not included)... Normal [facility] Comment on above: Result Comment: Elec tronically Signed By: Sara Klein CNP\.br\Date and Time Signed: 03/28/23 18:51 EST\.br\Electronically Co-Signed By: Nesha Escobar\.br\Date and Time Co-Signed: 03/28/23 15:54 EST BMPon 03-24-2023 Anion gap [Moles/Vol] 13 mmol/L Normal 6-16 [facility] Comment on above: Performed By: #### 1 [id number] ####[facility] [address] [place] [address] BUN/Creat Ratio 16 No Units Normal 10-20 [facility] Comment on above: Performed By: #### 1 [id number], [id number] ####[facility] [address] [place] [address] Calcium [Mass/Vol] 9.4 mg/dL Normal 8.9-11.1 [facility] Comment on above: Performed By: #### 1 [id number], [id number] ####[facility] [address] [place] [address] Chloride [Moles/Vol] 105 mmol/L Normal 101-111 [facility] Comment on above: Performed By: #### 1 [id number], [id number] ####[facility] [address] [place] [address] CO2 [Moles/Vol] 25 mmol/L Normal 21-31 [facility] Comment on above: Performed By: #### 1 [id number], [id number] ####[facility] [address] [place] [address] Creatinine [Mass/Vol] 0.9 mg/dL Normal 0.5-1.3 [facility] Comment on above: Performed By: #### 1 [id number], [id number] ####[facility] [address] [place] [address] Glucose [Mass/Vol] 207 mg/dL High 55-199 [facility] Comment on above: Performed By: #### 1 [id number], [id number] ####[facility] [address] [place] [address] Potassium [Moles/Vol] 4.5 mmol/L Normal 3.5-5.3 [facility] Comment on above: Performed By: #### 1 [id number], [id number] ####[facility] [address] [place] [address] Sodium [Moles/Vol] 138 mmol/L Normal 135-145 [facility] Comment on above: Performed By: #### 1 [id number], [id number] ####[facility] [address] [place] [address] Urea nitrogen [Mass/Vol] 14 mg/dL Normal 5-21 [facility] Comment on above: Performed By: #### 1 [id number], [id number] ####[facility] [address] [place] [address] CHEMISTRYOrdered By: SYSTEM SYSTEM on 03-24-2023 Anion gap [Moles/Vol] 13 mmol/L Normal 6 - 16 mEq/L R emisol Chem Calcium [Mass/Vol] 9.4 mg/dL Normal 8.9 - 11.1 mg/dL Remisol Chem Chloride [Moles/Vol] 105 mmol/L Normal 101 - 111 mmol/ L Remisol Chem CO2 [Moles/Vol] 25 mmol/L Normal 21 - 31 mmol/L Remis ol Chem Creatinine [Mass/Vol] 0.9 mg/dL Normal 0.5 - 1.3 mg/d L Remisol Chem eGFR 77 mL/min/1.73 m2 Normal >=59mL/min /1.73 m2 Remisol Chem Glucose [Mass/Vol] 207 mg/dL High 55 - 199 mg/dL Re misol Chem Potassium [Moles/Vol] 4.5 mmol/L Normal 3.5 - 5.3 mmol /L Remisol Chem Sodium [Moles/Vol] 138 mmol/L Normal 135 - 145 mmol/L Remisol Chem Urea nitrogen [Mass/Vol] 14 mg/dL Normal 5 - 21 mg/dL Remisol Chem Urea nitrogen/Creatinine [Mass ratio] 16 mg/mg Normal 10 - 20 Remisol Chem Consent for Treatmenton Consent for Treatment [id number] Normal [facility] BMPon 03-24-2023 [facility] AGAP 13 [facility] BUN/CREAT RATIO 16 [facility] Interpretation and review of laboratory results Abnormal [facility] Original Ordering Provider: [facility] EGFRon 03-24-2023 [facility] EGFR 77 - PINF [facility] Order added by Discern Expert. Original Ordering Provider: DO Kai Vidal [facility] No Panel Informationon 03-24 [facility] Physician Orderon 03-24-2023 Physician Order [id number] Normal [facility] eGFRon 03-24-2023 eGFR 77 mL/min/1.73 m2 Normal >=59 [facility] Comment on above: Order Comment: Order added by Discern Expert. Performed By: #### 1 [id number], [id number] ####[facility] [address] [place] [address] Pulmonary Function Studieson 03-03-2023 Pulmonary Function Studies PULMONARY FUNCTION TEST: 02/22/2023 REQUESTING PHYSICIAN: Andreina Thao M.D. REASON FOR TESTING: Reactive airway disease. Spirometry results are acceptable and reproducible. FVC was 3.05 liters or 93% of predicted. FEV1 was 2.46 liters or 94% of predicted with a ratio of 81%. Lung volumes showed a total lung capacity of 96% of predicted, residual volume of 101% of predicted with a ratio of 37%. Diffusion capacity of carbon monoxide was 88% of predicted and when adjusted to alveolar volume at 92% of predicted. IMPRESSION: Pulmonary function test results are within normal range including spirometry, lung volumes, and diffusion capacity. READ BY: Savannah Oviedo M.D. ca Dictated: 02/25/2023 [id number] Transcribed: 02/25/2023 cc:Andreina Thao M.D. Normal [facility] Comment on above: Result Comment: Elec tronically Signed By: Preet AMES, Savannah Frank\.br\Date and Time Signed: 03/03/23 23:25 EST CHEMISTRYOrdered By: Lab ROP User on 11-16-2022 Glucose [Mass/Vol] 133 mg/dL High 55 - 99 mg/dL [facility] C POC Subsection Comment on above: Result Comment: Noti sigifredo RN/ POC Username MAGDALENO HIGUERA Invalid Interpretation Code [facility] POC Subsection Sodium [Moles/Vol] 967624208846 mmol/L Invalid Interpretation Code [facility] POC Subsection Sodium [Moles/Vol] 799894780 mmol/L Invalid Interpretation Code [facility] POC Subsection CHEMISTRYOrdered By: SYSTEM SYSTEM on 11-16-2022 Anion gap [Moles/Vol] 8 mmol/L Normal 6 - 16 mEq/L F [facility] Remisol Calcium [Mass/Vol] 9.3 mg/dL Normal 8.9 - 11.1 mg/dL [facility] Remisol Chloride [Moles/Vol] 113 mmol/L High 101 - 111 mmol/ L [facility] Remisol CO2 [Moles/Vol] 24 mmol/L Normal 21 - 31 mmol/L [facility] Remisol Creatinine [Mass/Vol] 0.8 mg/dL Normal 0.5 - 1.3 mg/d L [facility] Remisol GFR/1.73 sq M.predicted among non-blacks MDRD (S/P/Bld) [Vol rate/Area] 89 mL/min/1.73 m2 Normal >=59mL/min/1.73 m2 [facility] Chem S Comment on above: Interpretive Data: C hronic kidney disease could be indicated at eGFR's of less than 60 mL/min/1.73m2. Kidney failure is indicated at less than 15 mL/min/1.73m2. Glucose [Mass/Vol] 145 mg/dL Normal 55 - 199 mg/dL [facility] Remisol Comment on above: Interpretive Data: I f this glucose result represents a fasting glucose, interpretation should refer to the following reference range: 55-99 mg/dL Potassium [Moles/Vol] 4.0 mmol/L Normal 3.5 - 5.3 mmol /L [facility] Remisol Sodium [Moles/Vol] 141 mmol/L Normal 135 - 145 mmol/L [facility] Remisol Urea nitrogen [Mass/Vol] 25 mg/dL High 5 - 21 mg/dL [facility] Remisol Urea nitrogen/Creatinine [Mass ratio] 31 mg/mg High 10 - 20 [facility] Remisol HEMATOLOGYOrdered By: HitchedPic SYSTEM on 11-16-2022 Basophils/100 WBC (Bld) 0.3 % Normal 0.0 - 2.0 % [facility] HemeAutoSS Basophils/Leukocytes Auto (Bld) [Pure # fraction] 0.0 E9/L Normal 0.0 - 0.2 E9/L [facility] HemeAutoSS Eosinophils/100 WBC (Bld) 0.2 % Normal 0.0 - 8.0 % [facility] HemeAutoSS Eosinophils/Leukocytes Auto (Bld) [Pure # fraction] 0.0 E9/L Normal 0.0 - 0.5 E9/L [facility] HemeAutoSS Lymphocytes/100 WBC (Bld) 17.7 % Normal 14.0 - 50.0 % [facility] HemeAutoSS Lymphocytes/Leukocytes Auto (Bld) [Pure # fraction] 1.3 E9/L Normal 1.0 - 4.0 E9/L [facility] HemeAutoSS Monocytes/100 WBC (Bld) 6.2 % Normal 4.0 - 14.0 % [facility] HemeAutoSS Monocytes/Leukocytes Auto (Bld) [Pure # fraction] 0.5 E9/L Normal 0.2 - 1.0 E9/L [facility] HemeAutoSS Neutrophils/100 WBC (Bld) 75.6 % High 36.0 - 75.0 % [facility] HemeAutoSS Neutrophils/Leukocytes Auto (Bld) [Pure # fraction] 5.8 E9/L Normal 2.0 - 7.5 E9/L [facility] HemeAutoSS HEMATOLOGYOrdered By: Antonio Medina on 11-16-2022 Erythrocyte distribution width (RBC) [Ratio] 15.0 % High 10.9 - 14.2 % [facility] HemeAutoSS Hematocrit (Bld) [Volume fraction] 39.0 % Normal 34.0 - 46.0 % [facility] HemeAutoSS Hemoglobin (Bld) [Mass/Vol] 13.2 g/dL Normal 12.0 - 16.0 gm/dL [facility] HemeAutoSS MCH (RBC) [Entitic mass] 30.4 pg Normal 27.0 - 34.0 pg [facility] HemeAutoSS MCHC (RBC) [Mass/Vol] 33.8 g/dL Normal 31.4 - 36.0 gm/dL [facility]eAutoSS MCV (RBC) [Entitic vol] 90.0 fL Normal 80.0 - 100.0 fL [facility]eAuto[facility] Platelet mean volume (Bld) [Entitic vol] 8.7 fL Normal 6.4 - 10.8 fL [facility] HemeAutoSS Platelets (Bld) [#/Vol] 206.0 E9/L Normal 150.0 - 500.0 E9/L [facility] HemeAutoSS RBC (Bld) [#/Vol] 4.3 E12/L Normal 4.3 - 5.9 E12/L [facility] HemeAutoSS WBC corrected for nucl RBC Auto (Bld) [#/Vol] 7.6 E9/L Normal 4.0 - 11.0 E9/L [facility] HemeAutoSS CHEMISTRYOrdered By: Lab ROP User on 11-15-2022 Glucose [Mass/Vol] 349 mg/dL High 55 - 99 mg/dL [facility] C POC Subsection Comment on above: Result Comment: Juan Carlos mei RN/ POC Username SHARON LI Invalid Interpretation Code [facility] POC Subsection Sodium [Moles/Vol] [id number] mmol/L Invalid Interpretation Code [facility] POC Subsection Sodium [Moles/Vol] 953302622 mmol/L Invalid Interpretation Code [facility] POC Subsection Glucose [Mass/Vol] 269 mg/dL High 55 - 99 mg/dL [facility] C POC Subsection Comment on above: Result Comment: Noti sigifredo HURST/ POC Username BARRY SZYMANSKI Invalid Interpretation Code [facility] POC Subsection Sodium [Moles/Vol] [id number] mmol/L Invalid Interpretation Code [facility] POC Subsection Sodium [Moles/Vol] 914751731 mmol/L Invalid Interpretation Code [facility] POC Subsection CHEMISTRYOrdered By: SYSTEM SYSTEM on 11-15-2022 Anion gap [Moles/Vol] 12 mmol/L Normal 6 - 16 mEq/L F [facility] Remisol Calcium [Mass/Vol] 9.6 mg/dL Normal 8.9 - 11.1 mg/dL [facility] Remisol Chloride [Moles/Vol] 111 mmol/L Normal 101 - 111 mmol/ L [facility] Remisol CO2 [Moles/Vol] 25 mmol/L Normal 21 - 31 mmol/L [facility] Remisol Creatinine [Mass/Vol] 1.0 mg/dL Normal 0.5 - 1.3 mg/d L [facility] Remisol GFR/1.73 sq M.predicted among non-blacks MDRD (S/P/Bld) [Vol rate/Area] 68 mL/min/1.73 m2 Normal >=59mL/min/1.73 m2 [facility] Chem S Comment on above: Interpretive Data: C hronic kidney disease could be indicated at eGFR's of less than 60 mL/min/1.73m2. Kidney failure is indicated at less than 15 mL/min/1.73m2. Glucose [Mass/Vol] 289 mg/dL High 55 - 199 mg/dL [facility] Remisol Comment on above: Interpretive Data: I f this glucose result represents a fasting glucose, interpretation should refer to the following reference range: 55-99 mg/dL Magnesium [Mass/Vol] 2.1 mg/dL Normal 1.3 - 2.4 mg/dL [facility] Remisol Sodium [Moles/Vol] 143 mmol/L Normal 135 - 145 mmol/L [facility] Remisol TSH Qn 0.61 m[IU]/L Normal 0.34 - 5.60 mcIU/mL [facility] Remisol Urea nitrogen [Mass/Vol] 17 mg/dL Normal 5 - 21 mg/dL [facility] Remisol Urea nitrogen/Creatinine [Mass ratio] 17 mg/mg Normal 10 - 20 [facility] Remisol Procalcitonin ng/mL Normal 0.00 - 0.50 ng/mL [facility] Remisol Comment on above: Interpretive Data: < 0.5 ng/mL Low risk of severe sepsis and/or shock >2.0 ng/mL High risk of severe sepsis and/or shock Concentrations under 0.5 ng/mL do not exclude local infections or systemic infections in their initial stages (e.g.. under six hours from onset of illness). PCT concentrations between 0.5 and 2.0 ng/mL should be interpreted with consideration of the patient's history. In this range, it is recommended to retest PCT within 6 to 24 hours. Troponin I.cardiac [Mass/Vol] 3.10 pg/mL Low 10.10 - 27.10 pg/mL [facility] Comment on above: Interpretive Data: T he 95% CI (Confidence Interval) PPV (Positive Predictive Value) for myocardial infarction in females is 38 pg/mL, in males 51 pg/mL. The results should be used in conjunction with clinical conditions of myocardial infarction. (Access High Sensitivity Troponin I Instructions For Use, [employer], September 2017) CHEMISTRYOrdered By: Quincy Calderon on 11-15-2022 HbA1c (Bld) [Mass fraction] 8.0 % High <=5.9% [facility] ChemAutoSS CHEMISTRYOrdered By: Nasrin allred on 11-15-2022 Potassium [Moles/Vol] 5.4 mmol/L High 3.5 - 5.3 mmol /L [facility] Remisol MICRO OTHER TESTSOrdered By: Daja Kidd on 11-15-2022 Influenzae A Ag Negative (11/15/22 2:00 AM) Normal Negative [facility] Man Sero Influenzae B Ag Negative 1 (11/15/22 2:00 AM) Normal Negative [facility] Man Sero Comment on above: Interpretive Data: T est sensitivity and specificity vary for age group, specimen type, antigen types, and prevalence of disease. Test results must be evaluated in conjunction with other clinical data available to the physician. Individuals who received nasally administered Influenza A vaccine may have positive test results up to 3 days after vaccination. CHEMISTRYOrdered By: SYSTEM SYSTEM on 11-14-2022 Troponin I.cardiac [Mass/Vol] 2.60 pg/mL Low 10.10 - 27.10 pg/mL [facility] Comment on above: Interpretive Data: T he 95% CI (Confidence Interval) PPV (Positive Predictive Value) for myocardial infarction in females is 38 pg/mL, in males 51 pg/mL. The results should be used in conjunction with clinical conditions of myocardial infarction. (Access High Sensitivity Troponin I Instructions For Use, [employer], September 2017) Albumin [Mass/Vol] 2.5 g/dL Low 3.3 - 5.0 gm/dL [facility] Albumin/Globulin [Mass ratio] 1.0 {ratio} Low 1.1 - 2.2 [facility] ALP [Catalytic activity/Vol] 44 [iU]/d Normal 21 - 98 Int._Unit/L [facility] ALT No additional P-5'-P [Catalytic activity/Vol] 10 [iU]/d Normal 6 - 46 Int._Unit/L [facility] Anion gap [Moles/Vol] 4 mmol/L Low 6 - 16 mEq/L [facility] AST [Catalytic activity/Vol] 13 [iU]/d Normal 5 - 43 Int._Unit/L [facility] Bilirubin [Mass/Vol] 0.4 mg/dL Normal 0.0 - 1.1 mg/dL [facility] Bilirubin.direct [Mass/Vol] mg/dL Normal 0.1 - 0.4 mg/dL [facility] Bilirubin.indirect [Mass or moles/Vol] Unable to Calculate mg/dL Invalid Interpretation Code 0.1 - 0.9 mg/dL [facility] Calcium [Mass/Vol] 6.3 mg/dL Invalid Interpretation Code 8.9 - 11.1 mg/dL [facility] Comment on above: Result Comment: Crit ical Result S_CA.3 Called to PAPITO LINDSAY AT ER by RUBY CLOUD And Read Back For Confirmation at: 11/14/2022 20:55:58\Critical Result verified by repeat analysis Chloride [Moles/Vol] 120 mmol/L Invalid Interpretation Code 101 - 111 mmol/L [facility] Comment on above: Result Comment: Crit ical Result S_CL:120 Called to PAPITO LINDSAY AT ER by RUBY CLOUD And Read Back For Confirmation at: 11/14/2022 20:55:58\Critical Result verified by repeat analysis CO2 [Moles/Vol] 21 mmol/L Normal 21 - 31 mmol/L [facility] Creatinine [Mass/Vol] 0.6 mg/dL Normal 0.5 - 1.3 mg/d L [facility] GFR/1.73 sq M.predicted among non-blacks MDRD (S/P/Bld) [Vol rate/Area] 109 mL/min/1.73 m2 Normal >=59mL/min/1.73 m2 [facility] Chem S Comment on above: Interpretive Data: C hronic kidney disease could be indicated at eGFR's of less than 60 mL/min/1.73m2. Kidney failure is indicated at less than 15 mL/min/1.73m2. Globulin (S) [Mass/Vol] 2.4 g/dL Normal 1.4 - 4.0 gm/dL [facility] Glucose [Mass/Vol] 106 mg/dL Normal 55 - 199 mg/dL [facility] Comment on above: Interpretive Data: I f this glucose result represents a fasting glucose, interpretation should refer to the following reference range: 55-99 mg/dL Lactate [Mass/Vol] 1.0 mmol/L Normal 0.5 - 2.2 mmol/L [facility] Magnesium [Mass/Vol] 1.3 mg/dL Normal 1.3 - 2.4 mg/dL [facility] Potassium [Moles/Vol] 2.7 mmol/L Invalid Interpretation Code 3.5 - 5.3 mmol/L [facility] Comment on above: Result Comment: Crit ical Result S_K:2.7 Called to PAPITO LINDSAY AT ER by RUBY CLOUD And Read Back For Confirmation at: 11/14/2022 20:55:58\Critical Result verified by repeat analysis\Critical Result S_K:2.7 Called to PAPITO/DEU LINDSAY/FRANC AT ER by RUBY CLOUD And Read Back For Confirmation at: 11/14/2022 20:58:41 Protein [Mass/Vol] 4.9 g/dL Low 6.0 - 7.8 gm/dL [facility] Sodium [Moles/Vol] 142 mmol/L Normal 135 - 145 mmol/L [facility] Troponin I.cardiac [Mass/Vol] 2.60 pg/mL Low 10.10 - 27.10 pg/mL [facility] Comment on above: Interpretive Data: T he 95% CI (Confidence Interval) PPV (Positive Predictive Value) for myocardial infarction in females is 38 pg/mL, in males 51 pg/mL. The results should be used in conjunction with clinical conditions of myocardial infarction. (Access High Sensitivity Troponin I Instructions For Use, [employer], September 2017) Urea nitrogen [Mass/Vol] 12 mg/dL Normal 5 - 21 mg/dL [facility] Urea nitrogen/Creatinine [Mass ratio] 20 mg/mg Normal 10 - 20 [facility] Remisol CHEMISTRYOrdered By: Daja Kidd on 11-14-2022 Natriuretic peptide B (Bld) [Mass/Vol] 32 pg/mL Normal 5 - 80 pg/mL [facility] HemeManSS COAGULATIONOrdered By: Dionne Cloud on 11-14-2022 aPTT Coag (PPP) [Time] 27.9 s Normal 25.1 - 36.5 second(s) [facility] Auto Coag Comment on above: Interpretive Data: P soheila 15 days - 4 weeks 1 - 5 months 6 - 11 months 1 - 5 years 6 - 10 years 11 - 17 years PTT Mean: 35.4 (27.6-45.6) Mean: 33.5 (24.8-40.7) Mean: 32.4 (25.1-40.7) Mean: 31.6 (24.0-39.2) Mean: 31.6 (26.9-38.7) Mean: 31.0 (24.6-38.4) Pediatric Reference ranges were obtained from a study by Fred Pena et al. prepared from 1437 samples obtained at 7 different centers using the same coagulation reagent and instrumentation as [facility]. Currently there are no coagulation studies available worldwide for children to 14 days, and no normal ranges. Heparin therapeutic range (represented by Anti-Factor Xa activity of 0.2 - 0.4 U/mL) corresponds to PTT of 56.6 - 109.0 sec. INR Coag (PPP) [Relative time] 1.2 {INR} Invalid Interpretation Code [facility] Auto Coag Comment on above: Interpretive Data: I NR results are specifically intended to assess patients stabilized on long-term Anticoagulation therapy suggested INR s Less Intensive Anticoagulation 2.0 3.0 Conventional Range 3.0 4.5 PT Coag (PPP) [Time] 13.0 s High 9.4 - 1 2.5 second(s) [facility] Auto Coag Comment on above: Interpretive Data: 1 5 days - 4 weeks 1 - 5 months 6 -11 months 1 5 years 6 10 years 11 -17 years Mean: 11.2 (9.5 12.6) Mean: 11.0 (9.7 12.8) Mean: 11.0 (9.8 13.0) Mean: 11.3 (9.9 13.4) Mean: 11.7 (10.0 14.6) Mean: 11.8 (10.0 - 14.1) Pediatric Reference ranges were obtained from a study by Fred Pena et al. prepared from 1437 samples obtained at 7 different centers using the same coagulation reagent and instrumentation as [facility]. Currently there are no coagulation studies available worldwide for children to 14 days, and no normal ranges. HEMATOLOGYOrdered By: SYSTEM SYSTEM on 11-14-2022 Basophils/100 WBC (Bld) 0.7 % Normal 0.0 - 2.0 % [facility] HemeAutoSS Basophils/Leukocytes Auto (Bld) [Pure # fraction] 0.1 E9/L Normal 0.0 - 0.2 E9/L [facility] HemeAutoSS Eosinophils/100 WBC (Bld) 1.2 % Normal 0.0 - 8.0 % [facility] HemeAutoSS Eosinophils/Leukocytes Auto (Bld) [Pure # fraction] 0.1 E9/L Normal 0.0 - 0.5 E9/L [facility]eAutoSS Lymphocytes/100 WBC (Bld) 13.6 % Low 14.0 - 50.0 % [facility] HemeAutoSS Lymphocytes/Leukocytes Auto (Bld) [Pure # fraction] 1.1 E9/L Normal 1.0 - 4.0 E9/L [facility] HemeAutoSS Monocytes/100 WBC (Bld) 4.8 % Normal 4.0 - 14.0 % [facility] HemeAutoSS Monocytes/Leukocytes Auto (Bld) [Pure # fraction] 0.4 E9/L Normal 0.2 - 1.0 E9/L [facility] HemeAutoSS Neutrophils/100 WBC (Bld) 79.7 % High 36.0 - 75.0 % [facility] HemeAutoSS Neutrophils/Leukocytes Auto (Bld) [Pure # fraction] 6.6 E9/L Normal 2.0 - 7.5 E9/L [facility] HemeAutoSS HEMATOLOGYOrdered By: Jazzy Kidd on 11-14-2022 Erythrocyte distribution width (RBC) [Ratio] 14.1 % Normal 10.9 - 14.2 % [facility] Hematocrit (Bld) [Volume fraction] 34.0 % Normal 34.0 - 46.0 % [facility]eAutoSS Hemoglobin (Bld) [Mass/Vol] 11.6 g/dL Low 12.0 - 16.0 gm/dL [facility]eAutoSS MCH (RBC) [Entitic mass] 30.8 pg Normal 27.0 - 34.0 pg [facility]eAuto[facility] MCHC (RBC) [Mass/Vol] 34.1 g/dL Normal 31.4 - 36.0 gm/dL [facility]eAutoSS MCV (RBC) [Entitic vol] 90.5 fL Normal 80.0 - 100.0 fL [facility]eAuto[facility] Platelet mean volume (Bld) [Entitic vol] 8.7 fL Normal 6.4 - 10.8 fL [facility] HemeAutoSS Platelets (Bld) [#/Vol] 166.0 E9/L Normal 150.0 - 500.0 E9/L [facility]eAutoSS RBC (Bld) [#/Vol] 3.8 E12/L Low 4.3 - 5.9 E12/L [facility] HemeAutoSS WBC corrected for nucl RBC Auto (Bld) [#/Vol] 8.2 E9/L Normal 4.0 - 11.0 E9/L [facility]eAutoSS MICRO OTHER TESTSOrdered By: Nesha Cloud on 11-14-2022 Rapid COV Int NEG Ctl Pass (11/14/22 8:39 PM) Normal [facility] Man Sero Rapid COV Int POS Ctl Pass (11/14/22 8:39 PM) Normal [facility]3] Sero SARS-CoV+SARS-CoV-2 (COVID-19) Ag IA.rapid Ql (Resp) Not Detected 21 (11/14/22 8:39 PM) Normal Not Detected [facility] Man Sero Comment on above: Interpretive Data: Sonia adrian Platter Veritor System for Rapid Detection of SARS-CoV-2 is a chromatographic digital immunoassay intended for the direct and qualitative detection of SARS-CoV-2 nucleocapsid antigens in nasal swabs from individuals who are suspected of COVID-19 by their healthcare provider within the first five days of the onset of symptoms. Negative results should be treated as presumptive, do not rule out SARS-CoV-2 infection and should not be used as the sole basis for treatment or patient management decisions, including infection control decisions. Negative results should be considered in the context of a patient s recent exposures, history and the presence of clinical signs and symptoms consistent with COVID-19, and confirmed with a molecular assay, if necessary, for patient management. For in vitro diagnostic use. In the [place], only for use under an Emergency Use Authorization. In the [place], this test has not been FDA cleared or approved; this test has been authorized by FDA under an EUA for use by authorized laboratories; use by laboratories certified under the CLIA, 42 U.S.C. 263a, that meet requirements to perform moderate, high, or waived complexity tests and at the Point of Care (POC), i.e., in patient care settings operating under a CLIA Certificate of Waiver, Certificate of Compliance, or Certificate of Accreditation. This test has been authorized only for the detection of proteins from SARS-CoV-2, not for any other viruses or pathogens; and, in the [place], this test is only authorized for the duration of the declaration that circumstances exist justifying the authorization of emergency use of in vitro diagnostics for detection and/or diagnosis of the virus that causes COVID-19 under Section 564(b)(1) of the Act, 21 U.S.C. 360bbb-3(b)(1), unless the authorization is terminated or revoked sooner. No Panel InformationOrdered By: [facility] MICROBIOLOGY on 11-14-2022 Blood Culture Charcoal No growth at 1 day. Final to follow at 7 days. [facility] URINALYSISOrdered By: Elsie Cloud on 11-14-2022 Bilirubin Ql (U) Negative (11/14/22 8:46 PM) Normal Negative [facility] UA Auto SS Clarity (U) Clear (11/14/22 8:46 PM) Normal Clear [facility] UA Auto SS Color (U) Yellow (11/14/22 8:46 PM) Normal Yellow [facility] UA Auto SS Epithelial cells.squamous LM.HPF (Urine sed) [#/Area] 3-4 /HPF Normal 0-2/HPF [facility] UA Aut o SS Glucose Test strip (U) [Mass/Vol] 3+ *ABN* (11/14/22 8:46 PM) Invalid Interpretation Code Negative [facility] UA Auto SS Hemoglobin Ql (U) Negative (11/14/22 8:46 PM) Normal Negative [facility] UA Auto SS Ketones (U) [Mass/Vol] Negative (11/14/22 8:46 PM) Normal Negative [facility] UA Auto SS [place].plasma/[place] .RBC (Bld) [Mass ratio] 0-3 /HPF Normal 0-3/HPF [facility] UA Auto SS Nitrite Ql (U) Negative (11/14/22 8:46 PM) Normal Negative [facility] UA Auto SS pH (U) 6.5 *NA* (11/14/22 8:46 PM) Invalid Interpretation Code 5.0 - 9.0 [facility] UA Auto SS Protein (U) [Mass/Vol] Negative (11/14/22 8:46 PM) Normal Negative [facility] UA Auto SS Specific gravity (U) [Rel density] 1.010 *NA* (11/14/22 8:46 PM) Invalid Interpretation Code 1.005 - 1.030 [facility] UA Auto SS UA Spec Desc Clean Catch (11/14/22 8:46 PM) Normal [facility] UA Auto SS Urobilinogen Qn (U) [id number] {Ida'U}/dL Normal 0.0 - 1.0 EU/dL [facility] UA Auto SS WBC Auto Ql (U) Negative (11/14/22 8:46 PM) Normal Negative [facility] UA Auto SS WBC LM.HPF (Urine sed) [#/Area] 0-5 /HPF Normal 0-5/HPF [facility] UA Auto SS Glucose Glucometer (BldC) [M ass/Vol]Ordered By: Luis Castellano on 07-22-2022 Glucose [Mass/Vol] 114 mg/dL [facility] Comment on above: Random Glucose Refer ence Range is dependent on time and content of last meal. Glucose of more than 200 mg/dL in a nonstressed, ambulatory subject supports the diagnosis of Diabetes Mellitus. No Panel InformationOrdered By: Luis Castellano on 07-22-2022 Bedside Glucose Comment Glu2: cleaned meter [facility] A1C HEMOGLOBINon 04-15-2022 HbA1c (Bld) [Mass fraction] 10.5 % [employer] Other HbA1c (Bld) [Mass fraction]o n 04-15-[address] [facility] Other A1C HEMOGLOBINon 11-09-2021 HbA1c (Bld) [Mass fraction] 13.8 % [employer] Other HbA1c (Bld) [Mass fraction]o n 11-09-2021 A1C HEMOGLOBIN CBIT A/S Other A1C HEMOGLOBINon 08-06-2021 HbA1c (Bld) [Mass fraction] 13.1 % [employer] Other HbA1c (Bld) [Mass fraction]o n 08-06-2021 A1C HEMOGLOBIN CBIT A/S Other A1C HEMOGLOBINon 04-22-2021 HbA1c (Bld) [Mass fraction] 10.6 % [employer] Other HbA1c (Bld) [Mass fraction]o n 04-22-2021 A1C HEMOGLOBIN CBIT A/S Other COVID + FLU Quick Testingon 03-04-2021 SARS-CoV-2 (COVID-19) RNA MATT+probe Ql (Unsp spec) Negative [employer] Other COVID + FLU Quick Testing Negative [employer] Other A1C HEMOGLOBINon 01-21-2021 HbA1c (Bld) [Mass fraction] 10.1 % [employer] Other HbA1c (Bld) [Mass fraction]o n 01-21-2021 A1C HEMOGLOBIN CBIT A/S Other Operative Reporton Operative Report MR#: [id number] [facility] Pt. Name: Jose Gee Room #: 0C Discharge Date: Birthdate: 1970 OPERATIVE REPORT DATE OF SURGERY: 10/17/2020 SURGEON: Melina Munoz M.D. PREOPERATIVE DIAGNOSIS: Left frozen shoulder. POSTOPERATIVE DIAGNOSIS: Left frozen shoulder. INFANT CAREGIVER: Phillip Hoff M.D. ANESTHESIA: General. PROCEDURE PERFORMED: Left shoulder manipulation under anesthesia. INDICATIONS: The patient is a 50-year-old woman, who has over 6 months of left shoulder pain and stiffness with a diagnosis of adhesive capsulitis. She has no radiographic evidence of rotator cuff or labral tear. She has tried physical therapy. She has tried anti-inflammatori es. She cannot take steroid injections. I offered to her a left shoulder manipulation under anesthesia. Risks and benefits were discussed preoperatively. Informed consent was obtained in the clinic as well and she was scheduled for the procedure on 10/17/2020. PROCEDURE IN DETAIL: After confirmation and marking of the correct surgical extremity in the preoperative holding area, the patient was brought back to the operating suite and placed in the supine position. All pressure points were adequately padded. General endotracheal anesthesia was smoothly induced. Preoperative antibiotics were administered. The left upper extremity was prepped and draped in a sterile fashion. After observation of a surgical time-out procedure using 2 separate patient identifiers, we began with the case. We first grasped the humerus as proximally as possible and assess her preoperative range of motion. There was extremely poor. She had only 70 degrees of forward flexion, 30 degrees of external rotation, and 0 degrees of internal rotation. We then sequentially manipulated the shoulder until we were able to achieve 180 degrees of forward flexion, 90 degrees of external rotation, and 90 degrees of internal rotation. The patient was then awakened and brought back to the PACU in stable condition. I was present, scrubbed, and actively participated through all vaughan portions of the surgery. ESTIMATED BLOOD LOSS: None. COMPLICATIONS: None. DISPOSITION: To the PACU in stable condition. POSTOPERATIVE PLAN: We are going to begin immediate postoperative therapy to maintain her motion. I will see her back in 6 weeks' time for a motion check. Electronically Signed by: Melina Munoz M.D. 10/21/2020 10:53 A __ Melina Munoz M.D. Date Dict: 10/17/2020/07:34 A/Melina Munoz M.D. Date Trans: 10/17/2020 08:43 A/etta [id number] Normal [facility] POC GLUCOSE LABon 10-17-2020 Glucose [Mass/Vol] 191 mg/dL High 70-100 [facility] Comment on above: Performed By: #### [id number] #### [facility] [address] [place] [address], [facility] Glucose [Mass/Vol] 286 mg/dL High 70-100 [facility] Comment on above: Performed By: #### [id number] #### [facility] [address] [place] [address], [facility] MRI SHOULDER W CONTRAST LEFT on 09-11-2020 MRI SHOULDER W CONTRAST LEFT [facility] Department of Radiology [address] [place] [address] [phone] ====== Patient Name: JOSE GEE : 1970 Sex: F Age: Race: White Pt. Location: Patient Status: D Ordered Date: 08/12/2020 2:15:00 PM Completed Date: 09/11/2020 04:58 PM Requesting Provider: MELINA UMNOZ Attending Provider: MELINA MUNOZ Report Copy To: Signs & Symptoms: S49.92XA Unsp injury of left shoulder and upper arm, init encntr I10 History: Burna [phone] Comments: Exam: MRI SHOULDER W CONTRAST LEFT ====== MRI SHOULDER W CONTRAST LEFT 09/11/2020 4:58 PM CLINICAL INDICATIONS: S49.92XA Unsp injury of left shoulder and upper arm, init encntr I10 TECHNOLOGIST COMMENTS: L shoulder pain, ltd rom, L shoulder arthrogram, PROTOCOL: Images were obtained in the following sequences: 3-plane localizer, axial T1 fat-sat, sagittal T1 fat-sat, coronal T1 fat-sat, axial PD fat-sat, sagittal PD fat-sat, and coronal PD fat-sat. CONTRAST: Contrast: 20ml NaCl and .2 Omniscan Solution, 0.2 milliliter, Intra-articular COMPARISON: February FINDINGS: Adequate distention of the joint capsule There is some contrast leaked around the subscapularis muscle tendon junction There is not significant contrast seen in the subacromial subdeltoid bursa There is not significant bursal fluid accumulation, only minor bursal thickening noted Subscapularis looks intact The biceps long head tendon is not visualized in the bicipital groove There is surgical change now with plugs or anchors in the superior labrum There is a prominent superior and middle glenohumeral ligament which looks similar to the previous exam. This is thought likely to be developmental variant There is an irregular appearance of the superior and posterior labrum perhaps partially resected There is some irregularity at the superior posterior humeral head which may be sequelae of an old dislocation The abnormal appearance of the anterior inferior labrum complex described previously looks less impressive on this current study. It looks like there is probably some scarring and thickening of the anterior inferior glenohumeral ligament attachment There is not a discrete bony or cartilaginous Bankart lesion currently visible There is significant thinning in the supraspinatus tendon suggesting tendinosis, partial thickness tear and/or degeneration without a full-thickness retracted tear Mild muscle atrophy Infraspinatus looks intact There are some surgical artifacts along the posterior aspect of the proximal humeral shaft IMPRESSION: Surgical changes with truncated and probably partially resected appearance of the superior posterior labrum and biceps anchor; the proximal biceps long head tendon is not seen There is surgical plugs in the anterior superior glenoid adjacent to what is thought to be a prominent superior and middle glenohumeral ligament complex There is some fullness at the anterior inferior labrum/capsule attachment suggesting some scarring and fibrosis without a discrete tear, bony or cartilaginous Bankart or capsular rupture seen There is tendinopathy in the distal supraspinatus tendon which looks thin suggesting degeneration and partial-thickness tear without convincing full-thickness extension or retraction; mild muscle atrophy Subscapularis and infraspinatus look intact. Surgical clips seen along the posterior proximal humeral shaft Electronically signed: Mau Turcios. Transcribed by: [email or web address], User Resident: Electronically Signed by: MAU TURCIOS @ 09/13/2020 10:56 AM Normal [facility] SHOULDER ARTHROGRAM LEFTon 0 09-11-2020 SHOULDER ARTHROGRAM LEFT [facility] Department of Radiology [address] [place] [phone] ====== Patient Name: JOSE GEE : 1970 Sex: F Age: Race: White Pt. Location: Patient Status: D Ordered Date: 08/12/2020 2:15:00 PM Completed Date: 09/11/2020 03:17 PM Requesting Provider: MELINA MUNOZ Attending Provider: MELINA MUNOZ Report Copy To: Signs & Symptoms: S49.92XA Unsp injury of left shoulder and upper arm, init encntr I10 History: Comments: Please evaluate Exam: SHOULDER ARTHROGRAM LEFT ====== SHOULDER ARTHROGRAM LEFT 09/11/2020 3:17 PM CLINICAL INDICATIONS: S49.92XA Unsp injury of left shoulder and upper arm, init encntr I10 TECHNOLOGIST COMMENTS: left shoulder pain pre MRI .13 min fluoro time QUESTION FOR THE RADIOLOGIST: Please evaluate TECHNIQUE: AP(PA) view was obtained. CONTRAST: Contrast: OMNIPAQUE 180 (LOCM), 7 milliliter, Intra-articular Contrast: OMNISCAN, .2 milliliter, Intra-articular Procedure: Risks, benefits, indications, and alternatives to the procedure were explained to the patient. Risks include bleeding and infection. All questions were answered. Both written and verbal informed consent was obtained. Patient was placed in the supine position on the fluoroscopic table. Suitable site was marked using fluoroscopic guidance and overlying skin prepped and draped in usual sterile fashion. Lidocaine 1% was used for local and deep anesthesia. A 22-gauge 3-1/2 inch spinal needle was advanced under fluoroscopic guidance. Position was confirmed by administration of small amount of Omnipaque 180. Diluted 0.2 mL of Omniscan in contrast and saline were administered into the joint space prior to MRI examination There was no complication. Needle was removed and a sterile bandage applied. Patient tolerated the procedure well. Procedure was performed by Dr. Dangelo and under supervision of Dr. HINES IMPRESSION: Successful left shoulder arthrogram prior to MRI arthrogram No complications and minimal, less than 5mL bleeding. Electronically signed: Jim Hines. Transcribed by: [email or web address], User Resident: Electronically Signed by: JIM HINES @ 10/01/2020 11:08 AM Normal [facility] Comment on above: Order Comment: Karely valdez evaluate CERVICAL SPINE 4 OR 5 VIEWSo n 08-27-2020 CERVICAL SPINE 4 OR 5 VIEWS [facility] Department of Radiology [address] [place] [phone] ====== Patient Name: JOSE GEE : 1970 Sex: F Age: Race: White Pt. Location: Patient Status: D Ordered Date: 08/27/2020 2:20:00 PM Completed Date: 08/27/2020 02:20 PM Requesting Provider: AMARJIT KOROMA Attending Provider: AMARJIT KOROMA Report Copy To: Signs & Symptoms: M54.2 Cervicalgia I10 History: Comments: Views (X-RAY, CERVICAL SPINE): AP, Lateral, Odontoid, Flexion, Extension Exam: CERVICAL SPINE 4 OR 5 VIEWS ====== CERVICAL SPINE 4 OR 5 VIEWS 08/27/2020 2:20 PM CLINICAL INDICATIONS: M54.2 Cervicalgia I10 TECHNOLOGIST COMMENTS: pt states pain in neck and rt hand tingling QUESTION FOR THE RADIOLOGIST: Views (X-RAY, CERVICAL SPINE): AP, Lateral, Odontoid, Flexion, Extension PROTOCOL: AP,Odontoid, Lateral, Flexion and Extension views. COMPARISON: 11/06/2019 FINDINGS: No interval changes demonstrated. Anterior spurring is again seen in the mid and lower cervical levels with normal disc space height preserved at all levels. AP alignment of vertebral bodies is normal throughout with normal alignment maintained in flexion and extension views. IMPRESSION: Unchanged from last October with no abnormal motion on flexion and extension views Electronically signed: Seb Zuniga. Transcribed by: [email or web address], User Resident: Electronically Signed by: SEB ZUNIGA @ 08/28/2020 11:40 AM Normal [facility] Comment on above: Order Comment: Views (X-RAY, CERVICAL SPINE): AP, Lateral, Odontoid, Flexion, Extension Operative Reporton Operative Report MR#: [id number] [facility] Pt. Name: Jose Gee Room #: 0C Discharge Date: Birthdate: 1970 OPERATIVE REPORT DATE OF SURGERY: 07/09/2020 SURGEON: Marcio Hyde M.D. PREOPERATIVE DIAGNOSES: 1. Recurrent carpal tunnel syndrome, left hand. 2. Trigger digits, left index and long fingers. 3. Lateral epicondylitis, left elbow. POSTOPERATIVE DIAGNOSES: 1. Recurrent carpal tunnel syndrome, left hand. 2. Trigger digits, left index and long fingers. 3. Lateral epicondylitis, left elbow. PROCEDURE: 1. Revision carpal tunnel release. 2. Trigger digit releases of the index and long fingers. 3. Nirschl procedure of the left elbow. INFANT CAREGIVER: David Lucio M.D. ANESTHESIA: Regional with an axillary block. INDICATION FOR SURGERY: The patient is a 50-year-old female, whom we saw [facility] with complaints of recurrent carpal tunnel symptoms involving the left hand. She also has symptomatic trigger digits of the index and long fingers. On top of that, she has chronic lateral epicondylitis. All 3 of these have been worsening problems for her despite nonoperative means of treatment. She is felt to be a candidate for surgical management at this point in time. She was brought to the operating room today for the listed procedures. The risks and benefits were explained prior to surgery with good understanding, it is agreed to proceed. NARRATION: The patient was brought to the operating room and placed on the table in the supine position. An axillary block had been administered per the Anesthesia Service in the holding area. A tourniquet was placed around the proximal left arm. The left upper extremity was prepped and draped out in a sterile fashion. To begin the procedure, after standard time-out, the arm was exsanguinated with an Esmarch bandage and tourniquet was inflated to 250 mmHg. Using a #15 blade, a Lisa type incision was made for the carpal tunnel extending proximally across the wrist crease and then utilizing the previous surgical scar distally. We sharply elevated our triangular skin flaps. The median nerve was identified at the most proximal end of our dissection. We undermined the antebrachial fascia and the transverse carpal ligament and then carefully dissected from proximal to distal completely releasing the carpal tunnel. The nerve looks pretty good. There was some slight adhesions, but we bluntly dissected the nerve out. There was a fairly thick tenosynovium around the flexor tendons. With 2 Ragnell retractors, I retracted the median nerve. The radially. With a scissor and forceps, we dissected the tenosynovium around the tendons and dissected that off and excised it. I think I had opened up the carpal tunnel a little bit and decreased the volume. The wound was irrigated with normal saline solution. The skin was closed with 5-0 Novafil suture. We then went to the trigger fingers and made 1.5 cm diagonal incisions over each of the index and long finger. Starting on the index finger, we bluntly dissected down to the flexor sheath. We used 3 Ragnell retractors to expose the A1 jaime. Where we had good visualization. The jaime is opened up longitudinally in line with the tendon. It should be noted that the radial digital nerve was identified and was protected throughout. Switching to a tenotomy scissor, we released the sheath and the jaime distally to about the level of the MP flexion crease. Proximally, the sheath was released back toward the palm until it was completely free. The tendons were pulled out into the wound and have free excursion. We then went to the long finger and again bluntly dissected down to the sheath and exposed the A1 jaime with Ragnell retractors. The jaime was opened up initially with a knife blade and then with a tenotomy scissor using the same landmarks and technique. The tendons are pulled out and have free excursion. The A1 jaime was significantly thicker on the index finger than what it was on the long finger. Both these wounds were irrigated and closed with 5-0 Novafil. Lastly, we went to the lateral epicondyle. The elbow was placed on some blue towels. We made about a 3-4 cm diagonal incision just in front of the lateral epicondyle. Blunt dissection was carried out through the subcutaneous tissue down to the extensor origin. The self-retaining retractor was placed. With the Bovie, we incised along the epicondylar ridge and right over to the tip of the epicondyle. Care was taken not to extend our dissection below the epicondyle in the area of the lateral collateral ligament. We then split distally. The extensor origin was elevated up off the epicondyle. There was some fibrodysplastic tissue on the undersurface of the extensor origin. That sharply excised with a #15 blade. Then using a rongeur, we decorticated the epicondyle and the epicondylar ridge, getting do (more content not included)... Normal [facility] POC GLUCOSE LABon 07-09-2020 Glucose [Mass/Vol] 274 mg/dL High 70-100 The [facility] Comment on above: Performed By: #### [id number] #### [facility] [address] [place] [address], [facility] Glucose [Mass/Vol] 348 mg/dL High 70-100 [facility] Comment on above: Performed By: #### [id number] #### [facility] [address] OPERATIVE REPORTon 9 OPERATIVE REPORT [facility] [address] [place] [address] OPERATIVE REPORT PATIENT NAME: JOES GEE : 1970 MED REC NO: [id number] ROOM: ACCOUNT NO: [id number] ADMIT DATE: 12/26/2018 PROVIDER: Alma Delia Haile DDS DATE OF PROCEDURE: 12/26/2018 PREOPERATIVE DIAGNOSES: Caries, non-restorable teeth #2 and 31. POSTOPERATIVE DIAGNOSES: Caries, non-restorable teeth #2 and 31. OPERATION PERFORMED: Surgical removal of teeth #2 and 31. SURGEON: Alma Delia Haile DDS. OPERATIVE PROCEDURE: In supine position, the patient was prepared and draped in usual manner. Throat pack placed. Via elevators and forceps, teeth #2 and 31 were surgically removed. The sockets were irrigated and curetted. Closure was accomplished with 3-0 silk suture. Estimated blood loss was 50 mL. Complications none. The patient went to the PAR in good condition. ALMA DELIA HAILE DDS [id number] Doc#: [id number] CC: [facility] POC Urine Qualon 1 02-25-2018 Beta HCG ( test) Ql (U) Negative Negative [place] Beta HCG ( test) Ql (U) [id number] [place] Negative QC Pass/Fail Pass [place], [place] Positive QC Pass/Fail Pass [place] POCT Glucoseon 12-26-2018 Glucose [Mass/Vol] 223 mg/dL Critically high 60-115 M [facility] Comment on above: Performed By: #### P GLU #### [address] [id number] POC Performed on ACCU-CHEK [facility] Comment on above: Performed By: #### P GLU #### [facility] [address] [place] [address] Glucose [Mass/Vol] 223 mg/dL High 60 - 115 mg/dl [facility]- [place], [place] Interpretation and review of laboratory results Abnormal [facility], [place] Performed on ACCU-CHEK [facility], [place] Glucose [Mass/Vol] 295 mg/dL Critically high 60-115 M [facility] Comment on above: Performed By: #### P GLU #### [facility] [address] [place] [address] POC Performed on ACCU-CHEK Normal [facility] Comment on above: Result Comment: Juan Carlos mei RN or Performed By: #### P GLU #### [facility] [address] [place] [address] Glucose [Mass/Vol] 295 mg/dL High 60 - 115 mg/dl [facility] [place], [place] Interpretation and review of laboratory results Abnormal [facility], [place] Performed on ACCU-CHEK [facility], [place] Comment on above: Notified RN or MD UR Drugs of Abuse Panelon Drug Screen Comment see below Normal [facility] Comment on above: Result Comment: This method is a screening test to detect only these drug classes as part of a medical workup. Confirmatory testing by another method should be ordered if clinically indicated. Performed By: #### U DRGS #### [facility] [address] [place] [address] UR Amphetamines Screen Negative Normal Negative < [facility] Comment on above: Performed By: #### U DRGS #### [facility] [address] [place] [address] UR Barbiturates Screen Negative Normal Negative < [facility] Comment on above: Performed By: #### U DRGS #### [facility] [address] [place] [address] UR Benzo Screen Negative Normal Negative < [facility] Comment on above: Performed By: #### U DRGS #### [facility] [address] [place] [address] UR Cannabinoids Screen Negative Normal Negative < [facility] Comment on above: Performed By: #### U DRGS #### [facility] [address] [place] [address] UR Cocaine Screen Negative Normal Negative < [facility] Comment on above: Performed By: #### U DRGS #### [facility] [address] [place] [address] UR Methadone Screen Negative Normal Negative < [facility] Comment on above: Result Comment: Effe ctive: 10/23/18 New Test for Qualitative Drug Screen. Performed By: #### U DRGS #### [facility] [address] [place] [address] UR Opiates Screen Negative Normal Negative < [facility] Comment on above: Performed By: #### U DRGS #### [facility] [address] [place] [address] UR Oxycodone Screen Negative Normal Negative < [facility] Comment on above: Result Comment: Effe ctive: 10/23/18 New Test for Qualitative Drug Screen. Performed By: #### U DRGS #### [facility] [address] [place] [address] UR PCP Screen Negative Normal Negative < [facility] Comment on above: Performed By: #### U DRGS #### [facility] [address] [place] [address] UR Propoxyphene Screen Negative Normal Negative < [facility] Comment on above: Result Comment: Effe ctive: 10/23/18 New Test for Qualitative Drug Screen. Performed By: #### U DRGS #### [facility] [address] [place] [address] URINE DRUG SCREENon 12-27-19 Amphetamine Screen, Urine Negative Negative <1000 ng/mL [facility], [place] Barbiturate Screen, Ur Negative Negat patrick < 200 ng/mL [facility], [place] Benzodiazepine Screen, Urine Negative Negative < 200 ng/mL [facility], [place] Cannabinoid Scrn, Ur Negative Negativ e < 50 ng/mL [facility], [place] Cocaine Metabolite Screen, Urine Negative Negative < 300 ng/mL [facility], [place] Drug Screen Comment: see below [facility], [place] Comment on above: This method is a scr eening test to detect only these drug classes as part of a medical workup. Confirmatory testing by another method should be ordered if clinically indicated. Methadone Screen, Urine Negative Negative <300 ng/mL [facility], [place] Comment on above: Effective: 10/23/18 New Test for Qualitative Drug Screen. Opiate Scrn, Ur Negative Negative < 3 00 ng/mL [facility], [place] Oxycodone Urine Negative Negative <10 0 ng/mL [facility], [place] Comment on above: Effective: 10/23/18 New Test for Qualitative Drug Screen. PCP Screen, Urine Negative Negative < 25 ng/mL [facility], [place] Propoxyphene Scrn, Ur Negative Negati ve <300 ng/mL [facility], [place] Comment on above: Effective: 10/23/18 New Test for Qualitative Drug Screen. EKG 12 Leadon 12-20-2018 Atrial Rate 95 BPM [facility], [place] P [place] 54 degrees [facility] P-R Interval 132 ms [facility], [place] Q-T Interval 364 ms [facility] QRS Duration 76 ms [facility], [place] QTc Calculation (Bazett) 457 ms [facility] R [place] 37 degrees [facility] T [place] 42 degrees [facility], [place] Ventricular Rate 95 BPM [facility], [place] Normal sinus rhythm Cannot rule out Anterior infarct , age undetermined Abnormal ECG No previous ECGs available Confirmed by MANUEL STOREY ([id number]) on 12/20/2018 7:44:35 AM [facility], [place] Walter, Chpo Incoming Results From [place] - 12/20/2018 7:44 AM EST Normal sinus rhythm Cannot rule out Anterior infarct , age undetermined Abnormal ECG No previous ECGs available Confirmed by MANUEL STOREY ([id number]) on 12/20/2018 7:44:35 AM [facility], [place] Basic Metabolic Panelon 11-0 Anion gap [Moles/Vol] 16 mmol/L Critically high 9-15 [facility] Comment on above: Performed By: #### B MP #### [facility] [address] [place] [address] Calcium [Mass/Vol] 9.2 mg/dL Normal 8.5-9.9 [facility] Comment on above: Performed By: #### B MP #### [facility] [address] [place] [address] Chloride [Moles/Vol] 100 mmol/L Normal 95-107 [facility] Comment on above: Performed By: #### B MP #### [facility] [address] [place] [address] CO2 [Moles/Vol] 22 mmol/L Normal 20-31 [facility] Comment on above: Performed By: #### B MP #### [facility] [address] [place] [address] Creatinine [Mass/Vol] 0.70 mg/dL Normal 0.50-0.90 [facility] Comment on above: Performed By: #### B MP #### [facility] [address] [place] [address] GFR/1.73 sq M predicted among blacks MDRD (S/P/Bld) [Vol rate/Area] mL/min/{1.73_m2} Normal >60 [facility] Comment on above: Result Comment: >60 mL/min/1.73m2 EGFR, calc. for ages 18 and older using the MDRD formula (not corrected for weight), is valid for stable renal function. Performed By: #### B MP #### [facility] [address] [place] [address] GFR/1.73 sq M.predicted MDRD (S/P/Bld) [Vol rate/Area] mL/min/{1.73_m2} Normal >60 [facility] Comment on above: Result Comment: >60 mL/min/1.73m2 EGFR, calc. for ages 18 and older using the MDRD formula (not corrected for weight), is valid for stable renal function. Performed By: #### B MP #### [facility] [address] [place] [address] Glucose [Mass/Vol] 298 mg/dL Critically high 70-99 M [facility] Comment on above: Performed By: #### B MP #### [facility] [address] [place] [address] Potassium [Moles/Vol] 4.2 mmol/L Normal 3.4-4.9 [facility] Comment on above: Performed By: #### B MP #### [facility] [address] [place] [address] Sodium [Moles/Vol] 138 mmol/L Normal 135-144 [facility] Comment on above: Performed By: #### B MP #### [facility] [address] [place] [address] Urea nitrogen [Mass/Vol] 12 mg/dL Normal 6-20 [facility] Comment on above: Performed By: #### B MP #### [facility] [address] [place] [address] Anion gap [Moles/Vol] 16 mmol/L High [facility] [place], [place] Calcium [Mass/Vol] 9.2 mg/dL 8.5 - 9.9 mg/dL [facility] [place], [place] Chloride [Moles/Vol] 100 mmol/L [facility] [place], [place] CO2 [Moles/Vol] 22 mmol/L [facility] [place], [place] Creatinine [Mass/Vol] 0.7 mg/dL 0.5 - 0.9 mg/d L [facility], [place] GFR >60.0 >60 [facility] [place], [place] Comment on above: >60 mL/min/1.73m2 EG FR, calc. for ages 18 and older using the MDRD formula (not corrected for weight), is valid for stable renal function. GFR Non- >60.0 >60 [place] Comment on above: >60 mL/min/1.73m2 EG FR, calc. for ages 18 and older using the MDRD formula (not corrected for weight), is valid for stable renal function. Glucose [Mass/Vol] 298 mg/dL High 70 - 99 mg/dL [place] Interpretation and review of laboratory results Abnormal [place] Potassium [Moles/Vol] 4.2 mmol/L [place] Sodium [Moles/Vol] 138 mmol/L [place] Urea nitrogen [Mass/Vol] 12 mg/dL 6 - 20 mg/dL [place] CBCon 12-19-2018 Erythrocyte distribution width (RBC) [Ratio] 13.7 % 11.5 - 14.5 % [place] Hematocrit (Bld) [Volume fraction] 39.8 % 37 - 47 % [place] Hemoglobin (Bld) [Mass/Vol] 13.3 g/dL 12 - 16 g/dL [place] MCH (RBC) [Entitic mass] 30.3 pg 27 - 31.3 pg [place] MCHC (RBC) [Mass/Vol] 33.3 % 33 - 37 % [place] MCV (RBC) [Entitic vol] 91.0 fL 82 - 100 fL [place] Platelets (Bld) [#/Vol] 248 10*3/uL 130 - 400 K/uL [place] RBC (Bld) [#/Vol] 4.38 10*6/uL [place] WBC (Bld) [#/Vol] 5.5 10*3/uL 4.8 - 10.8 K/uL [place], [place] CBC With Platelet No Differe ntialon 12-19-2018 Erythrocyte distribution width (RBC) [Ratio] 13.7 % Normal 11.5-14.5 [facility] Comment on above: Performed By: #### C BCND #### [facility] [address] [place] [address] Hematocrit (Bld) [Volume fraction] 39.8 % Normal 37.0-47.0 [facility] Comment on above: Performed By: #### C BCND #### [facility] [address] [place] [address] Hemoglobin (Bld) [Mass/Vol] 13.3 g/dL Normal 12.0-16.0 [facility] Comment on above: Performed By: #### C BCND #### [facility] [address] [place] [address] MCH (RBC) [Entitic mass] 30.3 pg Normal 27.0-31.3 [facility] Comment on above: Performed By: #### C BCND #### [facility] [address] [place] [address] MCHC (RBC) [Mass/Vol] 33.3 % Normal 33.0-37.0 [facility] Comment on above: Performed By: #### C BCND #### [facility] [address] [place] [address] MCV (RBC) [Entitic vol] 91.0 fL Normal 82.0-100.0 [facility] Comment on above: Performed By: #### C BCND #### [facility] [address] [place] [address] Platelets (Bld) [#/Vol] 248 10*3/uL Normal 130-400 [facility] Comment on above: Performed By: #### C BCND #### [facility] [address] [place] [address] RBC (Bld) [#/Vol] 4.38 10*6/uL Normal 4.20-5.40 [facility] Comment on above: Performed By: #### C BCND #### [facility] [address] [place] [address] WBC (Bld) [#/Vol] 5.5 10*3/uL Normal 4.8-10.8 [facility] Comment on above: Performed By: #### C BCND #### [facility] [address] [place] [address] Hemoglobin A1Con 12-19-2018 HbA1c (Bld) [Mass fraction] 10.1 % High 4.8 - 5.9 % [place] Interpretation and review of laboratory results Abnormal [place] Hemoglobin A1con 12-19-2018 HbA1c (Bld) [Mass fraction] 10.1 % Critically high 4.8-5.9 [facility] Comment on above: Performed By: #### A 1C #### [facility] [address] [place] [address] Vital Signs Date Time Vital Sign Value Performing Clinician Facility 10-13-2023 10:58-0400 Body height 160 cm Ana Lamin DO Work Phone: [facility] 10-13-2023 10:58-0400 Body mass index (BMI) [Ratio] 35.25 kg/m2 Ana Lamin DO Work Phone: [facility] 10-13-2023 10:58-0400 Body weight 90.27 kg Ana Lamin DO Work Phone: [facility] 10-13-2023 10:58-0400 Diastolic blood pressure 75 mm[Hg] Ana Lamin DO Work Phone: [facility] 10-13-2023 10:58-0400 Heart rate 74 /min Ana Lamin DO Work Phone: [facility] 10-13-2023 10:58-0400 Systolic blood pressure 122 mm[Hg] Ana Lamin DO Work Phone: [facility] 10-04-2023 11:14-0400 Body height 162.56 cm DO Breanna Galvan Work Phone: [facility] 10-04-2023 11:14-0400 Body mass index (BMI) [Ratio] 31.2 kg/m2 DO Breanna Galvan Work Phone: [facility] 10-04-2023 11:14-0400 Body weight 82.55 kg DO Breanna Galvan Work Phone: [facility] 10-04-2023 11:14-0400 Diastolic blood pressure 53 mm[Hg] DO Breanna Galvan Work Phone: [facility] 10-04-2023 11:14-0400 Heart rate 77 /min DO Breanna Galvan Work Phone: [facility] 10-04-2023 11:14-0400 SaO2% (BldA) [Mass fraction] 98 % DO Breanna Galvan Work Phone: [facility] 10-04-2023 11:14-0400 Systolic blood pressure 125 mm[Hg] DO Breanna Galvan Work Phone: [facility] 09-29-2023 15:51-0400 Blood Pressure Location Andreina Gudimella [facility] 09-29-2023 15:51-0400 Diastolic blood pressure 80 mm[Hg] Andreina Gudimella [facility] 09-29-2023 15:51-0400 Heart rate 89 /min Andreina Gudimella [facility] 09-29-2023 15:51-0400 Respiratory rate 18 /min Andreina Gudimella [facility] 09-29-2023 15:51-0400 SaO2% (BldA) [Mass fraction] 99 % Andreina Gudimella [facility] 09-29-2023 15:51-0400 Systolic blood pressure 116 mm[Hg] Andreina Gudimella [facility] 08-17-2023 14:03-0400 Blood Pressure Location Andreina Gudimella [facility] 08-17-2023 14:03-0400 Diastolic blood pressure 70 mm[Hg] Andreina Gudimella [facility] 08-17-2023 14:03-0400 Heart rate 89 /min Andreina Gudimella [facility] 08-17-2023 14:03-0400 SaO2% (BldA) [Mass fraction] 98 % Andreina Gudimella [facility] 08-17-2023 14:03-0400 Systolic blood pressure 104 mm[Hg] Andreina Gudimella [facility] 08-09-2023 11:20-0400 Body height 162.56 cm [facility] 08-09-2023 11:20-0400 Body mass index (BMI) [Ratio] 33.3 kg/m2 [facility] 08-09-2023 11:20-0400 Body weight 88.13 kg [facility] 08-09-2023 11:20-0400 Diastolic blood pressure 80 mm[Hg] [facility] 08-09-2023 11:20-0400 Heart rate 98 /min [facility] 08-09-2023 11:20-0400 SaO2% (BldA) [Mass fraction] 95 % [facility] 08-09-2023 11:20-0400 Systolic blood pressure 151 mm[Hg] [facility] 06-29-2023 11:45-0400 Diastolic blood pressure 83 mm[Hg] [facility] 06-29-2023 11:45-0400 Heart rate 88 /min [facility] 06-29-2023 11:45-0400 Respiratory rate 16 /min [facility] 06-29-2023 11:45-0400 SaO2% (BldA) [Mass fraction] 96 % [facility] 06-29-2023 11:45-0400 Systolic blood pressure 136 mm[Hg] [facility] 06-29-2023 10:15-0400 Body temperature 97.6 [degF] [facility] 06-29-2023 10:15-0400 Inhaled oxygen flow rate 6 L/min [facility] 06-29-2023 08:16-0400 Body height 160.02 cm [facility] 06-29-2023 08:16-0400 Body mass index (BMI) [Ratio] 34.9 kg/m2 [facility] 06-29-2023 08:16-0400 Body weight 89.4 kg [facility] 03-31-2023 13:58-0500 Blood Pressure Location Andreina Gudimella [facility] 03-31-2023 13:58-0500 Diastolic blood pressure 80 mm[Hg] Andreina Gudimella [facility] 03-31-2023 13:58-0500 Heart rate 86 /min Andreina Gudimella [facility] 03-31-2023 13:58-0500 SaO2% (BldA) [Mass fraction] 99 % Andreina Gudimella [facility] 03-31-2023 13:58-0500 Systolic blood pressure 130 mm[Hg] Andreina Gudimella [facility] 03-24-2023 14:51-0500 Body height 160 cm Kai Vidal DO Work Phone: [facility] 03-24-2023 14:51-0500 Body mass index (BMI) [Ratio] 36.14 kg/m2 Kai Vidal DO Work Phone: [facility] 03-24-2023 14:51-0500 Body weight 92.53 kg Kai Vidal DO Work Phone: [facility] 02-17-2023 15:38-0500 Blood Pressure Location Andreina Gudimella [facility] 02-17-2023 15:38-0500 Diastolic blood pressure 80 mm[Hg] Andreina Gudimella [facility] 02-17-2023 15:38-0500 Heart rate 97 /min Andreina Gudimella [facility] 02-17-2023 15:38-0500 SaO2% (BldA) [Mass fraction] 93 % Andreina Gudimella [facility] 02-17-2023 15:38-0500 Systolic blood pressure 120 mm[Hg] Andreina Gudimella [facility] 11-16-2022 11:00-0400 Hourly Rounding Ronobir DARIN [facility] 11-16-2022 11:00-0400 Promise to Return Ronobir DARIN [facility] 11-16-2022 10:00-0400 Hourly Rounding Ronobir DARIN [facility] 11-16-2022 10:00-0400 Promise to Return Ronobir DARIN [facility] 11-16-2022 09:01-0400 Hourly Rounding Ronobir DARIN [facility] 11-16-2022 09:01-0400 Promise to Return Ronobir DARIN [facility] 11-16-2022 08:58-0400 gluc 133 mg/dL Ronobir DARIN [facility] 11-16-2022 08:57-0400 Diastolic blood pressure 64 mm[Hg] Ronobir DARIN [facility] 11-16-2022 08:57-0400 Systolic blood pressure 100 mm[Hg] Ronobir DARIN [facility] 11-16-2022 07:47-0400 Heart rate 78 /min Ronobir DARIN [facility] 11-16-2022 07:47-0400 SaO2% (BldA) [Mass fraction] 92 % Ronobir DARIN [facility] 11-16-2022 07:43-0400 Diastolic blood pressure 64 mm[Hg] Ronobir DARIN [facility] 11-16-2022 07:43-0400 Mean blood pressure 76 mm[Hg] Ronobir DARIN [facility] 11-16-2022 07:43-0400 Systolic blood pressure 100 mm[Hg] Ronobir DARIN [facility] 11-16-2022 07:42-0400 Body temperature 97.7 [degF] Ronobir DARIN [facility] 11-16-2022 07:33-0400 Heart rate 78 /min Ronobir DARIN [facility] 11-16-2022 07:33-0400 Respiratory rate 18 /min Ronobir DARIN [facility] 11-16-2022 07:31-0400 SaO2% (BldA) [Mass fraction] 96 % Ronobir DARIN [facility] 11-16-2022 03:32-0400 Heart rate 70 /min Ronobir DARIN [facility] 11-16-2022 03:32-0400 SaO2% (BldA) [Mass fraction] 95 % Ronobir DARIN [facility] 11-16-2022 03:27-0400 Mean blood pressure 84 mm[Hg] Ronobir DARIN [facility] 11-16-2022 03:27-0400 Body temperature 97.88 [degF] Ronobir DARIN [facility] 11-16-2022 03:27-0400 Mean blood pressure 84 mm[Hg] Ronobir DARIN [facility] 11-16-2022 03:27-0400 Respiratory rate 16 /min Ronobir DARIN [facility] 11-16-2022 01:21-0400 Blood Pressure Location Ronobir DARIN [facility] 11-16-2022 01:21-0400 Body temperature 97.88 [degF] Ronobir DARIN [facility] 11-16-2022 01:21-0400 Mean blood pressure 83 mm[Hg] Ronobir DARIN [facility] 11-16-2022 01:21-0400 Respiratory rate 18 /min Ronobir DARIN [facility] 11-15-2022 19:45-0400 Mean blood pressure 83 mm[Hg] Ronobir DARIN [facility] 11-15-2022 16:33-0400 gluc 269 mg/dL Ronobir DARIN [facility] 11-15-2022 16:21-0400 Body temperature 100.04 [degF] Ronobir DARIN [facility] 11-15-2022 12:48-0400 gluc 189 mg/dL Ronobir DARIN [facility] 11-15-2022 12:23-0400 Body temperature 98.42 [degF] Ronobir DARIN [facility] 11-15-2022 04:00-0400 Mean blood pressure 85 mm[Hg] Ronobir DARIN [facility] 11-15-2022 00:50-0400 Heart rate 88 /min Ronobir DARIN [facility] 11-14-2022 23:17-0400 Respiratory rate 16 /min Ronobir DARIN [facility] 11-14-2022 21:01-0400 Respiratory rate 18 /min Ronobir DARIN [facility] 11-14-2022 18:41-0400 Heart rate 102 /min Ronobir DARIN [facility] 09-08-2022 14:00-0400 Body height 160.02 cm Melina Salgado Other [employer] Other 09-08-2022 14:00-0400 Body mass index (BMI) [Ratio] 35.25 kg/m2 Melina Salgado Other [employer] Other 09-08-2022 14:00-0400 Body weight 90.27 kg Melina Salgado Other [employer] Other 09-08-2022 14:00-0400 Diastolic blood pressure 67 mm[Hg] Melina Salgado Other [employer] Other 09-08-2022 14:00-0400 SaO2% (BldA) [Mass fraction] 95 % Melina Salgado Other [employer] Other 09-08-2022 14:00-0400 Systolic blood pressure 101 mm[Hg] Melina Salgado Other [employer] Other 07-22-2022 10:16-0400 Diastolic blood pressure 56 mm[Hg] DO Breanna Galvan Work Phone: [facility] 07-22-2022 10:16-0400 Heart rate 70 /min DO Breanna Galvan Work Phone: [facility] 07-22-2022 10:16-0400 Respiratory rate 16 /min DO Breanna Galvan Work Phone: [facility] 07-22-2022 10:16-0400 SaO2% (BldA) [Mass fraction] 97 % DO Breanna Galvan Work Phone: [facility] 07-22-2022 10:16-0400 Systolic blood pressure 100 mm[Hg] DO Breanna Galvan Work Phone: [facility] 07-22-2022 08:44-0400 Body height 160.02 cm DO Breanna Mathewmer Work Phone: [facility] 07-22-2022 08:44-0400 Body temperature 97.9 [degF] DO Breanna Galvan Work Phone: [facility] 07-22-2022 08:44-0400 Body weight 90.71 kg DO Breanna Cole Work Phone: [facility] 04-15-2022 14:45-0500 Body height 160.02 cm Danny Wright Other [employer] Other 04-15-2022 14:45-0500 Body mass index (BMI) [Ratio] 35.34 kg/m2 Danny Wright Other [employer] Other 04-15-2022 14:45-0500 Body weight 90.49 kg Danny Wright Other [employer] Other 04-15-2022 14:45-0500 Diastolic blood pressure 78 mm[Hg] Danny Wright Other [employer] Other 04-15-2022 14:45-0500 Respiratory rate 18 /min Danny Wright Other [employer] Other 04-15-2022 14:45-0500 SaO2% (BldA) [Mass fraction] 98 % Danny Wright Other [employer] Other 04-15-2022 14:45-0500 Systolic blood pressure 118 mm[Hg] Danny Wright Other [employer] Other 01-12-2022 17:45-0500 Body height 160.02 cm Aranza Javed Other [employer] Other 01-12-2022 17:45-0500 Body mass index (BMI) [Ratio] 34.01 kg/m2 Aranza Javed Other [employer] Other 01-12-2022 17:45-0500 Body temperature 97.8 [degF] Aranza Javed Other [employer] Other 01-12-2022 17:45-0500 Body weight 87.09 kg Aranza Javed Other [employer] Other 01-12-2022 17:45-0500 Diastolic blood pressure 68 mm[Hg] Aranza Javed Other [employer] Other 01-12-2022 17:45-0500 Respiratory rate 18 /min Aranza Javed Other [employer] Other 01-12-2022 17:45-0500 SaO2% (BldA) [Mass fraction] 99 % Aranza Javed Other [employer] Other 01-12-2022 17:45-0500 Systolic blood pressure 116 mm[Hg] Aranza Javed Other [employer] Other 11-09-2021 15:00-0400 Body height 160.02 cm Breanna Galvan Other [employer] Other 11-09-2021 15:00-0400 Body mass index (BMI) [Ratio] 34.08 kg/m2 Breanna Galvan Other [employer] Other 11-09-2021 15:00-0400 Body weight 87.27 kg Breanna Galvan Other [employer] Other 11-09-2021 15:00-0400 Diastolic blood pressure 82 mm[Hg] Breanna Galvan Other [employer] Other 11-09-2021 15:00-0400 Respiratory rate 18 /min Breanna Galvan Other [employer] Other 11-09-2021 15:00-0400 SaO2% (BldA) [Mass fraction] 96 % Breanna Galvan Other [employer] Other 11-09-2021 15:00-0400 Systolic blood pressure 118 mm[Hg] Breanna Galvan Other [employer] Other 10-08-2021 15:00-0400 Body height 160.02 cm Breanna Galvan Other [employer] Other 10-08-2021 15:00-0400 Body mass index (BMI) [Ratio] 34.13 kg/m2 Breanna Galvan Other [employer] Other 10-08-2021 15:00-0400 Body weight 87.41 kg Breanna Galvan Other [employer] Other 10-08-2021 15:00-0400 Diastolic blood pressure 78 mm[Hg] Breanna Galvan Other [employer] Other 10-08-2021 15:00-0400 Respiratory rate 18 /min Breanna Galvan Other [employer] Other 10-08-2021 15:00-0400 SaO2% (BldA) [Mass fraction] 96 % Breanna Galvan Other [employer] Other 10-08-2021 15:00-0400 Systolic blood pressure 118 mm[Hg] Breanna Galvan Other [employer] Other 09-06-2021 17:04-0400 Heart rate 86 /min Aleksandar Nickerson [facility] 09-06-2021 17:04-0400 Respiratory rate 16 /min Aleksandar Nickerson [facility] 09-06-2021 17:04-0400 SaO2% (BldA) [Mass fraction] 98 % Aleksandar Nickerson [facility] 09-06-2021 17:03-0400 Diastolic blood pressure 72 mm[Hg] Aleksandar Krishan [facility] 09-06-2021 17:03-0400 Heart rate 89 /min Aleksandar Krishan [facility] 09-06-2021 17:03-0400 Hourly Rounding Aleksandar Krishan [facility] 09-06-2021 17:03-0400 Mean blood pressure 88 mm[Hg] Aleksandar Krishan [facility] 09-06-2021 17:03-0400 Promise to Return Aleksandarhever Nickerson [facility] 09-06-2021 17:03-0400 Respiratory rate 16 /min Aleksandar Krishan [facility] 09-06-2021 17:03-0400 SaO2% (BldA) [Mass fraction] 95 % Aleksandar Krishan [facility] 09-06-2021 17:03-0400 Systolic blood pressure 121 mm[Hg] Aleksandar Krishan [facility] 09-06-2021 16:11-0400 Body temperature 98.96 [degF] Aleksandar Krishan [facility] 09-06-2021 16:11-0400 Diastolic blood pressure 70 mm[Hg] Aleksandar Krishan [facility] 09-06-2021 16:11-0400 Heart rate 95 /min Aleksandar Krishan [facility] 09-06-2021 16:11-0400 Respiratory rate 18 /min Aleksandar Krishan [facility] 09-06-2021 16:11-0400 SaO2% (BldA) [Mass fraction] 95 % Aleksandar Krishan [facility] 09-06-2021 16:11-0400 Systolic blood pressure 126 mm[Hg] Aleksandar Nickerson [facility] 09-05-2021 23:25-0400 Body temperature 97.52 [degF] Pietro Dorie [facility] 09-05-2021 23:25-0400 Diastolic blood pressure 81 mm[Hg] Pietro Dorie [facility] 09-05-2021 23:25-0400 Heart rate 94 /min Pietro Dorie [facility] 09-05-2021 23:25-0400 Respiratory rate 17 /min Pietro Dorie [facility] 09-05-2021 23:25-0400 SaO2% (BldA) [Mass fraction] 98 % Pietro Dorie [facility] 09-05-2021 23:25-0400 Systolic blood pressure 144 mm[Hg] Pietro Dorie [facility] 08-06-2021 14:30-0400 Body height 160.02 cm Breanna Galvan Other [employer] Other 08-06-2021 14:30-0400 Body mass index (BMI) [Ratio] 34.38 kg/m2 Breanna Galvan Other [employer] Other 08-06-2021 14:30-0400 Body weight 88.04 kg Breanna Galvan Other [employer] Other 08-06-2021 14:30-0400 Diastolic blood pressure 74 mm[Hg] Breanna Galvan Other [employer] Other 08-06-2021 14:30-0400 Respiratory rate 18 /min Breanna Galvan Other [employer] Other 08-06-2021 14:30-0400 SaO2% (BldA) [Mass fraction] 97 % Breanna Galvan Other [employer] Other 08-06-2021 14:30-0400 Systolic blood pressure 102 mm[Hg] Breanna Galvan Other [employer] Other 07-21-2021 13:24-0400 Body temperature 98.78 [degF] Farshad Gillilande [facility] 07-21-2021 13:24-0400 Diastolic blood pressure 73 mm[Hg] Farshad Gillilande [facility] 07-21-2021 13:24-0400 Heart rate 88 /min Farshad Gillilande [facility] 07-21-2021 13:24-0400 Respiratory rate 18 /min Farshad Gillilande [facility] 07-21-2021 13:24-0400 SaO2% (BldA) [Mass fraction] 95 % Farshad Gillilande [facility] 07-21-2021 13:24-0400 Systolic blood pressure 107 mm[Hg] Farshad Gillilande [facility] 04-22-2021 15:00-0500 Body height 160.02 cm Breanna Galvan Other [employer] Other 04-22-2021 15:00-0500 Body mass index (BMI) [Ratio] 36.22 kg/m2 Breanna Galvan Other [employer] Other 04-22-2021 15:00-0500 Body temperature 97.9 [degF] Breanna Galvan Other [employer] Other 04-22-2021 15:00-0500 Body weight 92.76 kg Breanna Cole Other [employer] Other 04-22-2021 15:00-0500 Diastolic blood pressure 84 mm[Hg] Breanna Galvan Other [employer] Other 04-22-2021 15:00-0500 Respiratory rate 18 /min Breanna Galvan Other [employer] Other 04-22-2021 15:00-0500 SaO2% (BldA) [Mass fraction] 98 % Breanna Galvan Other [employer] Other 04-22-2021 15:00-0500 Systolic blood pressure 122 mm[Hg] Breanna Galvan Other [employer] Other 03-04-2021 14:45-0500 Body height 160.02 cm Breanna Galvan Other [employer] Other 03-04-2021 14:45-0500 Body temperature 96.4 [degF] Breanna Galvan Other [employer] Other 03-04-2021 14:45-0500 SaO2% (BldA) [Mass fraction] 98 % Breanna Galvan Other [employer] Other 01-21-2021 11:45-0500 Body height 160.02 cm Breanna Galvan Other [employer] Other 01-21-2021 11:45-0500 Body mass index (BMI) [Ratio] 37.02 kg/m2 Breanna Galvan Other [employer] Other 01-21-2021 11:45-0500 Body weight 94.8 kg Breanna Galvan Other [employer] Other 01-21-2021 11:45-0500 Diastolic blood pressure 68 mm[Hg] Breanna Galvan Other [employer] Other 01-21-2021 11:45-0500 Respiratory rate 18 /min Breanna Galvan Other [employer] Other 01-21-2021 11:45-0500 SaO2% (BldA) [Mass fraction] 99 % Breanna Galvan Other [employer] Other 01-21-2021 11:45-0500 Systolic blood pressure 110 mm[Hg] Breanna Galvan Other [employer] Other 12-18-2020 11:00-0400 Body height 160.02 cm Breanna Galvan Other [employer] Other 12-18-2020 11:00-0400 Body mass index (BMI) [Ratio] 36.2 kg/m2 Breanna Galvan Other [employer] Other 12-18-2020 11:00-0400 Body temperature 98.2 [degF] Breanna Galvan Other [employer] Other 12-18-2020 11:00-0400 Body weight 92.72 kg Breanna Galvan Other [employer] Other 12-18-2020 11:00-0400 Diastolic blood pressure 62 mm[Hg] Breanna Mathewmer Other [employer] Other 12-18-2020 11:00-0400 Respiratory rate 18 /min Breanna Mathewmer Other [employer] Other 12-18-2020 11:00-0400 SaO2% (BldA) [Mass fraction] 96 % Breanna Mathewmer Other [employer] Other 12-18-2020 11:00-0400 Systolic blood pressure 98 mm[Hg] Breanna Mathewmer Other [employer] Other 12-26-2018 11:16-0500 Body Temperature 97.59 [degF] [place] 12-26-2018 11:16-0500 BP Diastolic 60 mm[Hg] [place] 12-26-2018 11:16-0500 BP Systolic 126 mm[Hg] [place] 12-26-2018 11:16-0500 Pulse (Heart Rate) 84 /min [place] 12-26-2018 11:16-0500 Pulse Oximetry 97 % [place] 12-26-2018 11:16-0500 Respiratory Rate 16 /min [place] 12-26-2018 07:40-0500 BMI (Body Mass Index) 37.56 kg/m2 [place] 12-26-2018 07:40-0500 Body weight 97.71 kg [place] 12-26-2018 07:40-0500 Height 161.3 cm [place] 12-19-2018 13:23-0500 BMI (Body Mass Index) 37.56 kg/m2 [address], [place] 12-19-2018 13:23-0500 Body Temperature 97.11 [degF] [address], [place] 12-19-2018 13:23-0500 Body weight 97.[address] , [place] 12-19-2018 13:23-0500 BP Diastolic 82 mm[Hg] [address] , [place] 12-19-2018 13:23-0500 BP Systolic 108 mm[Hg] [address] , [place] 12-19-2018 13:23-0500 Height 161.[address] , [place] 12-19-2018 13:23-0500 Pulse (Heart Rate) 88 /min [address], [place] 12-19-2018 13:23-0500 Pulse Oximetry 98 % [address] , [place] 12-19-2018 13:23-0500 Respiratory Rate 16 /min [address] Encounters Encounter Date Encounter Type Care Provider Facility Start: 03-28-2024 ambulatory MD Andreina Thao Fac ility:[facility] Start: 03-21-2024 End: 03-21-2024 Bamboo flowsheet Vandana ANDERSON Work Phone: [facility] Start: 03-21-2024 End: 03-21-2024 Bamboo flowsheet Vandana ANDERSON Work Phone: [facility] Start: 02-21-2024 End: 02-21-2024 ambulatory MD Andreina Thao Facility:[facility] Start: 02-21-2024 End: 02-21-2024 Patient encounter procedure Andreina Thao [facility] [place] Start: 01-02-2024 ambulatory Breanna Noble ty:[facility] Start: 12-29-2023 ambulatory MD Andreina Mccain ility:[facility] Start: 10-27-2023 End: 10-27-[address] 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) (Primary Dx); Numbness and tingling; Hyperlipidemia, unspecified hyperlipidemia type (CMS/HCC); Sensory disturbance; Type 2 diabetes mellitus with other neurologic complication, with long-term current use of insulin (CMS/HCC) Start: 10-04-2023 End: 10-04-2023 ambulatory DO Breanna Galvan Work Phone: [facility] Work Phone: Start: 10-04-2023 End: 10-04-2023 Patient encounter procedure DO Breanna Galvan Work Phone: [facility] Work Phone: Start: 09-29-2023 End: 09-29-2023 ambulatory MD Andreina Thao Facility:[facility] Start: 09-29-2023 End: 09-29-2023 Patient encounter procedure Andreina Thao [facility] [place] Start: 09-26-2023 End: 10-31-2023 ambulatory MD Andreina Thao Facility:[id number] Start: 09-22-2023 End: 09-25-2023 Emergency department patient visit RENATO COOPER [facility] Start: 09-22-2023 End: 09-24-2023 ambulatory [facility] Start: 08-25-2023 Registered Recurring DO Ji Galvan Work Phone: [facility] Start: 08-22-2023 End: 08-22-2023 ambulatory [facility] Start: 08-17-2023 End: 08-17-2023 ambulatory MD [facility] Facility:[facility] Start: 08-17-2023 End: 08-17-2023 Patient encounter procedure [facility] [place] Start: 08-09-2023 End: 08-09-2023 ambulatory NON STAFF [facility] Work Phone: Start: 08-09-2023 End: 08-09-2023 Patient encounter procedure [facility] Work Phone: Start: 07-26-2023 Registered Recurring Jennifer [facility] Start: 07-05-2023 End: 07-05-2023 ambulatory KAI VIDAL Not Available Start: 06-29-2023 End: 06-29-2023 Admission to same day surgery center [facility] [place] Start: 06-29-2023 End: 06-29-2023 ambulatory Kai Vidal Facility:[facility] Start: 06-15-2023 End: 06-15-2023 Patient encounter procedure [facility] Work Phone: Start: 06-15-2023 End: 06-15-2023 ambulatory NON STAFF Facility:[facility] Start: 06-15-2023 Encounter for preprocedural laboratory examination Kai Vidal [facility] Start: 04-12-2023 End: 04-12-2023 ambulatory KAI VIDAL Not Available Start: 04-11-2023 End: 04-11-2023 ambulatory MD Andreina Thao Facility:[facility] Start: 03-31-2023 End: 03-31-2023 ambulatory MD Andreina Thoa Facility:[facility] Start: 03-31-2023 End: 03-31-2023 Patient encounter procedure Andreina Thao [facility] Start: 03-28-2023 End: 03-28-2023 ambulatory MD Sina Thao Facility:[facility] Start: 03-28-2023 End: 03-28-2023 Patient encounter procedure Sinahenny Dawsonnh [facility] Start: 03-28-2023 End: 03-28-2023 Well adult [facility] Start: 03-24-2023 End: 03-24-2023 ambulatory KAI VIDAL Not Available Start: 03-24-2023 End: 03-24-2023 ambulatory Kai Vidal Facility:[facility] Start: 03-24-2023 End: 03-24-2023 Patient encounter procedure Kai Vidal [facility] Start: 03-24-2023 End: 03-24-2023 Office outpatient visit 25 minutes Kai Vidal DO Work Phone: [facility] [place] Comment on above: Obstructive sleep ap allyssa (Primary Dx); Preop testing; Tobacco abuse; Hypertrophy of nasal turbinates; Chronic rhinitis; Nasal septal deviation Start: 03-24-2023 End: 03-24-2023 Patient encounter status Kai Vidal DO Work Phone: [facility] Start: 03-24-2023 Bamboo flowsheet Kai castillo DO Work Phone: [facility] Start: 03-24-2023 Bamboo flowsheet Kai castillo DO Work Phone: [facility] Start: 03-24-2023 Clinisync Result Encounter Kai Vidal DO Work Phone: [facility] Unsolicited Start: 02-22-2023 End: 02-22-2023 [facility] Start: 02-17-2023 End: 02-17-2023 [facility] Start: 02-01-2023 End: 02-01-2023 ambulatory KAI VIDAL Not Available Start: 01-18-2023 End: 01-18-2023 ambulatory VANDANA ROTHMAN Not Available Start: 12-08-2022 End: 12-08-2022 ambulatory NON STAFF [facility] Work Phone: Start: 12-08-2022 End: 12-08-2022 Patient encounter procedure MD Melina Salgado Work Phone: [facility] Work Phone: Start: 11-14-2022 End: 11-16-2022 Evaluation and management of inpatient Ronobir Rocío WEBSTER [facility] Start: 09-08-2022 Office outpatient ne w [address] [facility] Start: 09-08-2022 End: 09-08-2022 ambulatory DO Breanna Galvan Work Phone: [facility] Work Phone: Start: 09-08-2022 End: 09-08-2022 Patient encounter procedure DO Breanna Galvan Work Phone: [facility] Work Phone: Start: 08-30-2022 End: 08-30-2022 Patient encounter procedure Andreinakerry Thao [facility] Start: 08-23-2022 End: 08-23-2022 ambulatory Luis Castellano Other [employer] Other Start: 08-23-2022 Telephone encounter Luis Solitario [employer] Start: 07-28-2022 End: 07-28-2022 ambulatory Luis Castellano Other [employer] Other Start: 07-28-2022 Telephone encounter Luis Solitario [facility] Start: 07-22-2022 End: 07-22-2022 Admission to same day surgery center DO Breanna Galvan Work Phone: [facility] Work Phone: Start: 07-16-2022 End: 07-16-2022 ambulatory Breanna Galvan Other [employer] Other Start: 07-16-2022 Telephone encounter Breanna Cottrell [facility] [place] Start: 06-30-2022 Registered Recurring DO Ji Galvan Work Phone: [facility] Start: 06-17-2022 End: 06-17-2022 ambulatory Breanna Galvan Other [employer] Other Start: 06-17-2022 Telephone encounter Breanna Cottrell [facility] [place] Start: 06-10-[address] JUANA MUÑOZ . Facility: Start: 05-24-2022 End: 05-24-2022 ambulatory Breanan Galvan Other [employer] Other Start: 05-24-2022 Telephone encounter Breanna Cottrell [facility] [place] Start: 05-20-2022 End: 05-20-2022 ambulatory Breanna Galvan Other [employer] Other Start: 05-20-2022 Telephone encounter Breanna Cottrell [facility] [place] Start: 2022 End: 2022 ambulatory Alyse Goins Other [employer] Other Start: 2022 Diabetic care education Alyse Mann[facility]ia [facility] Start: 05-05-2022 End: 05-05-2022 ambulatory Breanna Galvan Other [employer] Other Start: 05-05-2022 Telephone encounter Breanna Cottrell [facility] [place] Start: 05-03-2022 End: 05-03-2022 ambulatory Breanna Galvan Other [employer] Other Start: 05-03-2022 Telephone encounter Breanna Cottrell [facility] [place] Start: 04-15-2022 End: 04-15-2022 ambulatory Danny Kennedynorma Other [employer] Other Start: 04-15-2022 Office outpatient vi sit 25 minutes Danny Wright [facility] [place] Start: 02-09-2022 End: 02-09-2022 ambulatory Breanna Galvan Other [employer] Other Start: 02-09-2022 Telephone encounter Breanna Cottrell [facility] [place] Start: 02-03-2022 End: 02-03-2022 ambulatory DO Breanna Galvan Work Phone: [facility] Work Phone: Start: 02-03-2022 End: 02-03-2022 Departed Referred DO Breanna Galvan Work Phone: [facility] [place] Start: 01-12-2022 End: 01-12-2022 ambulatory Aranza Javed Other [employer] Other Start: 01-12-2022 Office outpatient vi sit 15 minutes Aranza Vincentault [facility] Start: 01-10-2022 End: 01-10-2022 ambulatory Breanna Galvan Other [employer] Other Start: 01-10-2022 Telephone encounter Breanna Galvan [facility] [place] Start: 11-26-2021 End: 11-26-2021 ambulatory Breanna Galvan Other [employer] Other Start: 11-26-2021 Telephone encounter Breanna Galvan [facility] [place] Start: 11-17-2021 End: 11-17-2021 ambulatory Breanna Galvan Other [employer] Other Start: 11-17-2021 Telephone encounter Breanna Galvan [facility] [place] Start: 11-09-2021 End: 11-09-2021 ambulatory Breanna Galvan Other [employer] Other Start: 11-09-2021 Office outpatient vi sit 25 minutes Breanna Galvan [facility] [place] Start: 10-23-2021 End: 10-23-2021 ambulatory Breanna Galvan Other [employer] Other Start: 10-23-2021 Telephone encounter Breanna Galvan [facility] [place] Start: 10-12-2021 End: 10-12-2021 ambulatory Breanna Galvan Other [employer] Other Start: 10-12-2021 Telephone encounter Breanna Cottrell [facility] [place] Start: 10-08-2021 End: 10-08-2021 ambulatory Breanna Galvan Other [employer] Other Start: 10-08-2021 Office outpatient vi sit 25 minutes Breanna Galvan [facility] [place] Start: 09-30-2021 End: 09-30-2021 ambulatory Breanna Galvan Other [employer] Other Start: 09-30-2021 Telephone encounter Breanna Cottrell [facility] [place] Start: 09-15-2021 End: 09-15-2021 ambulatory Breanna Galvan Other [employer] Other Start: 09-15-2021 Telephone encounter Breanna Cottrell [facility] [place] Start: 09-06-2021 End: 09-06-2021 Emergency department patient visit Aleksandar Nickerson [facility] Start: 09-05-2021 End: 09-06-2021 Emergency department patient visit Pietro Oshea [facility] Start: 09-01-2021 End: 09-01-2021 ambulatory Breanna Galvan Other [employer] Other Start: 09-01-2021 Telephone encounter Breanna Cottrell [facility] [place] Start: 08-27-2021 End: 08-27-2021 ambulatory Breanna Galvan Other [employer] Other Start: 08-27-2021 Telephone encounter Breanna Cottrell [facility] [place] Start: 08-26-2021 End: 08-26-2021 ambulatory Breanna Galvan Other [employer] Other Start: 08-26-2021 Telephone encounter Breanna Cottrell [facility] [place] Start: 08-18-2021 End: 08-18-2021 ambulatory Danny Wright Other [employer] Other Start: 08-18-2021 Telephone encounter Danny Wright [facility] [place] Start: 08-10-2021 End: 08-10-2021 ambulatory Breanna Galvan Other [employer] Other Start: 08-10-2021 Telephone encounter Breanna Cottrell [facility] [place] Start: 08-06-2021 End: 08-06-2021 ambulatory Breanna Galvan Other [employer] Other Start: 08-06-2021 Office outpatient vi sit 25 minutes Breanna Galvan [facility] Start: 07-22-2021 End: 07-22-2021 ambulatory Breanna Galvan Other [employer] Other Start: 07-22-2021 Telephone encounter Breanna Galvan [facility] [place] Start: 07-21-2021 End: 07-21-2021 Emergency department patient visit Farshad Murillo [facility] Start: 07-08-2021 End: 07-08-2021 ambulatory Breanna Galvan Other [employer] Other Start: 07-08-2021 Telephone encounter Breanna Galvan [facility] [place] Start: 05-19-2021 End: 05-19-2021 Patient encounter procedure Nahum Muniz [facility] Start: 05-11-2021 End: 05-11-2021 ambulatory Breanna Galvan Other [employer] Other Start: 05-11-2021 Telephone encounter Breanna Cottrell [facility] [place] Start: 05-06-2021 End: 05-06-2021 ambulatory Breanna Galvan Other [employer] Other Start: 05-06-2021 Telephone encounter Breanna Cottrell [facility] [place] Start: 04-28-2021 End: 04-28-2021 ambulatory Breanna Galvan Other [employer] Other Start: 04-28-2021 Telephone encounter Breanna Cottrell [facility] [place] Start: 04-27-2021 End: 04-27-2021 ambulatory Breanna Galvan Other [employer] Other Start: 04-27-2021 Telephone encounter Breanna Cottrell [facility] [place] Start: 04-23-2021 End: 04-23-2021 ambulatory Breanna Galvan Other [employer] Other Start: 04-23-2021 Telephone encounter Bre[facility] [place] Start: 04-22-2021 End: 04-22-2021 ambulatory Breanna Galvan Other [employer] Other Start: 04-22-2021 Encounter for genera l adult medical examination without abnormal findings Breanna Galvan [facility] Start: 04-22-2021 Periodic preventive med est patient 40-64yrs Breanna Galvan [facility] Start: 04-22-2021 Telephone encounter Breanna Cottrell [facility] [place] Start: 04-09-2021 End: 04-09-2021 ambulatory Breanna Galvan Other [employer] Other Start: 04-09-2021 Telephone encounter Breanna Cottrell [facility] [place] Start: 03-23-2021 End: 03-23-2021 ambulatory Breanna Galvan Other [employer] Other Start: 03-23-2021 Telephone encounter Breanna Cottrell [facility] [place] Start: 03-04-2021 End: 03-04-2021 ambulatory Breanna Galvan Other [employer] Other Start: 03-04-2021 Office outpatient vi sit 15 minutes Breanna Galvan [facility] [place] Start: 03-04-2021 End: 06-02-2021 Patient encounter procedure BREANNA GALVAN [facility] Start: 02-04-2021 End: 02-04-2021 ambulatory Breanna Galvan Other [employer] Other Start: 02-04-2021 Telephone encounter Breanna Cottrell [facility] [place] Start: 02-03-2021 End: 02-03-2021 ambulatory Breanna Galvan Other [employer] Other Start: 02-03-2021 Telephone encounter Breanna Cottrell [facility] [place] Start: 01-21-2021 End: 01-21-2021 ambulatory Breanna Galvan Other [employer] Other Start: 01-21-2021 Office outpatient vi sit 25 minutes Breanna Galvan [facility] [place] Start: 01-14-2021 End: 01-14-2021 ambulatory Breanna Galvan Other [employer] Other Start: 01-14-2021 Telephone encounter Breanna Cottrell [facility] Start: 01-13-2021 End: 01-13-2021 ambulatory Breanna Galvan Other [employer] Other Start: 01-13-2021 Telephone encounter Breanna Cottrell [facility] [place] Start: 01-12-2021 End: 01-12-2021 ambulatory Breanna Galvan Other [employer] Other Start: 01-12-2021 Telephone encounter Breanna Cottrell [facility] [place] Start: 01-05-2021 End: 01-05-2021 ambulatory Breanna Galvan Other [employer] Other Start: 01-05-2021 Telephone encounter Breanna Cottrell [facility] [place] Start: 12-25-2020 End: 12-25-2020 ambulatory Breanna Galvan Other [employer] Other Start: 12-25-2020 Telephone encounter Breanna Cottrell [facility] [place] Start: 12-18-2020 End: 12-18-2020 ambulatory Breanna Galvan Other [employer] Other Start: 12-18-2020 Office outpatient vi sit 25 minutes Breanna Galvan [facility] [place] Start: 10-17-2020 End: 10-18-2020 ambulatory MELINA MUNOZ Facility:[facility] Start: 09-11-2020 End: 09-12-2020 ambulatory MELINA MUNOZ Facility:[facility] Start: 07-09-2020 End: 07-10-2020 ambulatory MARCIO HYDE Facility:[facility] Start: 12-26-2018 End: 12-26-2018 Patient encounter procedure ALMA DELIA HAILE [facility] Start: 12-26-2018 End: 12-26-2018 Subsequent hospital visit by physician Alma Delia Haile Work Phone: [facility] Start: 12-19-2018 End: 12-24-2018 Patient encounter procedure ALMA DELIA MANCINI [facility] Start: 12-19-2018 End: 12-23-2018 Subsequent hospital visit by physician Calvin Sarmiento Rm 3 [facility] Pre-Admission Testing Procedures Date Procedure Procedure Detail Performing Clinician Start: 06-29-2023 Plain chest X-ray Start: 06-29-2023 Neurostimulation of cranial nerve Start: 03-24-2023 [facility] BMP Kai Vidal DO Work Phone: Start: 03-24-2023 [facility] EGFR Kai Vidal DO Work Phone: Start: 07-22-2022 Esophagogastroduodenoscopy DO Breanna Ross dmer Work Phone: Start: 10-17-2020 ANESTH SHOULDER PROCEDURE MELINA MUNOZ Start: 10-17-2020 FIXATION OF SHOULDER MELINA MUNOZ Start: 07-09-2020 ANESTH LOWER ARM SURGERY MELINA MUNOZ Start: 07-09-2020 Neuroplasty &/transpos median nrv carpal tunne MARCIO HYDE Start: 07-09-2020 REPAIR ELBOW FARHAD/ATTCH OPEN MARCIO HYDE Start: 07-09-2020 Tendon sheath incision MARCIO HYDE Start: 08-02-2019 Cataract surgery Nahum Muniz Start: 12-26-2018 AMBULATE PATIENT ALMA DELIA GLORIA Start: 12-26-2018 APPLY DRESSING ALMA DELIA HAILE Start: 12-26-2018 APPLY ICE TO AFFECTED AREA ALMA DELIA BLUM Start: 12-26-2018 DIET CLEAR LIQUID ALMA DELIA HAILE Start: 12-26-2018 ELEVATE HOB ALMA DELIA HAILE Start: 12-26-2018 MISCELLANEOUS NURSING CARE ORDER (SPECIFY) ALMA DELIA HAILE Start: 12-26-2018 NOTIFY PHYSICIAN (SPECIFY) ALMA DELIA BLUM Start: 12-26-2018 ORAL CARE ALMA DELIA HAILE Start: 12-26-2018 Gluc bld gluc mntr dev cleared fda spec home use ALMA DELIA HAILE Start: 12-26-2018 DISCHARGE PATIENT ALMA DELIA HAILE Start: 12-26-2018 INCENTIVE SPIROMETRY RT ALMA DELIA Stephens Start: 12-26-2018 BEDREST ALMA DELIA HAILE Start: 12-26-2018 Continuous pulse oximetry ALMA DELIA CHENG Start: 12-26-2018 ENCOURAGE DEEP BREATHING AND COUGHING ALMA DELIA HAILE Start: 12-26-2018 INCENTIVE SPIROMETRY RT ALMA DELIA Stephens Start: 12-26-2018 NEURO/VASCULAR CHECKS ALMA DELIA HAILE Start: 12-26-2018 NOTIFY PHYSICIAN (SPECIFY) ALMA DELIA DONAESTEBAN VIKTORIA Start: 12-26-2018 NURSING COMMUNICATION ALMA DELIA HAILE Start: 12-26-2018 VITAL SIGNS ALMA DELIA HAILE Start: 12-26-2018 Gluc bld gluc mntr dev cleared fda spec home use Unknown Provider Result Start: 12-26-2018 Drug screen class list a ALMA DELIA FRANKLIN Start: 12-26-2018 Urine test visual color cmprsn meths ALMA DELIA HAILE Start: 12-26-2018 Glucose blood reagent strip ALMA DELIA HOOVER Start: 12-26-2018 NOTIFY PHYSICIAN (SPECIFY) ALMA DELIA BLUM Start: 12-26-2018 PULSE OXIMETRY SPOT CHECK ALMA DELIA CHENG Start: 12-26-2018 VITAL SIGNS ALMA DELIA HAILE Start: 12-26-2018 INITIATE OXYGEN THERAPY PROTOCOL ELIZABETH HAILE Start: 12-26-2018 Gluc bld gluc mntr dev cleared fda spec home use Unknown Provider Result Start: 12-26-2018 Drug screen class list a Alma Delia Haile Work Phone: Start: 12-26-2018 Urine test visual color cmprsn meths Alma Delia Haile Work Phone: Start: 12-19-2018 Hemoglobin glycosylated a1c ALMA DELIA HOOVER Start: 12-19-2018 Basic metabolic panel calcium total MIALGROS HAILE Start: 12-19-2018 Blood count complete automated ALMA DELIA HAILE Start: 12-19-2018 Hemoglobin glycosylated a1c Alma Delia Haile Work Phone: Start: 12-19-2018 Ecg routine ecg w/least 12 lds w/i&r ALMA DELIA HAILE Start: 12-19-2018 Basic metabolic panel calcium total Milagros Haile Work Phone: Start: 12-19-2018 Blood count complete automated Alma Delia Haile Work Phone: Start: 12-19-2018 Ecg routine ecg w/least 12 lds i&r only Alma Delia Haile Work Phone: Start: 03-04-1999 Ligation of fallopian tube Andreina Gudime lla Carpal tunnel syndrome (disorder) Andreina Gudimella Herniated structure (morphologic abnormality) Andreina Gudimella Shoulder region stru cture (body structure) Andreina Gudimella Plan of Treatment Date Care Activity Detail Author Start: 07-03-2024 End: 07-03-2024 Patient encounter procedure [facility] Start: 03-21-2024 End: 03-21-2024 Patient encounter procedure 03/21/2024 1:00 PM EST Office Visit [facility] [address] [place] [address] Vandana Rothman, PA [address] [place], [place] [id number] Arrived [facility] Comment on above: Arrived Start: 01-30-2024 End: 01-30-2024 Patient encounter procedure 01/30/2024 1:00 PM EST Office Visit [facility] [address] [facility] [place] [id number] Cory Yeager, DO [address] [place] [address] [facility] Start: 01-23-2024 End: 01-23-2024 Patient encounter procedure 01/23/2024 2:00 PM EST Office Visit [facility] [address] [facility] [place] [address] Cory Yeager, DO [address], [place] [id number] [facility] Start: 01-05-2024 End: 01-05-2024 Patient encounter procedure 01/05/2024 2:40 PM EST Office Visit [facility] [place] [phone] Joaquina Monica, [employer] [address] [place], [place] [facility] Start: 10-16-2023 Influenza vaccination Influenza Vaccine (#1) [facility] Start: 10-13-2023 End: 10-13-2023 Patient encounter procedure 10/13/2023 11:00 AM EDT Office Visit [facility] [address] [facility] [place] [id number] Ana Kimble, DO [address] [place], [place] [id number] Arrived [facility] Comment on above: Arrived Start: 06-29-2023 [facility] Start: 06-29-2023 [facility] Start: 04-12-2023 End: 04-12-2023 Patient encounter procedure 04/12/2023 1:30 PM EST Office Visit [facility] [address] [place] [phone] Kai Vidal, DO [address] [place] [address] [facility] Start: 03-24-2023 End: 03-24-2023 Patient encounter procedure 03/24/2023 2:45 PM EST Office Visit [facility] [address] [place] [id number] Kai Vidal, DO [address] [place] [address] Arrived [facility] Comment on above: Arrived Start: 03-24-2023 End: 03-24-2024 Basic metabolic 1998 panel - Serum or Plasma Basic metabolic panel Lab Routine Preop testing Expected: 03/24/2023 (Approximate), Expires: 03/24/2024 [facility] Work Phone: Comment on above: Expected: 03/24/2023 (Approximate), Expi res: 03/24/2024 Start: 10-15-2022 Influenza vaccination Influenza Vaccine (#1) [facility] Start: 07-22-2022 [facility] Start: 12-20-2019 Creatinine monitoring Creatinine monitoring [place], [place] Start: 12-20-2019 Potassium monitoring Potassium monitoring [place], [place] Start: 03-21-2019 A1C test (Diabetic or Prediabetic) A1C test (Diabetic or Prediabetic) [place] Start: 12-26-2018 End: 12-26-2018 Hospital Encounter [facility] Comment on above: REMOVAL OF CARIOUS TEETH Start: 10-15-2018 Influenza vaccination Flu vaccine (#1) [place] Start: 2011 Screening for malignant neoplasm of breast Mammogram [facility] Start: 05-09-2001 Screening for malignant neoplasm of cervix [facility] Start: 05-09-1992 Cervical cancer screen Cervical cancer screen [place] Start: 05-09-1992 Screening for malignant neoplasm of cervix Pap Smear [facility] Start: 05-09-1990 DTaP/Tdap/Td vaccine (1 - Tdap) DTaP/Tdap/Td vaccine (1 - Tdap) [place] Start: 05-09-1989 Diabetic microalbuminuria test Diabetic microalbuminuria test [place] Start: 05-09-1986 HIV screen HIV screen [place] Start: 05-09-1982 DTaP/Tdap/Td vaccine (1 - Tdap) DTaP/Tdap/Td vaccine (1 - Tdap) [place] Start: 05-09-1981 [object Object] Diabetic foot exam [place] Start: 05-09-1981 Diabetic retinal exam Diabetic retinal exam [place], [place] Start: 05-09-1981 Lipid screen Lipid screen [place], [place] Start: 1971 Screening for malignant neoplasm of colon [facility] Incentive spirometry Incentive s pirometry Respiratory Care Routine Every 2hr while awake until discontinued starting 12/26/2018 [place] Comment on above: Every 2hr while awake until discontinued starting 12/26/2018 Initiate Oxygen Ther apy Protocol Initiate Oxygen Therapy Protocol Respiratory Care Routine Daily until discontinued starting 12/26/2018 [place] Comment on above: Daily until discontinued starting 2018 Patient Education [facility] Work Phone: Patient referral [facility] Work Phone: Phase I & II - meter ed glucose [facility] [place] Comment on above: As Needed until discontinued starting 4X Daily (AC & HS) u ntil discontinued starting 12/26/2018 End: 12-26-2018 POC Glucose Fingerstick POC Glucose Fingerstick Point of Care Testing STAT One Time for 1 Occurrences starting 12/26/2018 until 12/26/2018 [facility] [place] Comment on above: One Time for 1 Occurrences starting 12/15 until 12/26/2018 End: 12-26-2018 Pulse Oximetry Spot Check Pulse Oximetry Spot Check Respiratory Care Routine One Time for 1 Occurrences starting 12/26/2018 until 12/26/2018 [facility] [place] Comment on above: One Time for 1 Occurrences starting 12/15 until 12/26/2018 Immunizations Immunization Date Immunization Notes Care Provider Umesh ackerman 05-30-2023 zoster vaccine recombinant Ana Lamin DO Work Phone: [facility] 03-28-2023 influenza, injectable, quadrivalent, preservative free Sina Gudimella [facility] 03-28-2023 influenza virus vaccine, unspecified formulation Ana Lamin DO Work Phone: [facility] 12-28-2021 zoster vaccine recombinant Andreina Gudimella [facility] 11-16-2021 SARS-CoV-2 (COVID-19 ) [id number] Andreina Gudimella [facility] 11-01-2021 influenza virus vaccine, unspecified formulation Andreina Gudimella [facility] 11-01-2021 influenza, injectable, quadrivalent, preservative free Kai Romerorodgeranna DO Work Phone: [facility] 09-06-2021 tetanus toxoid, reduced diphtheria toxoid, and acellular pertussis vaccine, adsorbed Kai Vidal DO Work Phone: [facility] 09-06-2021 tetanus toxoid, reduced diphtheria toxoid, and acellular pertussis vaccine, adsorbed Pietro Dorie [facility] 04-22-2021 COVID-19 Vaccine Moderna - Documentation Purposes Only Breanna Galvan Other [facility] 10-15-2020 COVID-19 Vaccine Pfizer - Documentation Purposes Only Breanna Galvan Other [employer] Other 09-24-2020 COVID-19 Vaccine Pfizer - Documentation Purposes Only Breanna Cole Other [employer] Other 12-04-2015 influenza virus vaccine, unspecified formulation Andreina Gudimella [facility] 12-04-2015 influenza, seasonal, injectable Kai Vidal DO Work Phone: [facility] NEGATED: Highlighted row has not occurred!11-18-2022 influenza virus vaccine, unspecified formulation Andreina Gudimella [facility] NEGATED: Highlighted row has not occurred!01-16-2021 influenza virus vaccine, unspecified formulation Nahumpriya Muniz [facility] Payers Date Payer Category Payer Self-pay [id number] 2022 Medicare [employer] MEDICARE UHC DUAL COMPLETE [id number] 2022-Present [address] [place] [address] [id number] 2022 Medicare (Managed Care) [facility] MEDICARE [id number] 2021 Medicaid [id number] 2017 Unknown [id number] 2014 Unknown [facility] MEDICA[facility] xxxxxxxxxxx 2014-Present [phone] CLAIMS DEPARTMENT [address] [place] [address] xxxxxxxxxxx [id number] 2014 Unknown [id number] 1971 Unknown [id number] 04.01.830.1.498880.3.579.2. 182 1971 Unknown [id number] 2.840.1.520098.3.579.2. 182 1971 Unknown [id number] 2.840.1.662890.3.579.2. 647 1971 Unknown [id number] 2840.1.956846.3.579.2. 647 1971 Unknown [id number] 2.0.1.939627.3.579.2. 647 1971 Unknown [id number] 2.16.840.1.632124.3.579.2. 593 1971 Unknown [id number] 2.16.840.1.555180.3.579.2. 1259 1971 Unknown [id number] 2.16.840.1.439937.3.579.2. 1259 1971 Unknown [id number] 2.16.840.1.560862.3.579.2. 1259 1971 Unknown [id number] 2.16.840.1.687637.3.579.2. 1259 1971 Unknown [id number] 2.16.840.1.329479.3.579.2. 9 1971 Unknown [id number] 2.16.840.1.254228.3.579.2. 1286 1971 Unknown [id number] 2.16840.1.159535.3.579.2. 128 1971 Unknown [id number] 2.16.840.1.186894.3.579.2. 128 1971 Unknown [id number] 2.16.840.1.787543.3.579.2. 128 1971 Unknown [id number] 2.16.840.1.315788.3.579.2. 1286 1971 Unknown [id number] 2.16840.1.482297.3.579.2. 1286 1971 Unknown [id number] 2.16.840.1.905237.3.579.2. 727 1971 Unknown [id number] 2.16.840.1.597040.3.579.2. 727 1971 Unknown [id number] 2.16.840.1.915472.3.579.2. 727 1971 Unknown [id number] 2.16.840.1.673956.3.579.2. 727 1971 Unknown [id number] 2.16.840.1.017835.3.579.2. 727 1971 Unknown [id number] 2.16.840.1.773556.3.579.2. 727 1971 Unknown [id number] 2.16.840.1.297217.3.579.2. 727 1971 Unknown [id number] 2.16.840.1.367020.3.579.2. 727 1971 Unknown [id number] 2.16.840.1.007193.3.579.2. 727 1959 Medicaid [id number] 2.16.840.1.972514.19 Medicare [id number] 2.16.840.1.497592.19 Medicare [id number] 2.16.840.1.676061.19 Unknown [id number] 2.16.840.1.285539.3.579.2. 531 Unknown [id number] 2.16.840.1.810408.3.579.2. 531 Unknown [id number] 2.16.840.1.850622.3.579.2. 531 Social History Date Type Detail Facility Start: 12-19-2018 Tobacco smoking status NHIS Former smoker [place] Start: 12-19-2018 Alcohol Comment rarely [place], [place] Start: 1970 Sex Assigned At Not on file [place] Start: 01-19-2021 End: 09-29-2023 Tobacco smoking status Heavy tobacco smoker (finding) [facility] Start: 02-01-2023 End: 07-05-2023 Sex Assigned At Female [facility] [employer] Other Start: 09-06-2021 Tobacco smoking status Light tobacco smoker (finding) [facility] Start: 06-10-2020 End: 06-29-2023 Tobacco smoking status NHIS Smoker (finding) [facility] Start: 1970 Sex Assigned At Female F [facility] Start: 08-12-2022 Tobacco smoking status NHIS Never smoked tobacco [facility] Start: 08-12-2022 Tobacco use and exposure Smokeless tobacco non-user [facility] Start: 02-01-2023 End: 09-30-2023 Alcohol intake Lifetime non-drinker (finding) [facility] Start: 02-01-2023 End: 07-05-2023 History of Social function [facility] Start: 12-15-2022 Alcohol Comment Caffeine intak e: 1-2 cups per day [facility] Medical Equipment Procedure Code Equipment Code Equipment Origin al Text Equipment Identifier Dates Phacoemulsification of cataract with intraocular lens implantation Posterior-chamber intraocular lens, pseudophakic ()[id number] FDA Start: 08-02-2019 Phacoemulsification of cataract with intraocular lens implantation Posterior-chamber intraocular lens, pseudophakic ()[id number]) [id number] FDA Start: 08-30-2019 Implantation of hypoglossal nerve stimulator [id number] FDA Start: 06-29-2023 Implantation of hypoglossal nerve stimulator Implantable sleep apnoea treatment system, respiration-sensin g ()[id number] FDA Start: 06-29-2023 Implantation of hypoglossal nerve stimulator ()[id number] FDA Start: 06-29-2023 Start: 01-02-2018 Goals Date Patient Goal Desired Activity /State Functional Status Date Assessment Result Facility 09-29-2023 Functional Status N/A [facility] 08-17-2023 Functional Status N/A [facility] 03-31-2023 Functional Status N/A [facility] 03-28-2023 [facility] N[facility]-17[facility]23 Functional Status N/A [facility] 10-01-2023 Functional Status No [facility] 09-06-2021 Functional Status N/A [facility] 09-05-2021 Functional Status N/A [facility] Clinical Notes 12-18-2020 to 10-13-2023 Ana Kimble, DO - 10/13/2023 11:00 AM RAMÓNKandi Vidal, DO - 03/24/2023 2:45 PM EST Note Date & Type Note Facility 10-13-2023 History of Presen t illness Narrative Images from the original note were not included. Chief Complaint Patient presents with Stroke Subjective Jose Gee, 53 y.o., female, being seen for basal ganglia stroke referred by Dr Andreina Thao MD. Patient stated that she had the stoke on 09/21/23 but did not go to the ER until 09/21. Patient had numbness and tingling on the left side of face, arm, and hand. She did not have much weakness. NO facial droop or slurred speech. Patient states she is still having some numbness on the left side of the face and left hand. Patient was taking Asprin in the hospital but none since. They prescribed the patient a blood thinner. Patient states her memory is the same as it had been prior to the stroke. Patient denies any therapy. Patient admits to getting dizzy since after the stroke, almost falling. That is getting better. She does have DM, HLD, tobacco abuse (1 pack per 1-2 days), family history (mother dec with stroke older age, father recent stroke) No prior history of stroke She is active but not exercising. She tries to watch what she eats- she states she tries to be strict with the diabetic diet Her Hgb A1c 9.x, it had been in the 13's Past Medical History: Diagnosis Date Alcohol dependence in remission ([facility]) 03/24/[address] Thao query response, per outpatient CDI policy. Anxiety Anxiety and depression ([facility]) 01/31/2023 Arthritis Arthritis 01/31/2023 Bankart lesion 03/11/2020 Biceps tendinitis 03/11/2020 Carpal tunnel syndrome Carpal tunnel syndrome of left wrist 05/30/2020 Chicken pox Cocaine abuse in remission ([facility]) 03/24/2023 Cocaine use previous crack cocaine usage Contracture, right ankle 01/31/2023 Current smoker 03/24/2023 Added secondary to documentation in Social History. Deformity of metatarsal 01/31/2023 Diabetes ([facility]) Diabetic mononeuropathy ([facility]) 01/31/2023 Diabetic retinopathy ([facility]) 01/31/2023 Dilation of renal jarret 01/31/2023 Epidermal inclusion cyst 03/24/2023 Epigastric swelling, mass or lump 01/31/2023 Essential hypertension ([facility]) 10/27/2016 Flank pain 01/31/2023 Full thickness rotator cuff tear 12/01/2015 Gastroesophageal reflux disease 01/31/2023 History of medical problems HLD (hyperlipidemia) ([facility]) 01/31/2023 Hospital discharge follow-up 01/31/2023 Hyperlipidemia ([facility]) Impingement syndrome of shoulder region 11/16/2021 Lateral epicondylitis of left elbow 11/01/2018 Left upper quadrant pain 01/31/2023 Lipoma Loose body in joint of left shoulder region 03/11/2020 Morbid obesity ([facility]) previously 400 lb Morbid obesity due to excess calories ([facility]) 01/31/2023 Nicotine dependence 03/24/2023 Non-pressure chronic ulcer of other part of left foot with fat layer exposed ([facility]) 01/31/2023 Obesity (BMI 35.0-39.9 without comorbidity) 10/27/2016 Other acute osteomyelitis, left ankle and foot ([facility]) 01/31/2023 Pain of right shoulder joint on movement 12/20/2017 Recurrent major depressive disorder (HCC) ([facility]) 03/24/[address] Thao query response, per outpatient CDI policy. Sleep apnea Tonsillitis Past Surgical History: Procedure Laterality Date CARPAL TUNNEL RELEASE B/L CT GUIDED TRANSVAGINAL TRANSRECTAL FLUID DRAIN 09/22/2023 CT GUIDED TRANSVAGINAL TRANSRECTAL FLUID DRAIN 09/22/2023 EGD [address] Esqueda, negative ELBOW SURGERY Right LIPOMA RESECTION 08/30/2018 Excision LUQ lipoma w/ PCLaffay OTHER SURGICAL HISTORY 06/29/2023 Inspire implant SHOULDER SURGERY Left TONSILLECTOMY TUBAL LIGATION UMBILICAL HERNIA REPAIR 1995 possible mesh Family History Problem Relation Name Age of Onset Diabetes Mother Hypertension Mother Stroke Mother Social History Tobacco Use Smoking status: Never Smokeless tobacco: Never Substance Use Topics Alcohol use: Never Comment: Caffeine intake: 1-2 cups per day Allergies: Patient has no known allergies. General: No fever or chills HEENT: No nasal congestion or runny nose Pulmonary: No shortness of breath or cough Cardiovascular: No chest pain or palpitations GI: No nausea or vomiting : No dysuria or hematuria Musculoskeletal: No new aches or pains or muscle weakness Infectious: no recurrent fevers or infections Dermatologic: No rashes or skin lesions Neurologic: No new headaches or dizziness Vitals: 10/13/23 1058 BP: 122/75 Pulse: 74 Body mass index is 35.25 kg/m . weight: 199 lb Neurologic exam: General: Normal body habitus, cooperative, pleasant Mental status: Awake, alert to person, place and time. Recent and remote memory are intact. Attention and concentration are normal. Fund of knowledge is appropriate for level of education. HEENT: NC/AT Cranial nerves: CN II: Visual kirk full to confrontation. No loss of vision CN III, IV, : pupils equal round and reactive to light. Extraocular movements intact. No ptosis present. CN V: Facial sensation is normal. CN VII: Full and symmetric facial movement. CN VIII: Hearing is normal CN IX and X: Palate elevates symmetrically. CN XI: Shoulder shrug is normal bilaterally. CN XII: Tongue is midline without atrophy or fasciculation. Speech: Clear and fluent no aphasia or dysarthria Pronator drift: Negative bilateral upper extremity Coordination: Intact, no signs of dysmetria Good finger to nose and rapid alternating movements Sensory: Sensation is intact to light, temperature and vibratory touch throughout four extremities. Pinprick intact in all four extremities. Motor: LUE 5/5 RUE 5/5 LLE 5/5 RLE 5/5 Tone: Physiologic, no tremor, bradykinesia or rigidity DTR: Bilateral Biceps 2/4 Bilateral BR 2/4 Bilateral Patellar 2/4 No spasticity Gait: Normal to casual gait Romberg's Negative Review and summary of old records: Assessment/Plan Diagnoses and all orders for this visit: Cerebral infarction due to thrombosis of right middle cerebral artery (CMS/HCC) - clopidogrel (Plavix) 75 MG tablet; Take 1 tablet (75 mg) by mouth Daily Numbness and tingling Hyperlipidemia, unspecified hyperlipidemia type (CMS/HCC) Sensory disturbance Type 2 diabetes mellitus with other neurologic complication, with long-term current use of insulin (CMS/HCC) 53-year-old female with left chikis sensory paresthesias but no measurable deficit who was found to have a right thalamic cerebral infarct. This was likely thrombotic in nature. She does have multiple stroke risk factors including diabetes that has been under poor control, hyperlipidemia and she has not been taking her cholesterol medicine, tobacco abuse, family history and overall poorly taking care of herself. She did have a full stroke workup including an echocardiogram that was nonacute. She had CTA of the head and neck along with a carotid ultrasound that showed no significant stenosis. She was incidentally found to have thyroid nodules which we will leave to the primary service for any further workup. She was supposed to be on aspirin and Plavix but has not been taking the aspirin at home. She states she has been taking the Plavix. She has been restarted on a statin. She does continue to smoke. Her diabetes is under slightly better control as previously it was in the 13th most recently 10.1 and now it is down into the 90s. She does admit though that she is not doing any regular exercise. She watches her diet but is not aggressive with the diabetic diet. She is overweight. At this time we had a very long talk in the office about her health and how she has to take responsibility for this. She is very young to already have had a stroke. She has a lot of risk factors and only she can modify them. She needs to be compliant with the medication. She needs to be exercising. She needs to be controlling her diabetes better. Unfortunately we can not change Genetics. She voiced understanding I am hopeful that she will take this very seriously as I do not want to see her having further strokes. She has no measurable deficits but she still has a numbness and tingling on the left. Plan Her full stroke workup was reviewed at this time it is treated Continue the Plavix Continue the statin Get on a strict diabetic diet and potentially Mediterranean Stopped smoking Start exercising Control secondary stroke risk factors She will need her lipids repeated after being on the statin for a little while Again very open and honest discussion was had about her being so young and already having stroke but with her multiple risk factors that she needs to be aggressive with controlling. The diagnosis was all discussed with the patient. All questions were answered and they agreed with the treatment plan. Patient will call if there are any new issues or questions. Pt has been fully educated on their diagnosis, treatment options, follow up plan, and return instructions Return to clinic: 2 months documented in this encounter [facility] 09-26-2023 Hospital Discharg e instructions Follow Up Care 09/26/2023 14:13:45 With:Andreina Thao MD, [facility], [facility] Address: [address] [place] [address] [phone] Business (1) When:Within 3 Month(s) [facility] 03-30-2023 Hospital Discharg e instructions Follow Up Care 03/30/2023 14:51:22 With:Andreina Thao MD, [facility] Address: [address] [place] [address] [phone] Business (1) When:01/24/2021 [facility] 03-24-2023 History of Presen t illness Narrative Subjective Patient ID: Jose Gee is a 52 y.o. female who presents for Sleep Apnea (Schedule Dise and Turbs) HPI This patient presents for recheck of obstructive sleep apnea, nasal turbinate hypertrophy, septal deviation, and COPD. Patient has recently undergone pulmonary function test with results currently pending. Continues to have significant difficulties with sleep apnea. Review of Systems Patient does describe difficulties with nasal function. Sleep apnea continues. Not able to tolerate CPAP. Continues to smoke cigarettes. The rest of her review of systems is negative. Allergies as of 03/24/2023 (No Known Allergies) Past Medical History: Diagnosis Date Alcohol dependence in remission ([facility]) 03/24/[address] Thao query response, per outpatient CDI policy. Anxiety Anxiety and depression (CMS/HCC) 01/31/2023 Arthritis Arthritis 01/31/2023 Bankart lesion 03/11/2020 Biceps tendinitis 03/11/2020 Carpal tunnel syndrome Carpal tunnel syndrome of left wrist 05/30/2020 Chicken pox Cocaine abuse in remission ([facility]) 03/24/2023 Cocaine use previous crack cocaine usage Contracture, right ankle 01/31/2023 Current smoker 03/24/2023 Added secondary to documentation in Social History. Deformity of metatarsal 01/31/2023 Diabetes ([facility]) Diabetic mononeuropathy ([facility]) 01/31/2023 Diabetic retinopathy ([facility]) 01/31/2023 Dilation of renal jarret 01/31/2023 Epidermal inclusion cyst 03/24/2023 Epigastric swelling, mass or lump 01/31/2023 Essential hypertension ([facility]) 10/27/2016 Flank pain 01/31/2023 Full thickness rotator cuff tear 12/01/2015 Gastroesophageal reflux disease 01/31/2023 History of medical problems HLD (hyperlipidemia) ([facility]) 01/31/2023 Hospital discharge follow-up 01/31/2023 Hyperlipidemia ([facility]) Impingement syndrome of shoulder region 11/16/2021 Lateral epicondylitis of left elbow 11/01/2018 Left upper quadrant pain 01/31/2023 Lipoma Loose body in joint of left shoulder region 03/11/2020 Morbid obesity ([facility]) previously 400 lb Morbid obesity due to excess calories ([facility]) 01/31/2023 Nicotine dependence 03/24/2023 Non-pressure chronic ulcer of other part of left foot with fat layer exposed ([facility]) 01/31/2023 Obesity (BMI 35.0-39.9 without comorbidity) 10/27/2016 Other acute osteomyelitis, left ankle and foot ([facility]) 01/31/2023 Pain of right shoulder joint on movement 12/20/2017 Recurrent major depressive disorder (HCC) ([facility]) 03/24/[address] Thao query response, per outpatient CDI policy. Sleep apnea Tonsillitis Current Outpatient Medications: albuterol HFA 90 mcg/act inhaler, Inhale 2 puffs every 6 (six) hours, Disp: , Rfl: ARIPiprazole (Abilify) 10 MG tablet, 1 (one) time each day at the same time., Disp: , Rfl: ARIPiprazole (Abilify) 15 MG tablet, TAKE 1 TABLET BY ORAL ROUTE 1 AT BEDTIME CHANGE IN DOSAGE, Disp: , Rfl: busPIRone (Buspar) 15 MG tablet, Take 15 mg by mouth in the morning and 15 mg before bedtime., Disp: , Rfl: busPIRone (Buspar) 30 MG tablet, Take 30 mg by mouth in the morning and 30 mg before bedtime., Disp: , Rfl: citalopram (CeleXA) 40 MG tablet, citalopram 40 mg tablet TAKE 1 TABLET BY MOUTH EVERY DAY, Disp: , Rfl: dicyclomine (Bentyl) 20 MG tablet, Take 20 mg by mouth in the morning and 20 mg in the evening and 20 mg before bedtime., Disp: , Rfl: estradiol (Estrace) 0.1 MG/GM vaginal cream, 1 (ONE) GRAM INSERTED VAGINALLY DIRECTED 3 NIGHTS PER WEEK BEFORE BED, Disp: , Rfl: estradiol (Estrace) 0.1 MG/GM vaginal cream, Insert 2 g into the vagina at bedtime. At bedtime for 2 weeks, then at bedtime twice a week., Disp: 42.5 g, Rfl: 3 fluconazole (Diflucan) 150 MG tablet, fluconazole 150 mg tablet TAKE 1 TABLET BY MOUTH EVERY DAY, Disp: , Rfl: furosemide (Lasix) 20 MG tablet, Take 20 mg by mouth in the morning., Disp: , Rfl: gabapentin (Neurontin) 600 MG tablet, every 8 (eight) hours., Disp: , Rfl: glimepiride (Amaryl) 4 MG tablet, glimepiride 4 mg tablet TAKE 1 TABLET BY MOUTH TWICE A DAY, Disp: , Rfl: hydrocortisone 2.5 % cream, Apply topically, Disp: , Rfl: hydrOXYzine HCl (Atarax) 50 MG tablet, hydroxyzine HCl 50 mg tablet TAKE 1 - 2 TABLETS BY MOUTH AT BEDTIME NEEDED, Disp: , Rfl: Invokana 300 MG, Invokana 300 mg tablet, Disp: , Rfl: metFORMIN XR (Glucophage-XR) 500 MG 24 hr tablet, Take 1,000 mg by mouth in the morning and 1,000 mg before bedtime., Disp: , Rfl: Multiple Vitamin (Daily Vitamin) tablet, 1 (one) time each day at the same time., Disp: , Rfl: nicotine polacrilex (Nicorette) 2 MG gum, 2 mg, Disp: , Rfl: NovoLOG FLEXPEN 100 UNIT/ML pen, INJECT UP TO 30 UNITS DAILY SUBCUTANEOUSLY 3 TIMES A DAY DIRECTED PER SLIDING SCALE, Disp: , Rfl: omeprazole (PriLOSEC) [address] capsule, omeprazole 40 mg capsule,delayed release TAKE 1 CAPSULE BY MOUTH EVERY DAY, Disp: , Rfl: potassium chloride CR (Klor-Con) 10 MEQ ER tablet, TAKE 1 TABLET BY MOUTH EVERY DAY WITH FOOD FOR 30 DAYS, Disp: , Rfl: Rybelsus 7 MG tablet, Take 7 mg by mouth in the morning., Disp: , Rfl: traZODone (Desyrel) 100 MG tablet, TAKE 1 TABLET BY ORAL ROUTE PER AT BEDTIME CHANGE IN DOSAGE, Disp: , Rfl: traZODone (Desyrel) 50 MG tablet, 1 (one) time each day at the same time., Disp: , Rfl: Vivitrol injection, , Disp: , Rfl: Past Surgical History: Procedure Laterality Date CARPAL TUNNEL RELEASE B/L EGD [address] Esqueda, negative ELBOW SURGERY Right LIPOMA RESECTION 08/30/2018 Excision LUQ lipoma w/ PCLaffay SHOULDER SURGERY Left TONSILLECTOMY TUBAL LIGATION UMBILICAL HERNIA REPAIR 1994 possible mesh Social History Socioeconomic History Marital status: Spouse name: Not on file Number of children: Not on file Years of education: Not on file Highest education level: Not on file Occupational History Not on file Tobacco Use Smoking status: Never Smokeless tobacco: Never Substance and Sexual Activity Alcohol use: Never Comment: Caffeine intake: 1-2 cups per day Drug use: Never Sexual activity: Defer Comment: Menopause: Began at age 48 Other Topics Concern Not on file Social History Narrative Not on file Social Determinants of Health Financial Resource Strain: Not on file Food Insecurity: Not on file Transportation Needs: Not on file Physical Activity: Not on file Stress: Not on file Social Connections: Not on file Intimate Partner Violence: Not on file Housing Stability: Not on file Objective ENT Physical Exam Assessment/Plan Diagnoses and all orders for this visit: Obstructive sleep apnea Comments: Will plan drug-induced sleep endoscopy Preop testing - Basic metabolic panel; Future Tobacco abuse Comments: Encouraged to quit smoking Hypertrophy of nasal turbinates Comments: Recommend bilateral inferior turbinate reduction Chronic rhinitis Nasal septal deviation Comments: Will observe for any worsening symptoms documented in this encounter [facility] 11-18-2022 Hospital Discharg e instructions Follow Up Care 11/18/2022 15:02:44 With:Andreina Thao MD, [facility] Address: [address] [place] [address] [phone] Business (1) When:01/24/2021 [facility] [place] 11-16-2022 Evaluation + Plan note Extrac adina from: Title:Discharge Note Author:Marcello Lima DO Date:11/16/22 stable Discharge To, Anticipated II - Home independently Discharge Diet(s): Calorie Controlled- 1800 Calorie Diet, Fat Modified- Low cholesterol (11/16/22 09:48:00) Prescriptions azithromycin 250 mg Tab, 250 mg= 1 tab(s), Oral, Daily gabapentin 600 mg Tab, 600 mg= 1 tab(s), Oral, Daily hydrocortisone Top 2.5% Crm, 1 luci, Topical, BID, 1 refills Invokana 300 mg oral tablet, 300 mg= 1 tab(s), Oral, Daily, 3 refills naproxen 500 mg Tab, 500 mg= 1 tab(s), Oral, BID omeprazole 40 mg Cap-DR, 40 mg= 1 cap(s), Oral, BID, 2 refills predniSONE 10 mg Tab, 1 -, Oral, As Directed Rybelsus 7 mg oral tablet, 7 mg= 1 tab(s), Oral, Daily, Not taking: Doctor d/c sensor, See Instructions, 1 refills Zofran ODT 4 mg Tab-Dis, 4 mg= 1 tab(s), Oral, q8hr Home aripiprazole 10 mg Tab, 10 mg= 1 tab(s), Oral, Daily busPIRone 10 mg Tab, 10 mg= 1 tab(s), Oral, BID CeleXA 40 mg Tab, 40 mg= 1 tab(s), Oral, Daily cloNIDine 0.1 mg tab, 0.1 mg= 1 tab(s), Oral, Daily dicyclomine 20 mg Tab, 20 mg= 1 tab(s), Oral, TID fluconazole 150 mg Tab fluticasone propionate, 50 mcg, Inhalation, Daily furosemide 20 mg Tab, 20 mg= 1 tab(s), Oral, Daily glimepiride 2 mg Tab, 4 mg= 2 tab(s), Oral, BID hydrOXYzine hydrochloride 50 mg oral tablet ibuprofen 800 mg Tab, 800 mg= 1 tab(s), Oral, q8hr Levemir, See Instructions lisinopril 2.5 mg Tab, 2.5 mg= 1 tab(s), Oral, Daily metformin 750 mg Tab-ER, 750 mg= 1 tab(s), Oral, Daily multivitamin, See Instructions mupirocin Top 2% Crm, See Instructions NovoLOG FlexPen 100 units/mL injectable solution, See Instructions Potassium Chloride (Eqv-K-Tab) 10 mEq oral tablet, extended release, 10 mEq= 1 tab(s), Oral, Daily rosuvastatin 40 mg Tab, 40 mg= 1 tab(s), Oral, Daily traZODONE 50 mg Tab, 50 mg= 1 tab(s), Oral, Once a day (at bedtime) Vivitrol 380 mg intramuscular injection, extended release, 380 mg, IntraMuscular, q4wk NEW: 1. Azithromycin 250 mg 1 p.o. daily for 3 more days 2. Prednisone 10 mg 3 tablets for 3 days, 2 tablets for 3 days, 1 tablet for 3 days then stop Recommend PFTs in the outpatient setting and smoking cessation With When Contact Information Andreina Thao Additional Instructions: Call for followup appointment Extracted from: Title:Progress/SOAP Note Author:Tania Lima DO Date:11/15/22 52-year-old female admitted for shortness of breath/reactive airway disease. COVID's include smoking history, anxiety/depression, chronic GERD, hypertension, hyperlipidemia and diabetes type 2 with retinopathy. 1. Reactive airway disease (J45.909: Unspecified asthma, uncomplicated) Remaining saturations of 95 to 90% on room air Has DuoNebs 4 times daily along with albuterol as needed every 2 hours On p.o. prednisone She says she is couple of green phlegm and x-rays are negative for any infectious process and white count is normal for: Started on oral azithromycin for 5 days Respiratory viral panel pending 2. Hypokalemia (E87.6: Hypokalemia) Was initially hypokalemic at 2.7 and her potassium was 5.4 We will suspend potassium supplements 3. Hypocalcemia (E83.51: Hypocalcemia) Resolved 4. Hyperchloremia (E87.8: Other disorders of electrolyte and fluid balance, not elsewhere classified) Resolved 5. Type 2 diabetes mellitus (E11.9: Type 2 diabetes mellitus without complications) Sliding scale insulin along with glimepiride and metformin 6. Smoker (F17.200: Nicotine dependence, unspecified, uncomplicated) Nicotine replacement therapy as needed 7. Anxiety and depression (F41.9: Anxiety disorder, unspecified) On Abilify along with BuSpar and Celexa 8. HTN (hypertension) (I10: Essential (primary) hypertension) Maintain clonidine, Lasix and lisinopril IV hydralazine as needed 9. HLD (hyperlipidemia) (E78.5: Hyperlipidemia, unspecified) On Atorvastatin 10. On deep vein thrombosis (DVT) prophylaxis (Z79.899: Other mcc (current) drug therapy) Subcu Lovenox along with SCDs 11. Chronic GERD (K21.9: Gastro-esophageal reflux disease without esophagitis) Proton pump inhibitor Protonix Acute exacerbation of chronic obstructive pulmonary disease (COPD) (J44.1: Chronic obstructive pulmonary disease with (acute) exacerbation) Depression, unspecified (F32.A: Depression, unspecified) Unspecified asthma with (acute) exacerbation (J45.901: Unspecified asthma with (acute) exacerbation) Orders: azithromycin, 250 mg = 1 tab(s), Tab, Oral, Daily for 10 day(s), Stop date 11/25/22 11:44:00 EDT, NOW, Start date 11/15/22 11:45:00 EDT CBC w/ Auto Diff PLAN: 1. Continue respiratory therapy with DuoNebs 4 times daily along with albuterol every 2 hours as needed 2. Respiratory viral panel pending 3. I went ahead and started on oral azithromycin 2050 mg daily given the fact that she is coughing up green phlegm 4. Nicotine replacement therapy as needed 5. Maintain her meds from home including her glimepiride and metformin for diabetes along with sliding scale insulin; she is also on clonidine, Lasix and lisinopril as well as Lipitor; she also has Abilify along with buspirone and Celexa from home 6. DVT prophylaxis with SCDs and subcu Lovenox 7. Protonix for ulcer prophylaxis 8. Discharge planning in next 24 hours; she will need outpatient follow-up with PFTs Extracted from: Title:Admission H & P Author:Akiko WEBSTER DO Date:11/14/22 1. Reactive airway disease ( J45.909: Unspecified asthma, uncomplicated) High suspicion for COPD given smoking history. Will likely need outpatient testing once recovered from acute illness. Decadron IV given in the emergency department. Will start on prednisone 40 mg p.o. daily. Pulmonary toilet as ordered - duo- nebs q6hrs and alb neb q2hrs prn, Tessalon Perles as needed, mucinex. Will check respiratory viral panel and influenza A/B rapid swab. 2. Hypokalemia (E87.6: Hypokalemia) Replace and recheck with morning labs. 3. Hypocalcemia (E83.51: Hypocalcemia) We will give oral calcium carbonate and recheck with morning labs. Calcium level corrects to 7.5 mg/dL when accounting for albumin level of 2.5 g/dL. 4. Hyperchloremia (E87.8: Other disorders of electrolyte and fluid balance, not elsewhere classified) Unclear significance. Will recheck with morning labs. 5. Type 2 diabetes mellitus (E11.9: Type 2 diabetes mellitus without complications) Sliding scale insulin. Diabetic diet. Resume home medications once reconciled. 6. Smoker (F17.200: Nicotine dependence, unspecified, uncomplicated) Encourage cessation. Nicotine patch as needed 7. Anxiety and depression (F41.9: Anxiety disorder, unspecified) Resume home medications once reconciled. 8. HTN (hypertension) (I10: Essential (primary) hypertension) Resume home medications once reconciled. Hydralazine iv prn. see orders. 9. HLD (hyperlipidemia) (E78.5: Hyperlipidemia, unspecified) Resume home medications once reconciled. 10. On deep vein thrombosis (DVT) prophylaxis (Z79.899: Other mcc (current) drug therapy) SCD, enoxaparin 11. Chronic GERD (K21.9: Gastro-esophageal reflux disease without esophagitis) Proton pump inhibitor Ordered: pantoprazole, 40 mg = 1 tab(s), Tab-DR, Oral, BID, Routine, Start date 10/02/23 9:00:00 EDT, 11/15/22 1:23:00 EDT Orders: acetaminophen, 650 mg = 2 tab(s), Tab, Oral, q6hr PRN Pain, Routine, Start date 11/15/22 1:27:00 EDT, 11/15/22 1:27:00 EDT albuterol, 2.5 mg, 3 mL, Soln-Inh, Inhalation, q2hr PRN Shortness of breath or wheezing, Routine, Start date 11/15/22 1:25:00 EDT albuterol-ipratropium, 3 mL, Soln-Inh, Inhalation, QID, Routine, Start date 11/15/22 8:00:00 EDT aripiprazole, 10 mg = 2 tab(s), Tab, Oral, Daily, Routine, Start date 11/15/22 9:00:00 EDT, 11/15/22 1:21:00 EDT atorvastatin, 80 mg = 2 tab(s), Tab, Oral, Daily, Routine, Start date 11/15/22 9:00:00 EDT, 11/15/22 1:23:00 EDT benzonatate, 100 mg = 1 cap(s), Cap, Oral, TID PRN Cough, Routine, Start date 11/15/22 1:26:00 EDT, 11/15/22 1:26:00 EDT busPIRone, 10 mg = 1 tab(s), Tab, Oral, BID, NOW, Start date 11/15/22 1:21:00 EDT, 11/15/22 1:21:00 EDT calcium carbonate, 1,500 mg = 3 tab(s), Tab-Chew, Oral, Once, Stop date 11/15/22 2:00:00 EDT, Routine, Start date 11/15/22 2:00:00 EDT, 11/15/22 1:41:00 EDT citalopram, 40 mg = 2 tab(s), Tab, Oral, Daily, Routine, Start date 11/15/22 9:00:00 EDT, 11/15/22 1:21:00 EDT clonidine, 0.1 mg = 1 tab(s), Tab, Oral, Daily, Routine, Start date 11/15/22 9:00:00 EDT, 11/15/22 1:21:00 EDT dicyclomine, 20 mg = 1 tab(s), Tab, Oral, TID, NOW, Start date 11/15/22 1:21:00 EDT, 11/15/22 1:21:00 EDT diphenhydrAMINE, 25 mg = 1 cap(s), Cap, Oral, q6hr PRN Itching, Routine, Start date 11/15/22 1:27:00 EDT, 11/15/22 1:27:00 EDT enoxaparin, 40 mg = 0.4 mL, Injection, SubCutaneous, Daily, Routine, Start date 11/15/22 9:00:00 EDT, 11/15/22 1:27:00 EDT furosemide, 20 mg = 1 tab(s), Tab, Oral, Daily, Routine, Start date 11/15/22 9:00:00 EDT, 11/15/22 1:21:00 EDT gabapentin, 600 mg = 1 tab(s), Tab, Oral, Daily, Routine, Start date 11/15/22 9:00:00 EDT, 11/15/22 1:21:00 EDT glimepiride, 4 mg = 2 tab(s), Tab, Oral, BID, Routine, Start date 11/15/22 9:00:00 EDT, 11/15/22 1:21:00 EDT glucose, 50 mL, Soln-IV, IV Push, Once PRN Blood glucose, Routine, Start date 11/15/22 1:26:00 EDT guaifenesin, 1,200 mg = 2 tab(s), Tab-ER, Oral, BID, Routine, Start date 11/15/22 2:00:00 EDT hydrALAZINE, 10 mg = 0.5 mL, Injection, IV Push, q6hr PRN Other (see comment), Routine, Start date 11/15/22 1:27:00 EDT, 11/15/22 1:27:00 EDT hydrOXYzine, 25 mg = 1 tab(s), Tab, Oral, Bedtime PRN Sleep, Routine, Start date 11/15/22 1:22:00 EDT, 11/15/22 1:22:00 EDT ibuprofen, 800 mg = 1 tab(s), Tab, Oral, TID PRN Pain, Routine, Start date 11/15/22 1:27:00 EDT, 11/15/22 1:27:00 EDT insulin lispro, 0-10 Unit(s), Injection-Insulin, SubCutaneous, QIDACHS, Routine, Start date 11/15/22 7:30:00 EDT lisinopril, 2.5 mg = 1 tab(s), Tab, Oral, Daily, Routine, Start date 11/15/22 9:00:00 EDT, 11/15/22 1:22:00 EDT metformin, 500 mg = 1 tab(s), Tab, Oral, BID, Routine, Start date 11/15/22 9:00:00 EDT, 11/15/22 1:22:00 EDT nicotine, 21 mg, 1 patch(es), Patch-ER, TransDermal, Daily PRN Other (see comment) for 30 day(s), Stop date 12/15/22 1:24:00 EDT, Routine, Start date 11/15/22 1:25:00 EDT ondansetron, 4 mg = 2 mL, Injection, IV Push, q6hr PRN Nausea, Routine, Start date 11/15/22 1:27:00 EDT, 11/15/22 1:27:00 EDT potassium chloride, 10 mEq = 1 cap(s), Cap-ER, Oral, Daily, Routine, Start date 11/15/22 9:00:00 EDT, 11/15/22 1:23:00 EDT predniSONE, 40 mg = 2 tab(s), Tab, Oral, Daily, Routine, Start date 11/15/22 9:00:00 EDT, 11/15/22 1:25:00 EDT promethazine, 12.5 mg = 0.5 mL, Injection, IV Push, q6hr PRN Nausea, Routine, Start date 11/15/22 1:27:00 EDT, 11/15/22 1:27:00 EDT trazodone, 50 mg = 1 tab(s), Tab, Oral, Once a day (at bedtime), Routine, Start date 11/15/22 21:00:00 EDT, 11/15/22 1:23:00 EDT Basic Metabolic Panel Below the Knee Intermittent Pneumatic Compression Device Capillary Glucose POC Cardiac Monitoring Diabetic/Calorie Control Diet HgbA1c Hypoglycemia Protocol Responsive Patient Hypoglycemia Protocol Unresponsive Patient Influenza A&B Ag Magnesium Level Notify Provider Vital Signs Notify Provider Vital Signs Oxygen Protocol Place in Status Procalcitonin Respiratory Panel by PCR Resuscitation Status - Full Routine Capillary Glucose POC Tobacco Cessation Education TSH With T4fr Reflex Up ad Corie Vital Signs Weight Anticipated stay greater than 2 midnights due to above Extracted from: Title:ED Note Author:Edith Gomez PA-C Date:11/14/22 1. Hypokalemia (E87.6: Hypok alemia) 2. Hypocalcemia (E83.51: Hypocalcemia) 3. Hyperchloremia (E87.8: Other disorders of electrolyte and fluid balance, not elsewhere classified) 4. Acute exacerbation of chronic obstructive pulmonary disease (COPD) (J44.1: Chronic obstructive pulmonary disease with (acute) exacerbation) Unspecified asthma with (acute) exacerbation (J45.901: Unspecified asthma with (acute) exacerbation) Orders: albuterol, 5 mg, 6 mL, Soln-Inh, Inhalation, Once, Stop date 11/14/22 19:37:00 EDT, STAT, Start date 11/14/22 19:37:00 EDT albuterol-ipratropium, 3 mL, Soln-Inh, Inhalation, Once, Stop date 11/14/22 19:37:00 EDT, STAT, Start date 11/14/22 19:37:00 EDT dexamethasone, 10 mg = 2.5 mL, Injection, IV Push, Once, Stop date 11/14/22 19:37:00 EDT, STAT, Start date 11/14/22 19:37:00 EDT, 11/14/22 19:37:00 EDT Dextrose 5% with 0.45% NaCl and KCl 40 mEq/l 1,000 mL, 1,000 mL, IV, 250 mL/hr, STAT, Start date 11/14/22 21:48:00 EDT, 4 hour(s), Total volume (mL): 1,000, 93 kg, 2.03, m2 potassium chloride, 40 mEq = 2 tab(s), Tab-ER, Oral, Once, Stop date 11/14/22 21:46:00 EDT, STAT, Start date 11/14/22 21:46:00 EDT, 11/14/22 21:46:00 EDT Sodium Chloride 0.9% intravenous solution, 1,000 mL, Soln-IV, IV, Once, Stop date 11/14/22 19:37:00 EDT, STAT, Start date 11/14/22 19:37:00 EDT, Infuse over 61, minute(s) Automated Diff B-Type Natriuretic Peptide Basic Metabolic Panel Blood Culture Charcoal Blood Culture Charcoal CBC w/ Auto Diff Continuous Pulse Oximetry ECG 12 Lead Adult ED Cardiac Monitoring eGFR Hepatic Function Panel Lactic Acid Magnesium Level Oxygen Therapy PT & PTT Rapid COVID Antigen ([facility]) Saline Lock Insert Troponin 0 Hr. Troponin 3 Hr. Troponin 6 Hr. Troponin 9 Hr. UA With Cult Reflex XR Chest Single View Future Appointments Appointment Date:11/18/2022 02:40:00 PM Scheduled Provider:Andreina Thao MD Location:[facility] Appointment Type: Hospital Follow Up w/TCM [facility]10-03-2023 Hospital Discharge instructions Patient Education 11/16/2022 09:59:49 Hypocalcemia, Adult Hypocalcemia, Adult Hypocalcemia is when the level of calcium in a person's blood is below normal. Calcium is a mineralthat is used by the body in many ways. Not having enough blood calcium can affect the nervous system. This can lead to problems with the muscles, the heart, and the brain. What are the causes? This condition may be caused by: A deficiency of vitamin D or magnesium or both. Decreased levels of parathyroid hormone (hypoparathyroidism). Kidney function problems. Low levels of a body protein called albumin. Inflammation of the pancreas (pancreatitis). Not taking in enough vitamins and minerals in the diet or having intestinal problems that interferewith absorption of nutrients. Certain medicines. What are the signs or symptoms? Symptoms of this condition may include: Numbness and tingling in the fingers, toes, or around the mouth. Muscle twitching, aches, or cramps, especially in the legs, feet, and back. Spasm of the voice box. This may make it difficult to breathe or speak. Fast heartbeats (palpitations) and abnormal heart rhythms (dysrhythmias). Shaking uncontrollably (seizures). Memory problems, confusion, or difficulty thinking. Depression, anxiety, irritability, or changes in personality. Long-term (chronic) symptoms of this condition may include: Coarse, brittle hair and nails. Dry skin or lasting skin diseases. These include psoriasis, eczema, or dermatitis. Dental cavities. Clouding of the eye lens (cataracts). Some people may not have any symptoms, especially if they have chronic hypocalcemia. How is this diagnosed? This condition is usually diagnosed with a blood test. You may also have other tests to help determine the underlying cause of the condition. This may include more blood tests and imaging tests. How is this treated? This condition may be treated with: Calcium given by mouth or through an IV. The method used for giving calcium will depend on the severity of the condition. If your condition is severe, you may need to be closely monitored in the hospital. Giving other minerals (electrolytes), such as magnesium. Other treatment will depend on the cause of the condition. Follow these instructions at home: Follow diet instructions from your health care provider or dietitian. Take supplements only as told by your health care provider. Do not take an iron supplement within 2hours of taking a calcium supplement. Keep all follow-up visits. This is important. Contact a health care provider if: You have increased muscle twitching or cramps. You have new swelling in the feet, ankles, or legs. You develop changes in mood, memory, or personality. Get help right away if: You have chest pain. You have persistent rapid or irregular heartbeats. You have trouble breathing. You faint. You start to have seizures. You have confusion. These symptoms may represent a serious problem that is an emergency. Do not wait to see if the symptoms will go away. Get medical help right away. Call your local emergency services (911 in the [place] Do not drive yourself to the hospital. Summary Hypocalcemia is when the level of calcium in a person's blood is below normal. Not having enough blood calcium can affect the nervous system. This condition may be treated with calcium given by mouth or through an IV, or by receiving other minerals. Other treatment depends on the cause of the condition. Take supplements only as told by your health care provider. Contact a health care provider if you have new or worsening symptoms. Keep all follow-up visits. This is important. This information is not intended to replace advice given to you by your health care provider. Make sure you discuss any questions you have with your health care provider. Document Revised: 07/08/2021 Document Reviewed: 07/08/2021 [employer] Patient Education 2022 [employer]. 11/16/2022 09:59:44 Hypokalemia Hypokalemia Hypokalemia means that the amount of potassium in the blood is lower than normal. Potassium is a mineral (electrolyte) that helps regulate the amount of fluid in the body. It also stimulates muscle tightening (contraction) and helps nerves work properly. Normally, most of the body's potassium is inside cells, and only a very small amount is in the blood. Because the amount in the blood is so small, minor changes to potassium levels in the blood can be life-threatening. What are the causes? This condition may be caused by: Antibiotic medicine. Diarrhea or vomiting. Taking too much of a medicine that helps you have a bowel movement (laxative)can cause diarrhea and lead to hypokalemia. Chronic kidney disease (CKD). Medicines that help the body get rid of excess fluid (diuretics). Eating disorders, such as anorexia or bulimia. Low magnesium levels in the body. Sweating a lot. What are the signs or symptoms? Symptoms of this condition include: Weakness. Constipation. Fatigue. Muscle cramps. Mental confusion. Skipped heartbeats or irregular heartbeat (palpitations). Tingling or numbness. How is this diagnosed? This condition is diagnosed with a blood test. How is this treated? This condition may be treated by: Taking potassium supplements. Adjusting the medicines that you take. Eating more foods that contain a lot of potassium. If your potassium level is very low, you may need to get potassium through an IV and be monitored in the hospital. Follow these instructions at home: Eating and drinking Eat a healthy diet. A healthy diet includes fresh fruits and vegetables, whole grains, healthy fats, and lean proteins. If told, eat more foods that contain a lot of potassium. These include: ?Nuts, such as peanuts and pistachios. ?Seeds, such as sunflower seeds and pumpkin seeds. ?Peas, lentils, and amos beans. ?Whole grain and bran cereals and breads. ?Fresh fruits and vegetables, such as apricots, avocado, bananas, cantaloupe, kiwi, oranges, tomatoes, asparagus, and potatoes. ?Juices, such as orange, tomato, and prune. ?Lean meats, including fish. ?Milk and milk products, such as yogurt. General instructions Take knis-vit-tkxhjmc and prescription medicines only as told by your health care provider. This includes vitamins, natural food products, and supplements. Keep all follow-up visits. This is important. Contact a health care provider if: You have weakness that gets worse. You feel your heart pounding or racing. You vomit. You have diarrhea. You have diabetes and you have trouble keeping your blood sugar in your target range. Get help right away if: You have chest pain. You have shortness of breath. You have vomiting or diarrhea that lasts for more than 2 days. You faint. These symptoms may be an emergency. Get help right away. Call 911. Do not wait to see if the symptoms will go away. Do not drive yourself to the hospital. Summary Hypokalemia means that the amount of potassium in the blood is lower than normal. This condition is diagnosed with a blood test. Hypokalemia may be treated by taking potassium supplements, adjusting the medicines that you take, or eating more foods that are high in potassium. If your potassium level is very low, you may need to get potassium through an IV and be monitored in the hospital. This information is not intended to replace advice given to you by your health care provider. Make sure you discuss any questions you have with your health care provider. Document Revised: 10/15/2021 Document Reviewed: 10/15/2021 [employer] Patient Education 2022 [employer]. Follow Up Care 11/14/2022 18:41:52 With:Andreina Thao Address:Unknown When: Unknown Comments:Call for followup appointment [facility]07-26-2023 Evaluation note* Encounter Date Diagnosis Assessment Notes Treatment Notes Treatment Clinical Notes Aug, Obstructive sleep apnea (ICD-10 - G47.33) She has previously documented obstructive sleep apnea, and recalls having 20 apneas per hour on the last study. She has been unable to tolerate positive airway pressure treatment. She has considerable excessive daytime sleepiness and does want to try treatment if she could find something different. She has heard about inspire therapy and wants to explore that further. Her body weight is the same as it was at the time of her last test so she still is very likely suffering from sleep apnea; however she has multiple other sleep disorders playing a role in her fatigue now. In order to qualify for inspire she would need to decrease body weight so her BMI would be under 35, and she believes this would be easily accomplished for her. We will schedule polysomnography at her request. She will return afterwards to review results and progress in her other area of sleep disturbance Aug, Intolerance of continuous positive airway pressure (CPAP) ventilation (ICD-10 - Z78.9) She reports having tried CPAP 2 other times, and unfortunately has been completely unable to tolerate that treatment. She does not feel it is an option for her now. However she is tired of being as tired as she is now and would like to be treated another way if possible. She is specifically interested in Inspire Therapy. I reviewed the advantages and disadvantages of this intervention, and discussed the roadmap for implementation if she does qualify. I advised that she would need to get her body weight to 190 or so, and she states that she believes that would be fairly easy for her to achieve. I explained that without weight reduction she would not qualify for this intervention. We will schedule her for polysomnography Aug, Chronic insomnia (ICD-10 - F51.04) She has several hours awake during the night, but this sleep reinitiation insomnia has more to do with her sleep hygiene habits, her long daytime naps, and the way she is using her sedating medications. She does have sleep phase delay as well. I encouraged her to take her sedating medications, the bedtime meds, about an hour before she goes to bed rather than taking them at 9 PM as she does now. I advised her to minimize nap time to 30 minutes at most if at all possible. With this combination I expect that if she got into bed at an appropriate time, 2:30 AM or so, she would likely fall asleep quickly. With her sleep phase delay and habitual awakening at 11 AM, its not really practical for her to fall asleep before that. 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 I explained how this would set her circadian rhythm system for consistent awakening at 11 AM, which would then mean a predicted bedtime of 3 AM (8 hours earlier). Her very long naps cut into that time of sleep needed at night, which would mean she had need to stay up even later. As she is chronically used to getting up this late I do not think shifting her sleep phase is likely to be productive. I am hopeful that if she takes her p.m. medications around 2 AM, stays up until 3 AM, minimizes nap time, and continues to get up at 11 AM she would find sleep consolidation and reduce daytime sleepiness Aug, Restless leg syndrome (ICD-10 - G25.81) She has significant restless leg symptoms, though she reports these are currently well controlled using her gabapentin. Aug, Lower extremity edema (ICD-10 - R60.0) She has chronic lower extremity edema, and as she is a smoker that raises some concern that she may have nocturnal hypoxia or pulmonary hypertension. She does need to take Lasix chronically, and reports she does not have congestive heart failure Aug, Anxiety with depression (ICD-10 - F41.8) She is on medications for anxiety and depression and reports that these are effective for her. I outlined the meds that could increase d sleepiness and encouraged her to use these before bed, and to not take them in the daytime if possible Aug, GERD without esophagitis (ICD-10 - K21.9) Nocturnal reflux is common with sleep apnea, as negative intrathoracic pressures during apnea can result in inadvertant esophageal reflux. Many times these issues will improve substantially once apneas are controlled Aug, Other The diagnosis o f Sleep Apnea was reviewed in detail, and handout materials were provided. The patient expresses good understanding, We also reviewed the medical and accident risks associated with sleep apnea and excessive fatigue. 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 female seen in the office today for a 3 month f/u for managment of her diabetes. Her A1c is 10.5 which is improved from her previous. She reports improved compliance with taking Invokana 300 mg daily and glimepiride 4 mg twice daily. She reports again non compliance with use her pen injectors of Levemir 35 units twice daily and her Novolog TID sliding scale. She reports non compliance with checking her sugar before meals. She states that she is having trouble with her insurance covering a CGM. In previous encounters, her insurance is in need of BG logs. Education was provided on medication compliance and importance of checking her BG TID prior to meals and maintaing a log of readings. I advised to use alarms and notifications on her phone or calendar to provide reminders. Advised that she would benefit from participating in a diabetes education class and she is agreeable to this. She is due for updated lab work and this was ordered for her today. Advised that will f/u in three months. She acknowledges understanding and agrees to treatment. Apr, Medication monitoring encounter (ICD-10 - Z51.81) Apr, Mixed hyperlipidemia (ICD-10 - E78.2) Patient is doing well with the Rosuvastatin 40mg orally daily and denies side effects. Will check lab work and call with results once obtained Apr, Chronic gastritis without bleeding, unspecified gastritis type (ICD-10 - K29.50) Apr, Depression with anxiety (ICD-10 - F41.8) Patient is doing well on Buspirone 10mg orally twice daily and Citalopram 40mg orally daily and denies side effects. She will continue this medication Apr, Screening for colon cancer (ICD-10 - Z12.11) Patient is dur for colon cancer screenign with colonoscopy. Referral to GI placed. Apr, Esophageal dysphagia (ICD-10 - R13.19) Patient describes sensation of food and pills getting stick when eating. She does have a history of gastric reflux. Advised that will place order for EGD for further evalaution for possible hiatal hernia vs esophagitis. [employer] Other 12-27-2022 Evaluation note* Encounter Date Diagnosis Assessment Notes Treatment Notes Treatment Clinical Notes Jan, Diabetic polyneuropathy associated with type 2 diabetes mellitus (ICD-10 - E11.42) [employer] Other 11-29-2022 Evaluation note* Encounter Date Diagnosis Assessment Notes Treatment Notes Treatment Clinical Notes Dec, Foreign body of right ear lobe, initial encounter (ICD-10 - S00.451A) apply ointment as directed. 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 As for the Levemir will increase it to 35 units twice daily due to the fact that on the days patient does take it twice daily her blood sugars are still not well controlled. However, I had a long discussion with the patient regarding how we are unlikely to be successful in getting her blood sugars to be stable and well controlled and her A1c down into a good range if she is not taking the medication as prescribed. Her noncompliance is directly affecting her ability to control her diabetes. Her A1c today is 13.8 which is worse than it was the last time. I stressed to her the importance of taking the medication as prescribed and putting reminders on her phone or any way possible that she can remember and remember to take it twice daily. Oct, Uncontrolled diabetes mellitus (ICD-10 - E11.65) Oct, Acute right-sided low back pain with right-sided sciatica (ICD-10 - M54.41) Ibuprofen 800 mg helps to control her back pain and she is to continue it. Oct, Irritable bowel syndrome with both constipation and diarrhea (ICD-10 - K58.2) Dicyclomine 20 mg milligrams 2 to 3 times daily is controling her IBS symptoms. [employer] Other 08-29-2022 Evaluation note* Encounter Date Diagnosis Assessment Notes Treatment Notes Treatment Clinical Notes Sep, Type 2 diabetes mellitus with other diabetic kidney complication (ICD-10 - E11.29) [employer] Other 08-25-2022 Evaluation note* Encounter Date Diagnosis Assessment Notes Treatment Notes Treatment Clinical Notes Sep, Uncontrolled diabetes mellitus (ICD-10 - E11.65) Patient continues to be uncontrolled with her diabetes and was instructed to increase her levemir to 30 units twice daily. She is to use her continuous glucose monitor to make better food choices by avoiding foods that worsen the blood sugars. Call if any hypoglycemia. Sep, Cigarette nicotine dependence without complication (ICD-10 - F17.210) Stop nicotine patch as it is not working for her and she is using it improperly by smoking on top of using it. Sep, Irritable bowel syndrome with both constipation and diarrhea (ICD-10 - K58.2) Start Dicyclomine to help with her symptoms of IBS. [employer] Other 07-24-2022 Hospital Discharge instructions Patient Education 09/06/2021 16:55:39 Bronchospasm, Adult Bronchospasm, Adult Bronchospasm is a tightening of the airways going into the lungs. During an episode, it may be harder to breathe. You may cough, and you may make a whistling sound when you breathe (wheeze). This condition often affects people with asthma. What are the causes? This condition is caused by swelling and irritation in the airways. It can be triggered by: An infection (common). Seasonal allergies. An allergic reaction. Exercise. Irritants. These include pollution, cigarette smoke, strong odors, aerosol sprays, and paint fumes. Weather changes. Winds increase molds and pollens in the air. Cold air may cause swelling. Stress and emotional upset. What are the signs or symptoms? Symptoms of this condition include: Wheezing. If the episode was triggered by an allergy, wheezing may start right away or hours later. Nighttime coughing. Frequent or severe coughing with a simple cold. Chest tightness. Shortness of breath. Decreased ability to exercise. How is this diagnosed? This condition is usually diagnosed with a review of your medical history and a physical exam. Tests, such as lung function tests, are sometimes done to look for other conditions. The need for a chest X-ray depends on where the wheezing occurs and whether it is the first time you have wheezed. How is this treated? This condition may be treated with: Inhaled medicines. These open up the airways and help you breathe. They can be taken with an inhaler or a nebulizer device. Corticosteroid medicines. These may be given for severe bronchospasm, usually when it is associatedwith asthma. Avoiding triggers, such as irritants, infection, or allergies. Follow these instructions at home: Medicines Take bxwv-ixi-kusssgi and prescription medicines only as told by your health care provider. If you need to use an inhaler or nebulizer to take your medicine, ask your health care provider to explain how to use it correctly. If you were given a spacer, always use it with your inhaler. Lifestyle Reduce the number of triggers in your home. To do this: ?Change your heating and air conditioning filter at least once a month. ?Limit your use of fireplaces and wood stoves. ?Do not smoke. Do not allow smoking in your home. ?Avoid using perfumes and fragrances. ?Get rid of pests, such as roaches and mice, and their droppings. ?Remove any mold from your home. ?Keep your house clean and dust free. Use unscented cleaning products. ?Replace carpet with wood, tile, or vinyl macario. Carpet can trap dander and dust. ?Use allergy-proof pillows, mattress covers, and box spring covers. ?Wash bed sheets and blankets every week in hot water. Dry them in a dryer. ?Use blankets that are made of polyester or cotton. ?Wash your hands often. ?Do not allow pets in your bedroom. Avoid breathing in cold air when you exercise. General instructions Have a plan for seeking medical care. Know when to call your health care provider and local emergency services, and where to get emergency care. Stay up to date on your immunizations. When you have an episode of bronchospasm, stay calm. Try to relax and breathe more slowly. If you have asthma, make sure you have an asthma action plan. Keep all follow-up visits as told by your health care provider. This is important. Contact a health care provider if: You have muscle aches. You have chest pain. The mucus that you cough up (sputum) changes from clear or white to yellow, green, garcia, or bloody. You have a fever. Your sputum gets thicker. Get help right away if: Your wheezing and coughing get worse, even after you take your prescribed medicines. It gets even harder to breathe. You develop severe chest pain. Summary Bronchospasm is a tightening of the airways going into the lungs. During an episode of bronchospasm, you may have a harder time breathing. You may cough and make a whistling sound when you breathe (wheeze). Avoid exposure to triggers such as smoke, dust, mold, animal dander, and fragrances. When you have an episode of bronchospasm, stay calm. Try to relax and breathe more slowly. This information is not intended to replace advice given to you by your health care provider. Make sure you discuss any questions you have with your health care provider. Document Released: 02/03/2004 Document Revised: 01/13/2018 Document Reviewed: 01/27/2017 [employer] Patient Education 2020 [employer]. Follow Up Care 09/06/2021 16:10:23 With:BREANNA GALVAN Address: [address] [place] [phone]- Business (1) When:09/09/2021 16:55:26 Comments:Call the office of your primary care doctor to arrange for follow-up within the above-stated timeframe. Follow-up with your primary care doctor about this ED visit. You should review your labs, imaging, and diagnoses from this ED visit with your primary care physician. If you were prescribed medications you should discuss possible side-effects and drug interactions with your pharmacist. Call 911 or go to the nearest Emergency Department if you develop any new or worsening symptoms.Seek immediate medical attention if you develop: worsening shortness of breath, difficulty breathing, chest pain,nausea, vomiting, weakness, numbness, tingling, excessive sweating, loss of motion in your arms or legs, or any new or worsening symptoms. [facility]07-24-2022 Evaluation + Plan noteExtracted from: Title:ED Note Author:Sabrina Oshea DOah Lynnette Date :09/06/21 Laceration of left great toe (S91.112A: Laceration without foreign body of left great toe without damage to nail, initial encounter) Orders: cephalexin, 500 mg = 1 cap(s), Oral, q6hr, X 5 day(s), # 20 cap(s), Refills(s) 0, Pharmacy: [facility]/pharmacy #[id number], 160, cm, 09/05/21 23:27:00 EDT, Height/Length Dosing, 90, kg, 09/05/21 23:27:00 EDT, Weight Dosing cephalexin, 500 mg = 1 cap(s), Cap, Oral, Once, Stop date 09/06/21 0:21:00 EDT, STAT, Start date 09/06/21 0:21:00 EDT, 09/06/21 0:21:00 EDT ciprofloxacin, 500 mg = 1 tab(s), Tab, Oral, Once, Stop date 09/06/21 0:21:00 EDT, STAT, Start date 09/06/21 0:21:00 EDT, 09/06/21 0:21:00 EDT ciprofloxacin, 250 mg = 1 tab(s), Oral, q12hr, X 5 day(s), # 10 tab(s), Refills(s) 0, Pharmacy: [facility]/pharmacy #[id number], 160, cm, 09/05/21 23:27:00 EDT, Height/Length Dosing, 90, kg, 09/05/21 23:27:00 EDT, Weight Dosing tetanus/diphtheria/pertussis, acel (Tdap), 0.5 mL, Injection, Intramuscular-Immunization, Once, Stop date 09/06/21 0:20:00 EDT, STAT, Start date 09/06/21 0:20:00 EDT Future Scheduled Tests Radiology* [facility] Kidney Imaging w/ Flow w/ Pharm 01/28/21 [facility]07-24-2022 Evaluation + Plan noteExtracted from: Title:ED Note Author:Aleksandar Nickerson DO Date: Acute bronchospasm (J98.01: Acute bronchospasm) Orders: albuterol, 2.5 mg, 3 mL, Soln-Inh, Inhalation, Once, Stop date 09/06/21 16:49:00 EDT, STAT, Start date 09/06/21 16:49:00 EDT albuterol, 2 puff(s), Inhalation, q6hr Cough and Congestion, 1 EA, Refill(s) 0, [facility]/pharmacy #[id number], 160, cm, 09/06/21 16:17:00 EDT, Height/Length Dosing, 90, kg, 09/06/21 16:17:00 EDT, Weight Dosing predniSONE, 40 mg = 2 tab(s), Oral, Daily, X 3 day(s), # 6 tab(s), Refills(s) 0, Pharmacy: [facility]/pharmacy #[id number], 160, cm, 09/06/21 16:17:00 EDT, Height/Length Dosing, 90, kg, 09/06/21 16:17:00 EDT, Weight Dosing predniSONE, 40 mg = 2 tab(s), Tab, Oral, Once, Stop date 09/06/21 16:49:00 EDT, STAT, Start date 09/06/21 16:49:00 EDT, 09/06/21 16:49:00 EDT Future Scheduled Tests Radiology* NM Kidney Imaging w/ Flow w/ Pharm 01/28/21 [facility]07-24-2022 Hospital Discharge instructions Patient Education 09/06/2021 01:04:30 Laceration Care, Adult Laceration Care, Adult A laceration is a cut that may go through all layers of the skin and into the tissue that is right under the skin. Some lacerations heal on their own. Others need to be closed with stitches (sutures), alexsandra, skin adhesive strips, or skin glue. Proper care of a laceration reduces the risk for infection, helps the laceration heal better, and may prevent scarring. How to care for your laceration Wash your hands with soap and water before touching your wound or changing your bandage (dressing).If soap and water are not available, use hand block placer. Keep the wound clean and dry. If you were given a dressing, you should change it at least once a day, or as told by your health care provider. You should also change it if it becomes wet or dirty. If sutures or alexsandra were used: Keep the wound completely dry for the first 24 hours, or as told by your health care provider. After that time, you may shower or bathe. However, make sure that the wound is not soaked in water untilafter the sutures or alexsandra have been removed. Clean the wound once each day, or as told by your health care provider: ?Wash the wound with soap and water. ?Rinse the wound with water to remove all soap. ?Pat the wound dry with a clean towel. Do not rub the wound. After cleaning the wound, apply a thin layer of antibiotic ointment as told by your health care provider. This will help prevent infection and keep the dressing from sticking to the wound. Have the sutures or alexsandra removed as told by your health care provider. If skin adhesive strips were used: Do not get the skin adhesive strips wet. You may shower or bathe, but be careful to keep the wound dry. If the wound gets wet, pat it dry with a clean towel. Do not rub the wound. Skin adhesive strips fall off on their own. You may trim the strips as the wound heals. Do not remove skin adhesive strips that are still stuck to the wound. They will fall off in time. If skin glue was used: Try to keep the wound dry, but you may briefly wet it in the shower or bath. Do not soak the wound in water, such as by swimming. After you have showered or bathed, gently pat the wound dry with a clean towel. Do not rub the wound. Do not do any activities that will make you sweat heavily until the skin glue has fallen off on itsown. Do not apply liquid, cream, or ointment medicine to the wound while the skin glue is in place. Using those may loosen the film before the wound has healed. If a dressing is placed over the wound, be careful not to apply tape directly over the skin glue. Doing that may cause the glue to be pulled off before the wound has healed. Do not pick at the glue. Skin glue usually remains in place for 5 10 days and then falls off the skin. General instructions Take rgwa-zbu-tslmjjr and prescription medicines only as told by your health care provider. If you were prescribed an antibiotic medicine or ointment, take or apply it as told by your health care provider. Do not stop using it even if your condition improves. Do not scratch or pick at the wound. Check your wound every day for signs of infection. Watch for: ?Redness, swelling, or pain. ?Fluid, blood, or pus. Raise (elevate) the injured area above the level of your heart while you are sitting or lying down for the first 24 48 hours after the laceration is repaired. If directed, put ice on the affected area: ?Put ice in a plastic bag. ?Place a towel between your skin and the bag. ?Leave the ice on for 20 minutes, 2 3 times a day. Keep all follow-up visits as told by your health care provider. This is important. Contact a health care provider if: You received a tetanus shot and you have swelling, severe pain, redness, or bleeding at the injection site. You have a fever. A wound that was closed breaks open. You notice a bad smell coming from your wound or your dressing. You notice something coming out of the wound, such as wood or glass. Your pain is not controlled with medicine. You have increased redness, swelling, or pain at the site of your wound. You have fluid, blood, or pus coming from your wound. You need to change the dressing often due to fluid, blood, or pus that is draining from the wound. You develop a new rash. You develop numbness around the wound. Get help right away if: You develop severe swelling around the wound. Your pain suddenly increases and is severe. You develop painful lumps near the wound or on skin anywhere else on your body. You have a red streak going away from your wound. The wound is on your hand or foot and you cannot properly move a finger or toe. The wound is on your hand or foot, and you notice that your fingers or toes look pale or bluish. Summary A laceration is a cut that may go through all layers of the skin and into the tissue that is right under the skin. Some lacerations heal on their own. Others need to be closed with stitches (sutures), alexsandra, skinadhesive strips, or skin glue. Proper care of a laceration reduces the risk of infection, helps the laceration heal better, and prevents scarring. This information is not intended to replace advice given to you by your health care provider. Make sure you discuss any questions you have with your health care provider. Document Released: 01/31/2006 Document Revised: 03/31/2018 Document Reviewed: 02/20/2018 [employer] Patient Education 2020 [employer]. Follow Up Care 09/05/2021 22:51:59 With:BREANNA GALVAN Address: [address] [place] [phone]- Business (1) When:Within 3 Day(s) [facility]07-14-2022 Evaluation note* Encounter Date Diagnosis Assessment Notes Treatment Notes Treatment Clinical Notes Aug, Uncontrolled diabetes mellitus (ICD-10 - E11.65) [employer] Other 06-23-2022 Evaluation note* Encounter Date Diagnosis Assessment Notes Treatment Notes Treatment Clinical Notes Jul, Type 2 diabetes mellitus with other diabetic kidney complication (ICD-10 - E11.29) Patient's blood sugars clearly are not well controlled with her A1c being 13.1 today which is almost 3 points up compared to where it was 3 months ago. She does not have a good handle on what her blood sugars are as she is not checking regularly enough because it is difficult for her to remember and to check her sugars as often as she needs to. She has poorly controlled diabetes and because of this I highly recommend that we get her on a continuous glucose monitor. She was prescribed a freestyle bimal 2 device and this will definitely help monitor her blood sugars and also reduce her risk of hypoglycemia now that we are going to increase her Levemir to 20 units twice daily. She is to let me know right away if she has any problems with the increase in Levemir. She will follow-up in 3 months for reassessment. Jul, Uncontrolled diabete s mellitus (ICD-10 - E11.65) Jul, Cigarette nicotine dependence without complication (ICD-10 - F17.210) 10 minutes spent in smoking cessation counseling and patient would like to start nicotine patches. She smokes almost 2 packs a day and will be started on 21 mg patches. She was counseled on taking it off before bedtime and not smoking while wearing the patch. Jul, Diabetic polyneuropathy associated with type 2 diabetes mellitus (ICD-10 - E11.42) Patient continues to have neuropathy in the legs as well as some cramping at night and she will have her gabapentin increased to 600 mg nightly because of this. She is to let me know if this makes her too groggy in the morning and we will decrease it to 400 mg. [employer] Other 06-07-2022 Hospital Discharge instructions Patient Education 07/21/2021 13:56:38 Community-Acquired Pneumonia, Adult Community-Acquired Pneumonia, Adult Pneumonia is a type of lung infection that causes swelling in the airways of the lungs. Mucus and fluid may also build up inside the airways. This may cause coughing and difficulty breathing. There are different types of pneumonia. One type can develop while a person is in a hospital. A different type is called community-acquired pneumonia. It develops in people who are not, and have not recently been, in the hospital or another type of health care facility. What are the causes? This condition may be caused by: Viruses. This is the most common cause of pneumonia. Bacteria. Community-acquired pneumonia is often caused by Streptococcus pneumoniae bacteria. These bacteria are often passed from one person to another by breathing in droplets from the cough or sneeze of an infected person. Fungi. This is the least common cause of pneumonia. What increases the risk? The following factors may make you more likely to develop this condition: Having a chronic disease, such as chronic obstructive pulmonary disease (COPD), asthma, congestive heart failure, cystic fibrosis, diabetes, or kidney disease. Having early-stage or late-stage HIV. Having sickle cell disease. Having had your spleen removed (splenectomy). Having poor dental hygiene. Having a medical condition that increases the risk of breathing in (aspirating) secretions from your own mouth and nose. Having a weakened body defense system (immune system). Being a smoker. Traveling to areas where pneumonia-causing germs commonly exist. Being around animal habitats or animals that have pneumonia-causing germs, including birds, bats, rabbits, cats, and farm animals. What are the signs or symptoms? Symptoms of this condition include: A dry cough. A wet (productive) cough. Fever. Sweating. Chest pain, especially when breathing deeply or coughing. Rapid breathing or difficulty breathing. Shortness of breath. Shaking chills. Fatigue. Muscle aches. How is this diagnosed? This condition may be diagnosed based on: Your medical history. A physical exam. You may also have tests, including: Chest X-rays. Tests of your blood oxygen level and other blood gases. Tests on blood, mucus (sputum), fluid around your lungs (pleural fluid), and urine. If your pneumonia is severe, other tests may be done to find the exact cause of your illness. How is this treated? Treatment for this condition depends on many factors, such as the cause of your pneumonia, the medicines you take, and other medical conditions that you have. For most adults, treatment and recovery from pneumonia may occur at home. In some cases, treatment must happen in a hospital. Treatment may include: Medicines that are given by mouth or through an IV, including: ?Antibiotic medicines, if the pneumonia was caused by bacteria. ?Antiviral medicines, if the pneumonia was caused by a virus. Being given extra oxygen. Respiratory therapy. Although rare, treating severe pneumonia may include: Using a machine to help you breathe (mechanical ventilation). This is done if you are not breathingwell on your own and you cannot maintain a safe blood oxygen level. Thoracentesis. This is a procedure to remove fluid from around one lung or both lungs to help you breathe better. Follow these instructions at home: Medicines Take zmlj-hhb-qahnfjy and prescription medicines only as told by your health care provider. ?Only take cough medicine if you are losing sleep. Be aware that cough medicine can prevent your body's natural ability to remove mucus from your lungs. If you were prescribed an antibiotic medicine, take it as told by your health care provider. Do notstop taking the antibiotic even if you start to feel better. General instructions Sleep in a semi-upright position at night. Try sleeping in a reclining chair, or place a few pillows under your head. Rest as needed and get at least 8 hours of sleep each night. Drink enough water to keep your urine pale yellow. This will help to thin out mucus secretions in your lungs. Eat a healthy diet that includes plenty of vegetables, fruits, whole grains, low-fat dairy products, and lean protein. Do not use any products that contain nicotine or tobacco, such as cigarettes, e- cigarettes, and chewing tobacco. If you need help quitting, ask your health care provider. Keep all follow-up visits as told by your health care provider. This is important. How is this prevented? You can lower your risk of developing community-acquired pneumonia by: Getting a pneumococcal vaccine. There are different types and schedules of pneumococcal vaccines. Ask your health care provider which option is best for you. Consider getting the vaccine if: ?You are older than 65 years of age. ?You are older than 19 years of age and are undergoing cancer treatment, have chronic lung disease,or have other medical conditions that affect your immune system. Ask your health care provider if this applies to you. Getting an influenza vaccine every year. Ask your health care provider which type of vaccine is best for you. Getting regular checkups from your dentist. Washing your hands often. If soap and water are not available, use hand block placer. Contact a health care provider if: You have a fever. You are losing sleep because you cannot control your cough with cough medicine. Get help right away if: You have worsening shortness of breath. You have increased chest pain. Your sickness becomes worse, especially if you are an older adult or have a weakened immune system. You cough up blood. Summary Pneumonia is an infection of the lungs. Community-acquired pneumonia develops in people who have not been in the hospital. It can be causedby bacteria, viruses, or fungi. This condition may be treated with antibiotics or antiviral medicines. Severe cases may require hospitalization, mechanical ventilation, and other procedures to drain fluid from the lungs. This information is not intended to replace advice given to you by your health care provider. Make sure you discuss any questions you have with your health care provider. Document Released: 01/31/2006 Document Revised: 09/28/2018 Document Reviewed: 09/28/2018 [employer] Patient Education 2020 [employer]. Follow Up Care 07/21/2021 13:22:52 With:BREANNA GALVAN Address: [address] [place] [phone]- Business (1) When:07/24/2021 13:49:52 [facility]06-07-2022 Evaluation + Plan noteExtracted from: Title:ED Note Author:Ilia GRUBER, Michael Gentile te:07/21/21 Pneumonia (J18.9: Pneumonia, unspecified organism) Orders: doxycycline, 100 mg = 1 cap(s), Oral, q12hr, Take one capsule by mouth every twelve hours for ten days, # 20 cap(s), Refills(s) 0, Pharmacy: [facility]/pharmacy #[id number], 160, cm, 07/21/21 13:28:00 EDT, Height/Length Dosing, 90.5, kg, 07/21/21 13:28:00 EDT, Weight Dosing predniSONE, 60 mg = 3 tab(s), Oral, Daily, X 7 day(s), # 21 tab(s), Refills(s) 0, Pharmacy: [facility]/pharmacy #[id number], 160, cm, 07/21/21 13:28:00 EDT, Height/Length Dosing, 90.5, kg, 07/21/21 13:28:00 EDT, Weight Dosing Future Scheduled Tests Radiology* [place] Kidney Imaging w/ Flow w/ Pharm 01/28/21 [facility]03-15-2022 Evaluation note* Encounter Date Diagnosis Assessment Notes Treatment Notes Treatment Clinical Notes Apr, Mixed hyperlipidemia (ICD-10 - E78.2) [employer] Other 03-10-2022 Evaluation note* Encounter Date Diagnosis Assessment Notes Treatment Notes Treatment Clinical Notes Apr, 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 She is planning to undergo surgical correction of her disc herniations in the neck beginning of May. She did not get the lab work ordered couple weeks ago and I recommended that she get this done JENNIFER. Her diabetes is not well controlled her A1c went up to 10.6 from 10.1. Because of this I informed patient that it is time to start long-acting insulin and I like her to start 15 units of Levemir. This was prescribed for her today. She is going to stop the Trulicity due to diarrhea. I did instruct her to start Metformin again and see if she can tolerate this without having diarrhea, but if not then she can stop that as well. We will make a determination on patient's risk of surgery once lab work is obtained. She is to follow-up in 3 months or sooner if any acute issue arises. Apr, Uncontrolled diabetes mellitus (ICD-10 - E11.65) Apr, Depression with anxiety (ICD-10 - F41.8) Patient has started to see a psychiatrist [facility]. 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) Mar, Mixed hyperlipidemia (ICD-10 - E78.2) Mar, Medication monitorin g encounter (ICD-10 - Z51.81) [employer] Other 02-07-2022 Evaluation note* Encounter Date Diagnosis Assessment Notes Treatment Notes Treatment Clinical Notes Mar, Diabetic polyneuropathy associated with type 2 diabetes mellitus (ICD-10 - E11.42) [employer] Other 01-19-2022 Evaluation note* Encounter Date Diagnosis Assessment Notes Treatment Notes Treatment Clinical Notes Feb, Exposure to COVID-19 virus (ICD-10 - Z20.822) COVID antigen is negative today and given the fact that her symptoms have been ongoing for 2 weeks it is unlikely this is a false negative unless she has cleared the infection previously in which case it would matter anyway she would have resolved the COVID infection. If she feels that she is getting worsening COVID-like illness she is to call and return. Feb, Acute non-recurrent frontal sinusitis (ICD-10 - J01.10) Due to the fact the symptoms have been going on for over a 10 days an antibiotic will be started and patient is instructed to finish the entire course of it. She was also instructed to use OTC medications like Mucinex and do nasal saline flushes. She was instructed that she should start feeling better within the next 5 days and if not she should return or call. She agrees to the treatment plan and voice understanding. 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 Patient has only been on Metformin 750 mg daily and Trulicity 0.75 mg once weekly for 3 weeks which is likely why her blood sugars are doing better. Unfortunately she stopped these last week due to some diarrhea. Unclear if the diarrhea was related to her meds. She was instructed to restart her Trulicity for 2 weeks and if no diarrhea then restart the Metformin. She is to call if she has diarrhea again. Jan, Acute right-sided low back pain with right-sided sciatica (ICD-10 - M54.41) Continue wiht NSAID's and muscle relaxers. Wanted to send to PT but patient isn't driving right now and can't go twice weekly. She was given home exercises. [employer] Other 11-04-2021 Evaluation note* Encounter Date Diagnosis Assessment Notes Treatment Notes Treatment Clinical Notes Dec, Lipoma of left lower extremity (ICD-10 - D17.24) Patient given reassurance that this does not appear to be infection at this time as there is no signs of any infection and it is most consistent on exam with a lipoma. She is to observe it for now and if worsening is to call and return. Dec, Kidney stone (ICD-10 - N20.0) Patient is not having severe symptoms at this time and is to follow-up with urology JENNIFER. Dec, Uncontrolled diabetes mellitus (ICD-10 - E11.65) Patient diabetes is still uncontrolled as evident by her recent lab work in the ER showing her blood sugar to be 455. Patient states that in the past years ago Metformin caused her to have low blood sugar so she was taken off of it and has never tried it again. I recommend she retry to also try Trulicity once weekly injection is this is what her insurance states they will cover. Patient started on 750 mg extended release Metformin and 1.75 mg once weekly Trulicity. [employer] Other Evaluation + Plan note Future Appointments Appointment Date:08/20/2021 02:30:00 PM Scheduled Provider:NESHA RODRIGUEZ PA-C Location:[facility] [place] Appointment Type:URO Office Visit Future Scheduled Tests Radiology* NM Kidney Imaging w/ Flow w/ Pharm [facility] Future App[facility]ments Appointment Date:11/18/2022 02:40:00 PM Scheduled Provider:Andreina Thao MD Location[facility] Future App[facility]ments Appointment Date:02/22/2023 03:30:00 PM Scheduled Provider: Location[facility] Appointment Type:PUL Pulmonary Function Test (FT) Appointment Date:03/28/2023 02:00:00 PM Scheduled Provider: Location:[facility] Appointment Type: Medicare Wellness Subsequent Appointment Date:08/17/2023 01:20:00 PM Scheduled Provider:Andreina Thao MD Location:[facility] Appointment Type:[facility] [place] Evaluation + Plan note Future Appointments Appointment Date:03/28/2023 02:00:00 PM Scheduled Provider: Location:[facility] Appointment Type: Medicare Wellness Subsequent Appointment Date:08/17/2023 01:20:00 PM Scheduled Provider:Andreina Thao MD Location:[facility] Future Appointments Appointment Date:08/17/2023 01:20:00 PM Scheduled Provider:Andreina Thao MD Location:[facility] Appointment Type:FM Open Appointment Date:03/28/2024 01:00:00 PM Scheduled Provider: Location:[facility] Appointment Type: Medicare Wellness Subsequent Future Scheduled Tests Radiology* CT Chest, Low Dose Screening 03/28/23 [facility] evaluation + Plan note Future Appointments Appointment Date:02/21/2024 02:40:00 PM Scheduled Provider:Andreina Thao MD Location:[facility] Appointment Type: Open Appointment Date:03/28/2024 01:00:00 PM Scheduled Provider: Location:[facility] Appointment Type:FM Medicare Wellness Subsequent Future Scheduled Tests Laboratory* Fecal WBC Lactoferrin 08/17/23 * Giardia lamblia, Direct Detection EIA 08/17/23 * O & P Exam, Routine 08/17/23 * Stool Occult Blood 08/17/23 * Enteric Panel by PCR 08/17/23 Radiology* XR Spine Lumbosacral 2 or 3 Views 08/17/23 [facility] kooldineraluation + Plan note Future Appointments Appointment Date:12/29/2023 02:00:00 PM Scheduled Provider:Andreina Thao MD Location:[facility] Appointment Type: Open Appointment Date:02/21/2024 02:40:00 PM Scheduled Provider:Andreina Thao MD Location:[facility] Appointment Type: Open Appointment Date:03/28/2024 01:00:00 PM Scheduled Provider: Location:[facility] Appointment Type:FM Medicare Wellness Subsequent Future Scheduled Tests Laboratory* Fecal WBC Lactoferrin 08/17/23 * Giardia lamblia, Direct Detection EIA 08/17/23 * O & P Exam, Routine 08/17/23 * Stool Occult Blood 08/17/23 * Enteric Panel by PCR 08/17/23 Radiology* XR Spine Lumbosacral 2 or 3 Views 08/17/23 [facility] evaluation + Plan note Future Appointments Appointment Date:03/28/2024 01:00:00 PM Scheduled Provider: Location:[facility] Appointment Type: Medicare Wellness Subsequent Future Scheduled Tests Laboratory* Fecal WBC Lactoferrin 08/17/23 * Giardia lamblia, Direct Detection EIA 08/17/23 * O & P Exam, Routine 08/17/23 * Stool Occult Blood 08/17/23 * Enteric Panel by PCR 08/17/23 Radiology* XR Spine Lumbosacral 2 or 3 Views 08/17/23 [facility] [place] Evaluation noteNo InformationNort [employer] Other Evaluation noteNo assessment information available [facility] Work Phone: Evaluation note* Diagnosis Obstructive sleep apnea- Primary Obstructive sleep apnea (adult) (pediatric) Preop testing Unspecified pre-operative examination Tobacco abuse Tobacco use disorder Hypertrophy of nasal turbinates Chronic rhinitis Nasal septal deviation Deviated nasal septum documented in this encounter [facility] HealthcareEvaluation note* Diagnosis Onset Date Resolution Status Anxiety with depression acut e BMI 33.0-33.9,adult acute Chronic insomnia acute [id number] acute Essential hypertension acute GERD without esophagitis acu te Obstructive sleep apnea acut e Presence of neurostimulator acute Restless leg syndrome acute Sleep phase syndrome, delayed acute [facility] Work Phone: Evaluation note* Diagnosis Cerebral infarction due to thrombosis of right middle cerebral artery (CMS/HCC)- Primary Numbness and tingling Disturbance of skin sensation Hyperlipidemia, unspecified hyperlipidemia type (CMS/HCC) Sensory disturbance Disturbance of skin sensation Type 2 diabetes mellitus with other neurologic complication, with long-term current use of insulin (CMS/HCC) documented in this encounter [facility] HealthcareHistory general Narrative - Reported* Type Description Date Medical History Anxiety Medical History Depression Medical History Hx of drug abuse (crack)-Clean f or 3 years Medical History type II diabetes Medical History neuropathy Medical History hernia Medical History OCD Medical History PTSD Surgical History TUBAL LIGATION Surgical History UMBILICAL HERNIA Surgical History right shoulder Surgical History right elbow Surgical History carpal tunnel release-Bilateral wrists Surgical History Cryst removal-left side of back Surgical History tonsillectomy Surgical History left shoulder 03/28 Hospitalization History see above [employer] Other History general Narrative - Reported* Type Description Date Medical History Anxiety Medical History Depression Medical History Hx of drug abuse (crack)-Clean f or 3 years Medical History type II diabetes Medical History neuropathy Medical History hernia Medical History OCD Surgical History TUBAL LIGATION Surgical History UMBILICAL HERNIA Surgical History right shoulder Surgical History right elbow Surgical History carpal tunnel release-Bilateral wrists Surgical History Cryst removal-left side of back Surgical History tonsillectomy Surgical History left shoulder 03/28 Hospitalization History see above [employer] Other Hospital course Narrative No data available for this section [facility] No data available for this section [facility] No data available for this section [facility] (narrative) , patient moving to [facility] in [facility] Referred by: Andreina Thao MD [facility] Reason for referral (narrative) , [facility] strokeNeeds closer neurologist for follow up Referred by: Andreina Thao MD [facility] Discharge Instructions * Instructions* Alma Delia Haile, JOSEFINAS - 12/26/2018 [facility] [employer] Darian Haile, Silvio.M.D. [phone] Post-Surgery Instructions 1. Leave the gauze in place for 30 minutes. Keep fingers and tongue away from the surgical site. After 30 minutes, remove the gauze with clean hands and replace as necessary. You may experience some oozing for 24-48 hours. If so, cover the site with gauze and keep pressure on it for 30 minutes. 60 minutes if you are currently taking blood thinners. 2. Do not rinse your mouth for 24 hours. After that time rinse gently with 8 ounces of warm water with 1 teaspoon of salt dissolved in it. Do this 3 times a day for 5 days (after meals). 3. A liquid/soft diet is advised for the first 24 hours. After that, a soft diet for the next 48 hours. A nutritionally balanced diet is vaughan to proper healing. Don t skip meals. Gradually progress toa normal diet. Avoid hot liquids. If you are a diabetic, maintaining your normal diet and take medications as usual. 4. No smoking, spitting or drinking with a straw for at least 72 hours. This could dislodge the blood clot because of dry socket (a very painful infection) at the site. 5. Some swelling is normal. Apply ice 20 minutes on, 20 minutes off for at least the first 48 hours. After 48 hours you may use heat or ice, which ever feels better. 6. Some discomfort is as to be expected, you have been given medication help with this. Take this as directed. Resting with your head elevated by 1 or 2 pillows can also be beneficial. 7. Nausea or vomiting can be related to the anesthesia or the medication you are taking. Sip on a carbonated beverage and take your medication with milk to help. 8. A stiff jaw can be alleviated by chewing gum while applying wet heat to the area. 9. After teeth are extracted you may feel hard edges which may think are roots. This is the bony wall that supported the tooth. Leave alone and it will heal nicely. 10. Numbness of the lower lip and tongue sometimes occurs. When it does occur it is usually felt asa minor annoyance, but may take a while to go away. You may expect some swelling, soreness, discoloration, earache and temporary inability to open yourmouth as wide as normal. Beyond is, if anything unusual develops please call the office.[facility] [employer] Darian Haile D.M.D. [phone] Post-Surgery Instructions 1. Leave the gauze in place for 30 minutes. Keep fingers and tongue away from the surgical site. After 30 minutes, remove the gauze with clean hands and replace as necessary. You may experience some oozing for 24-48 hours. If so, cover the site with gauze and keep pressure on it for 30 minutes. 60 minutes if you are currently taking blood thinners. 2. Do not rinse your mouth for 24 hours. After that time rinse gently with 8 ounces of warm water with 1 teaspoon of salt dissolved in it. Do this 3 times a day for 5 days (after meals). 3. A liquid/soft diet is advised for the first 24 hours. After that, a soft diet for the next 48 hours. A nutritionally balanced diet is vaughan to proper healing. Don t skip meals. Gradually progress toa normal diet. Avoid hot liquids. If you are a diabetic, maintaining your normal diet and take medications as usual. 4. No smoking, spitting or drinking with a straw for at least 72 hours. This could dislodge the blood clot because of dry socket (a very painful infection) at the site. 5. Some swelling is normal. Apply ice 20 minutes on, 20 minutes off for at least the first 48 hours. After 48 hours you may use heat or ice, which ever feels better. 6. Some discomfort is as to be expected, you have been given medication help with this. Take this as directed. Resting with your head elevated by 1 or 2 pillows can also be beneficial. 7. Nausea or vomiting can be related to the anesthesia or the medication you are taking. Sip on a carbonated beverage and take your medication with milk to help. 8. A stiff jaw can be alleviated by chewing gum while applying wet heat to the area. 9. After teeth are extracted you may feel hard edges which may think are roots. This is the bony wall that supported the tooth. Leave alone and it will heal nicely. 10. Numbness of the lower lip and tongue sometimes occurs. When it does occur it is usually felt asa minor annoyance, but may take a while to go away. You may expect some swelling, soreness, discoloration, earache and temporary inability to open yourmouth as wide as normal. Beyond is, if anything unusual develops please call the office.[employer] [employer] Darian Haile D.M.D. [phone] Post-Surgery Instructions 1. Leave the gauze in place for 30 minutes. Keep fingers and tongue away from the surgical site. After 30 minutes, remove the gauze with clean hands and replace as necessary. You may experience some oozing for 24-48 hours. If so, cover the site with gauze and keep pressure on it for 30 minutes. 60 minutes if you are currently taking blood thinners. 2. Do not rinse your mouth for 24 hours. After that time rinse gently with 8 ounces of warm water with 1 teaspoon of salt dissolved in it. Do this 3 times a day for 5 days (after meals). 3. A liquid/soft diet is advised for the first 24 hours. After that, a soft diet for the next 48 hours. A nutritionally balanced diet is vaughan to proper healing. Don t skip meals. Gradually progress toa normal diet. Avoid hot liquids. If you are a diabetic, maintaining your normal diet and take medications as usual. 4. No smoking, spitting or drinking with a straw for at least 72 hours. This could dislodge the blood clot because of dry socket (a very painful infection) at the site. 5. Some swelling is normal. Apply ice 20 minutes on, 20 minutes off for at least the first 48 hours. After 48 hours you may use heat or ice, which ever feels better. 6. Some discomfort is as to be expected, you have been given medication help with this. Take this as directed. Resting with your head elevated by 1 or 2 pillows can also be beneficial. 7. Nausea or vomiting can be related to the anesthesia or the medication you are taking. Sip on a carbonated beverage and take your medication with milk to help. 8. A stiff jaw can be alleviated by chewing gum while applying wet heat to the area. 9. After teeth are extracted you may feel hard edges which may think are roots. This is the bony wall that supported the tooth. Leave alone and it will heal nicely. 10. Numbness of the lower lip and tongue sometimes occurs. When it does occur it is usually felt asa minor annoyance, but may take a while to go away. You may expect some swelling, soreness, discoloration, earache and temporary inability to open yourmouth as wide as normal. Beyond is, if anything unusual develops please call the office. documented in this encounter History of Present Illness * Julieta Cervantes RN - 12/26/2018 11:10 AM EST Discharge instructions reviewed with patient and boyfriend. Both verbalized understanding. * Fior Gutierrez RN - 12/26/2018 9:[address] Haile said that consent is fine as written. He discussed the two teeth that he is removing. Y * Fior Gutierrez RN - 12/26/2018 8:56 AM EST Insulin not available in unit. (vial ) Pharmacy resending * Fior Gutierrez RN - 12/26/2018 8:[address] Mcguire wants regular insulin now preoperatively for elevated glucose... he is in explaining thisto patient now. * Fior Gutierrez RN - 12/26/2018 8:35 AM EST Discussed patient's glucose with Dr. Mcguire. He will be in to see patient. * Fior Gutierrez RN - 12/26/2018 8:25 AM EST Attempted to call Dr. Mcguire regarding glucose - no answer. * Fior Gutierrez RN - 12/26/2018 7:30 AM EST Urine drug screen hand delivered by Juanita HURST to [facility] (lab). documented in this encounter Advance Directives Documents on File Type Date Recorded Patient Extension Course Coordinator Expl anation Advance Directives and Living Will Power of Switchgear Repairer Documents on File Type Date Recorded Patient Extension Course Coordinator Expl anation Advance Directives and Living Will Power of Switchgear Repairer Advance Directive Response Recorded Date/ Time Advance Directives No March 10:46am Advance Directive Response Recorded Date/ Time Advance Directives No March 11:46am Summary Purpose Family History Relationship Condition Age at Onset Recorded Date/T mona Not Specified History of coronary artery bypass surgery Unknown father High blood cholesterol Unknown Relationship Condition Age at Onset Recorded Date/T mona Not Specified History of coronary artery bypass surgery Unknown father High blood cholesterol Unknown Not Specified History of stroke Unknown Hypertension Unknown Unknown Diabetes mellitus Unknown Relationship Condition Age at Onset Recorded Date/T mona Not Specified History of coronary artery bypass surgery Unknown Unknown History of stroke Unknown Hypertension Unknown Diabetes mellitus Unknown father High blood cholesterol Unknown Coronary artery disease Unknown Relationship Condition Age at Onset Recorded Date/T mona mother History of coronary artery bypass surgery Unknown Unknown History of stroke Unknown Hypertension Unknown Diabetes mellitus Unknown father High blood cholesterol Unknown Coronary artery disease Unknown Reason for Referral Reason * Waiting for appt Patient is due for screening colonoscopy and EGD due to increased sensation of food and pills getting stuck while eating Diagnosis 1 Screening for colon cancer (Z12.11) Diagnosis 2 Esophageal dysphagia (R13.19) Referral Organization [facility] Family Medichever e Shad Referring Provider First Name Danny Referring Provider Last Name Kennedynorma Referring Provider Specialty Nurse Pracsonia bernard Referred Organization [facility] Gastroenterolo gy Referred Provider Luis Castellano Referred Address [address],[facility] [place] [address] ,[place], [place],[address] Referred Provider Specialty Gastroentero logy Referral Priority Routine General Notes Inés Marya L 09/2022 12:47:17 PM >referral received and sent p2p successful per log Chief Complaint and Reason for Visit Chief Complaint BH Screening, Esophageal Dysphagia Unspecified sleep apnea Chief Complaint Diagnostic sleep aakash dy Chief Complaint Sleep Apnea Sleep Apnea BH SAMANTHA//Inspire Activation Chief Complaint SAMANTHA//Inspire Activat ion BH SAMANTHA/ INSPIRE/ 4 WEEKS Reason for Visit Anxiety with depress ion BMI 33.0-33.9,adult Chronic insomnia [id number] Essential hypertension GERD without esophagitis Obstructive sleep apnea Presence of neurostimulator Restless leg syndrome Sleep phase syndrome, delayed Additional Source Comments Reason for Visit (unrecogniz ed section and content) Status Reason Specialty Diagnoses / Procedures Referre d By Contact Referred To Contact Diagnoses Dental caries, unspecified CARIOUS TEETH Procedures [place] DENTAL SURGERY PROCEDURE REMOVAL OF CARIOUS TEETH Alma Delai Haile, DDS [address] [place] [address] [facility] Reason Comments Sleep Apnea Schedule Dise and Tu rbs Reason Comments Stroke Specialty Diagnoses / Procedures Referred By Contac t Referred To Contact Neurology Diagnoses Other cerebral infarction due to occlusion or stenosis of small artery ([facility]) Procedures [place] OFFICE/OUTPATIENT [facility] 30 MINUTES Andreina Thao MD [address] [place] [address] Kali Saravia MD [address] [place] [address] Referral ID Status Reason Start Date Expiration Date V isits Requested Visits Authorized [id number] Closed Consult and Treat 09/30/2023 03/28/2024 1 1 INFORMATION SOURCE (unrecogn ized section and content) DATE CREATED AUTHOR 01/03/2019 [facility] DATE CREATED AUTHOR AUTHOR'S ORGANIZ ATION 07/04/2021 [facility] DATE CREATED AUTHOR AUTHOR'S ORGANIZ ATION 06/04/2022 [facility] DATE CREATED AUTHOR AUTHOR'S ORGANIZ ATION 07/07/2023 [facility] EPIC DATE CREATED AUTHOR AUTHOR'S ORGANIZ ATION 10/29/2023 [facility] DATE CREATED AUTHOR AUTHOR'S ORGANIZ ATION 10/31/2023 [facility] DATE CREATED AUTHOR AUTHOR'S ORGANIZ ATION 01/26/2024 [facility] DATE CREATED AUTHOR AUTHOR'S ORGANIZ ATION 02/26/2024 [facility] Care Team (unrecognized sect ion and content) Team Status: Inactive Member Role Status Dates Breanna Galvan , DO Primary Care Provider Active Iglesia Cadet MD Attending Provider Active Team Status: Active Member Role Status Dates Breanna Galvan , DO Primary Care Provider Active Team Status: Inactive Member Role Status Dates Breanna Galvan , DO Primary Care Provider Active Luis Castellano MD Attending Provider Active Team Status: Active Member Role Status Dates Breanna Galvan , DO Primary Care Provider Active Gordon Baker MD Attending Provider Active Team Status: Inactive Member Role Status Dates Breanna Galvan , DO Primary Care Provider Active Melina Salgado MD Attending Provider Active Team Status: Active Member Role Status Dates NON STAFF Primary Care Provider Active Team Status: Inactive Member Role Status Dates Melina Salgado MD Attending Provider Active NON STAFF Primary Care Provider Active Insurance Claim Approver Relationship Specialty Start Date End Date Andreina Thao MD [address] [place] [phone] PCP - General Family Medicine 08/12/22 Insurance Claim Approver Relationship Specialty Start Date End Date Andreina Thao MD [address] [place] [phone] PCP - General Family Medicine 08/12/22 Insurance Claim Approver Relationship Specialty Start Date End Date Andreina Thao MD [address] [place] [phone] PCP - General Family Medicine 08/12/22 Team Status: Inactive Member Role Status Dates NON STAFF Primary Care Provider Active Start: June 15, 2023 End: June 15, 2023 Kai Vidal DO Attending Provider Active S tart: June 15, 2023 End: June 15, 2023 Team Status: Inactive Member Role Status Dates NON STAFF Primary Care Provider Active Start: June 29, 2023 End: June 29, 2023 Kai Vidal DO Attending Provider Active S tart: June 29, 2023 End: June 29, 2023 Team Status: Active Member Role Status Dates Breanna Galvan DO Primary Care Provider Active Start: July 26, 2023 Maynor Baker MD Attending Provider Active Start: July 26, 2023 Team Status: Inactive Member Role Status Dates NON STAFF Primary Care Provider Active Start: August 09, 2023 End: August 09, 2023 Melina Salgado MD Attending Provider Active S tart: August 09, 2023 End: August 09, 2023 Team Status: Active Member Role Status Dates Breanna Galvan DO Primary Care Provider Active Start: August 25, 2023 Maynor Baker MD Attending Provider Active Start: August 25, 2023 Team Status: Inactive Member Role Status Dates NON STAFF Primary Care Provider Active Start: October 04, 2023 End: October 04, 2023 Melina Salgado MD Attending Provider Active S tart: October 04, 2023 End: October 04, 2023 Insurance Claim Approver Relationship Specialty Start Date End Date Andreina Thao MD [address] [place] [phone] PCP - General Family Medicine 08/12/22 Insurance Claim Approver Relationship Specialty Start Date End Date Andreina Thao MD [address] [place] [phone] PCP - General Family Medicine 08/12/22 Insurance Claim Approver Relationship Specialty Start Date End Date Andreina Thao MD [address] [place] [address] PCP - General Family Medicine 08/12/22 Goals (unrecognized section and content) Goals may be documented in a n alternate section FOR RECORDS PERTAINING TO PATIENTS WHO ARE OR HAVE BEEN ENROLLED IN A CHEMICAL DEPENDENCY/SUBSTANCEABUSE PROGRAM, SOME INFORMATION MAY BE OMITTED. This clinical summary was aggregated from multiple sources. Caution should be exercised in using it in the provision of clinical care. This summary normalizes information from multiple sources, and as a consequence, information in this document may materially change the coding, format and clinical context of patient data. In addition, data may be omitted in some cases. CLINICAL DECISIONS SHOULD BE BASED ON THE PRIMARY CLINICAL RECORDS. [employer] provides no warranty or guarantee of the accuracy or completeness of information in this document.
[2024-03-27 12:07] LABS: Age Gdln ACOG Testing Note (.); HPV Aptima Negative (Negative); IGP, Aptima HPV, rfx 16/18,45 Note (.)
== END 2024-03-21 20:21 | disposition home or self-care (01) ==
LOC: LAB 20:20
PROVIDERS: Visit Provider Physician Assistant
DX: Z01.419 Encounter for gynecological examination (general) (routine) without abnormal findings (principal)
CPT/HCPCS: 87624; 88175